=== PATIENT | male | born 1975 | race Caucasian/White ===

== ENCOUNTER 2020-02-10 12:16 | Observation (INO) | payer OTHER, SELFPAY ==
[2020-02-10] VITALS (20 sets, daily range): BP systolic 125–156; BP diastolic 60–88; PULSE 94–120; RESP 16–34; TEMP 36.8–40.1; O2SAT 94–98; BMI 36.5
--- NOTE | 2020-02-10 12:43 | ED_ITS ---
HPI - URI/Sore Throat General Chief Complaint: Upper Respiratory Symptoms Stated Complaint: flu or covid lungs hurt chills Time Seen by Provider: 02/10/20 12:43 Source: patient and family Mode of arrival: Ambulatory Limitations: no limitations History of Present Illness HPI Narrative: This is a 44-year-old male who comes to the emergency department with concern for coronavirus. Patient states symptoms started last Tuesday which was 7 days ago. Patient states that he has had fevers intermittently, chills, cough, he started developing some chest pain yesterday and continuing in today. Patient states that he does not feel short of breath. He has had myalgias. Denies any nausea, no vomiting, no other GI or urinary symptoms besides some mild diarrhea several days ago which has resolved. No rashes or skin changes. He does take nortriptyline for neuropathy and states that it is idiopathic and they do not know the cause. He denies any other major medical issues. No tobacco, occasional alcohol, occasional THC and no other illicit. Related Data Allergies Allergy/AdvReac Type Severity Reaction Status Date / Time No Known Drug Allergies Allergy Verified 02/10/20 14:12 Review of Systems Review of Systems ROS Unobtainable: All systems reviewed & are unremarkable except as noted in HPI and below Patient History Medical History (Updated 02/10/20 @ 16:10 by Bobbi Denson DO) Neuropathy alcohol intake frequency: holidays/special occasions only Substance Use Type: marijuana Exam Narrative Exam Narrative: GEN: well nourished, well appearing male, alert and oriented x 3, patient appears to be in mild distress. HEENT: Atraumatic, pupils are equal round reactive to light, extraocular movements are intact HEART: Tachycardic but Regular rate and rhythm without murmur, clicks, rubs. Pulses equal in upper and lower LUNGS:Lungs clear to auscultation, no wheezes, rales, crackles, chest moves symmetrically, no tachypnea or accessory muscle use noted ABD:bowel sounds normal, soft, non-tender, no guarding, rebound, rigidity, no masses noted, no hepatosplenomegaly MSCL: Non-tender, no muscle atrophy, full range of motion NEURO:CN 2-12 intact, sensation normal Initial Vital Signs Initial Vital Signs: Vital Signs Temperature 100.0 F H 02/10/20 12:45 Pulse Rate 111 H 02/10/20 12:45 Pulse Oximetry 96 02/10/20 12:45 Course Orders Ordered: ED Orders 02/10/20 12:59 XR chest 1V Stat 02/10/20 13:10 Blood Culture Stat C-Reactive Protein Quant Stat COVID19 Stat Complete Blood Count AUTO DIFF Stat Comprehensive Metabolic Panel Stat D Dimer Stat Ferritin Stat Influenza A & B (PCR) Stat Lactate (Lactic Acid) Stat Lactate Dehydrogenase Stat Procalcitonin Stat Respiratory Panel (Film Array) Stat Troponin & CK Cardiac Panel Stat 02/10/20 13:39 COVID19 Stat Sodium Chloride (Normal Saline 0.9%) 1,000 mls @ 125 mls/hr IV CONT AUGUSTO Last Infusion: 02/10/20 15:52 Dose: 0 mls/hr Documented by: Infusion: 02/10/20 14:12 Dose: 1,000 mls/hr Documented by: Admin: 02/10/20 13:40 Dose: 125 mls/hr Documented by: LE Sodium Chloride (Normal Saline 0.9%) 1,000 mls @ 125 mls/hr IV CONT AUGUSTO Last Admin: 02/10/20 16:12 Dose: 125 mls/hr Documented by: LE Discontinued Medications Acetaminophen (Acetaminophen 325 Mg Tablet) 975 mg PO NOW ONE Stop: 02/10/20 14:06 Last Admin: 02/10/20 14:12 Dose: 975 mg Documented by: LE Reevaluation(s) Reevaluation #1: Updated patient with lab findings, plan to observe overnight as he has multiple elevated markers an indeterminate troponin. We did discuss patient's other lab findings today. Time: 15:44 Consultations Consultation #1: Spoke with Dr. Tineo kindly accepts for observation. Patient has elevated markers, troponin in the indeterminate range with persistent tachycardia in the department. He is not hypoxic, his chest x-ray is currently negative. We did discuss if D-dimer and decision was made to defer CT imaging. Time: 15:44 Vital Signs Vital signs: Vital Signs - 8 hr 02/10/20 12:45 02/10/20 13:00 02/10/20 13:16 Temperature 100.0 F H Pulse Rate 111 H 112 H 115 H Respiratory Rate 29 H 28 H Blood Pressure 132/82 Pulse Oximetry 96 97 97 02/10/20 13:28 02/10/20 13:30 02/10/20 14:00 Temperature 100.0 F H Pulse Rate 115 H 113 H 114 H Respiratory Rate 22 23 21 Blood Pressure 132/82 127/65 129/79 Pulse Oximetry 96 97 97 02/10/20 14:12 02/10/20 14:30 02/10/20 15:00 Temperature 100.0 F H Pulse Rate 109 H 109 H Respiratory Rate 27 H 26 H Blood Pressure 141/76 H 145/78 H Pulse Oximetry 97 98 02/10/20 15:30 02/10/20 16:00 Temperature Pulse Rate 107 H 101 H Respiratory Rate 34 H 28 H Blood Pressure 149/72 H 155/88 H Pulse Oximetry 96 96 MDM - URI/Sore Throat Lab Data Attestation: I reviewed the patient's lab results. Result diagrams: 02/10/20 13:10 02/10/20 13:10 Labs: Lab Results 02/10/20 02/10/20 02/10/20 Range/Units 13:10 13:10 13:10 WBC 5.9 (4.5-11.0) X10^3/uL RBC 5.52 (4.5-5.9) X10^6/uL Hgb 17.0 (13.5-17.5) g/dL Hct 48.6 (41-53) % MCV 88.2 (80-100) fL MCH 30.9 (26-34) PG MCHC 35.1 (30-36) % RDW 13.1 (11.6-14.8) % Plt Count 131 L (150-400) X10^3/uL Neut % (Auto) 47.4 L (50-75) % Lymph % (Auto) 41.3 H (25-40) % Cascade % (Auto) 10.7 (3-14) % Eos % (Auto) 0.1 L (2-4) % Baso % (Auto) 0.5 (0-2) % Neut # (Auto) 2800 (3376-3564) /uL Lymph # (Auto) 2400 (6489-8387) /uL Cascade # (Auto) 600 (0-900) /uL Eos # (Auto) 0 (0-450) /uL Baso # (Auto) 0 (0-100) /uL D-Dimer (<230) ng/mL Sodium 134 L (137-145) mmol/L Potassium 4.2 (3.4-5.1) mmol/L Chloride 102 (98-107) mmol/L Carbon Dioxide 28 (22-32) mmol/L BUN 14 (9-20) mg/dL Creatinine 1.06 (0.66-1.25) mg/dL Estimated GFR > 60.0 (>60) mL/min BUN/Creatinine Ratio 13.2 (6-22) Glucose 109 H (70-100) mg/dL Lactate (0.7-2.1) mmol/L Calcium 8.7 (8.4-10.2) mg/dL Ferritin 1090 H (18-464) ng/mL Total Bilirubin 0.9 (0.2-1.3) mg/dL AST 61 H (17-59) IU/L ALT 96 H (<50) IU/L Alkaline Phosphatase 74 (38-126) U/L Lactate Dehydrogenase (313-618) U/L Total Creatine Kinase 81 (55-170) U/L CK-MB (CK-2) TNP CK-MB (CK-2) Rel Index TNP Troponin I 0.048 H (0.01-0.034) ng/mL C-Reactive Protein 2.2 H (<1.0) mg/dL Total Protein 8.3 H (6.3-8.2) g/dL Albumin 4.3 (3.5-5.0) g/dL Globulin 4.0 (1.7-4.1) g/dL Albumin/Globulin Ratio 1.1 (1.0-2.8) Procalcitonin (<0.5) ng/mL Chlamy pneumoniae PCR (Not Detect) Adenovirus (PCR) (Not Detect) B.parapertussis DNA PCR (Not Detect) Coronavirus OC43 (PCR) (Not Detect) Coronavirus HKU1 (PCR) (Not Detect) Coronavirus 229E (PCR) (Not Detect) COVID-19 PCR (Negative) Coronavirus NL63 (PCR) (Not Detect) Human Metapneumovir PCR (Not Detect) Influenza A (RT-PCR) Flu a negative (NEGATIVE) Influenza Type A (PCR) (Not Detect) Influenza B (RT-PCR) Flu b negative (NEGATIVE) Influenza Type B (PCR) (Not Detect) M. pneumoniae (PCR) (Not Detect) Parainfluenza 1 (PCR) (Not Detect) Parainfluenza 2 (PCR) (Not Detect) Parainfluenza 3 (PCR) (Not Detect) Parainfluenza 4 (PCR) (Not Detect) RSV (PCR) (Not Detect) Entero/Rhino (PCR) (Not Detect) 02/10/20 02/10/20 02/10/20 Range/Units 13:10 13:10 13:10 WBC (4.5-11.0) X10^3/uL RBC (4.5-5.9) X10^6/uL Hgb (13.5-17.5) g/dL Hct (41-53) % MCV (80-100) fL MCH (26-34) PG MCHC (30-36) % RDW (11.6-14.8) % Plt Count (150-400) X10^3/uL Neut % (Auto) (50-75) % Lymph % (Auto) (25-40) % Cascade % (Auto) (3-14) % Eos % (Auto) (2-4) % Baso % (Auto) (0-2) % Neut # (Auto) (2240-9976) /uL Lymph # (Auto) (0310-5109) /uL Cascade # (Auto) (0-900) /uL Eos # (Auto) (0-450) /uL Baso # (Auto) (0-100) /uL D-Dimer (<230) ng/mL Sodium (137-145) mmol/L Potassium (3.4-5.1) mmol/L Chloride (98-107) mmol/L Carbon Dioxide (22-32) mmol/L BUN (9-20) mg/dL Creatinine (0.66-1.25) mg/dL Estimated GFR (>60) mL/min BUN/Creatinine Ratio (6-22) Glucose (70-100) mg/dL Lactate 1.0 (0.7-2.1) mmol/L Calcium (8.4-10.2) mg/dL Ferritin (18-464) ng/mL Total Bilirubin (0.2-1.3) mg/dL AST (17-59) IU/L ALT (<50) IU/L Alkaline Phosphatase (38-126) U/L Lactate Dehydrogenase (313-618) U/L Total Creatine Kinase (55-170) U/L CK-MB (CK-2) CK-MB (CK-2) Rel Index Troponin I (0.01-0.034) ng/mL C-Reactive Protein (<1.0) mg/dL Total Protein (6.3-8.2) g/dL Albumin (3.5-5.0) g/dL Globulin (1.7-4.1) g/dL Albumin/Globulin Ratio (1.0-2.8) Procalcitonin 0.08 (<0.5) ng/mL Chlamy pneumoniae PCR (Not Detect) Adenovirus (PCR) (Not Detect) B.parapertussis DNA PCR (Not Detect) Coronavirus OC43 (PCR) (Not Detect) Coronavirus HKU1 (PCR) (Not Detect) Coronavirus 229E (PCR) (Not Detect) COVID-19 PCR Positive H (Negative) Coronavirus NL63 (PCR) (Not Detect) Human Metapneumovir PCR (Not Detect) Influenza A (RT-PCR) (NEGATIVE) Influenza Type A (PCR) (Not Detect) Influenza B (RT-PCR) (NEGATIVE) Influenza Type B (PCR) (Not Detect) M. pneumoniae (PCR) (Not Detect) Parainfluenza 1 (PCR) (Not Detect) Parainfluenza 2 (PCR) (Not Detect) Parainfluenza 3 (PCR) (Not Detect) Parainfluenza 4 (PCR) (Not Detect) RSV (PCR) (Not Detect) Entero/Rhino (PCR) (Not Detect) 02/10/20 02/10/20 02/10/20 Range/Units 13:10 13:10 13:10 WBC (4.5-11.0) X10^3/uL RBC (4.5-5.9) X10^6/uL Hgb (13.5-17.5) g/dL Hct (41-53) % MCV (80-100) fL MCH (26-34) PG MCHC (30-36) % RDW (11.6-14.8) % Plt Count (150-400) X10^3/uL Neut % (Auto) (50-75) % Lymph % (Auto) (25-40) % Cascade % (Auto) (3-14) % Eos % (Auto) (2-4) % Baso % (Auto) (0-2) % Neut # (Auto) (7588-9190) /uL Lymph # (Auto) (9697-4437) /uL Cascade # (Auto) (0-900) /uL Eos # (Auto) (0-450) /uL Baso # (Auto) (0-100) /uL D-Dimer 277 H (<230) ng/mL Sodium (137-145) mmol/L Potassium (3.4-5.1) mmol/L Chloride (98-107) mmol/L Carbon Dioxide (22-32) mmol/L BUN (9-20) mg/dL Creatinine (0.66-1.25) mg/dL Estimated GFR (>60) mL/min BUN/Creatinine Ratio (6-22) Glucose (70-100) mg/dL Lactate (0.7-2.1) mmol/L Calcium (8.4-10.2) mg/dL Ferritin (18-464) ng/mL Total Bilirubin (0.2-1.3) mg/dL AST (17-59) IU/L ALT (<50) IU/L Alkaline Phosphatase (38-126) U/L Lactate Dehydrogenase 869 H (313-618) U/L Total Creatine Kinase (55-170) U/L CK-MB (CK-2) CK-MB (CK-2) Rel Index Troponin I (0.01-0.034) ng/mL C-Reactive Protein (<1.0) mg/dL Total Protein (6.3-8.2) g/dL Albumin (3.5-5.0) g/dL Globulin (1.7-4.1) g/dL Albumin/Globulin Ratio (1.0-2.8) Procalcitonin (<0.5) ng/mL Chlamy pneumoniae PCR Not detected (Not Detect) Adenovirus (PCR) Not detected (Not Detect) B.parapertussis DNA PCR Not detected (Not Detect) Coronavirus OC43 (PCR) Not detected (Not Detect) Coronavirus HKU1 (PCR) Not detected (Not Detect) Coronavirus 229E (PCR) Not detected (Not Detect) COVID-19 PCR (Negative) Coronavirus NL63 (PCR) Not detected (Not Detect) Human Metapneumovir PCR Not detected (Not Detect) Influenza A (RT-PCR) (NEGATIVE) Influenza Type A (PCR) Not detected (Not Detect) Influenza B (RT-PCR) (NEGATIVE) Influenza Type B (PCR) Not detected (Not Detect) M. pneumoniae (PCR) Not detected (Not Detect) Parainfluenza 1 (PCR) Not detected (Not Detect) Parainfluenza 2 (PCR) Not detected (Not Detect) Parainfluenza 3 (PCR) Not detected (Not Detect) Parainfluenza 4 (PCR) Not detected (Not Detect) RSV (PCR) Not detected (Not Detect) Entero/Rhino (PCR) Not detected (Not Detect) 02/10/20 Range/Units 13:39 WBC (4.5-11.0) X10^3/uL RBC (4.5-5.9) X10^6/uL Hgb (13.5-17.5) g/dL Hct (41-53) % MCV (80-100) fL MCH (26-34) PG MCHC (30-36) % RDW (11.6-14.8) % Plt Count (150-400) X10^3/uL Neut % (Auto) (50-75) % Lymph % (Auto) (25-40) % Cascade % (Auto) (3-14) % Eos % (Auto) (2-4) % Baso % (Auto) (0-2) % Neut # (Auto) (6747-1017) /uL Lymph # (Auto) (5765-2068) /uL Cascade # (Auto) (0-900) /uL Eos # (Auto) (0-450) /uL Baso # (Auto) (0-100) /uL D-Dimer (<230) ng/mL Sodium (137-145) mmol/L Potassium (3.4-5.1) mmol/L Chloride (98-107) mmol/L Carbon Dioxide (22-32) mmol/L BUN (9-20) mg/dL Creatinine (0.66-1.25) mg/dL Estimated GFR (>60) mL/min BUN/Creatinine Ratio (6-22) Glucose (70-100) mg/dL Lactate (0.7-2.1) mmol/L Calcium (8.4-10.2) mg/dL Ferritin (18-464) ng/mL Total Bilirubin (0.2-1.3) mg/dL AST (17-59) IU/L ALT (<50) IU/L Alkaline Phosphatase (38-126) U/L Lactate Dehydrogenase (313-618) U/L Total Creatine Kinase (55-170) U/L CK-MB (CK-2) CK-MB (CK-2) Rel Index Troponin I (0.01-0.034) ng/mL C-Reactive Protein (<1.0) mg/dL Total Protein (6.3-8.2) g/dL Albumin (3.5-5.0) g/dL Globulin (1.7-4.1) g/dL Albumin/Globulin Ratio (1.0-2.8) Procalcitonin (<0.5) ng/mL Chlamy pneumoniae PCR (Not Detect) Adenovirus (PCR) (Not Detect) B.parapertussis DNA PCR (Not Detect) Coronavirus OC43 (PCR) (Not Detect) Coronavirus HKU1 (PCR) (Not Detect) Coronavirus 229E (PCR) (Not Detect) COVID-19 PCR Positive H (Negative) Coronavirus NL63 (PCR) (Not Detect) Human Metapneumovir PCR (Not Detect) Influenza A (RT-PCR) (NEGATIVE) Influenza Type A (PCR) (Not Detect) Influenza B (RT-PCR) (NEGATIVE) Influenza Type B (PCR) (Not Detect) M. pneumoniae (PCR) (Not Detect) Parainfluenza 1 (PCR) (Not Detect) Parainfluenza 2 (PCR) (Not Detect) Parainfluenza 3 (PCR) (Not Detect) Parainfluenza 4 (PCR) (Not Detect) RSV (PCR) (Not Detect) Entero/Rhino (PCR) (Not Detect) Imaging Data Chest x-ray: Radiologist's Impression: [address] [id number] ReportSigned Patient: Jonatan Brice#: [id number]: [id number]:[id number]/Sex: 44 / MDate of Service: 02/10/20Loc: EDAccession Number: [id number] Procedure: XR chest 1V Ordering Provider: Bobbi Denson D.O. PROCEDURE: XR CHEST 1V INDICATIONS: flu-like symptoms, suspected covid TECHNIQUE: One view of the chest was acquired. COMPARISON: [facility], CR, XR CHEST 2 VIEWS, 01/22/2020, 21:56. FINDINGS: Surgical changes and devices: None. Lungs and pleura: Lungs are clear. No pleural effusions or pneumothorax. Mediastinum: Mediastinal contours appear normal. Heart size is normal. Bones and chest wall: No suspicious bony lesions. Overlying soft tissues appear unremarkable. IMPRESSION: No definite infiltrates are seen. If there is clinical concern for a developing pulmonary process, a short-term followup chest series (with PA and lateral views, performed in deep inspiration) is suggested for further evaluation. Dictated by: Edi Pina M.D. on 02/10/2020 at 12:25 Approved by: Edi Pina M.D. on 02/10/2020 at 12:26 ECG Data Attestation: I personally reviewed and interpreted this ECG as follows: Interpretation: Sinus tachycardia with a rate of 111, P are 150, QRS 86 and QTC of 435. No ST elevation depression appreciated hyperacute T-waves V2 3 and 4, Q-wave in lead 3 but not appreciated elsewhere. MDM Narrative Medical decision making narrative: Patient comes in with persistent tachycardia, he has not been hypoxic in the department has a negative chest x-ray and is positive for coronavirus. Patient risk factors include obesity, being male and no knowns COPD but does smoke marijuana. Patient was given a 1L bolus which mildly improved his tachycardia but did not resolve. His labs do show some elevated markers a mildly elevated troponin which is in the indeterminate range, ferritin of 1090, lactate dehydrogenase of 869, C reactive protein of 2.2, LFTs are mildly elevated with a mild hyponatremia 134, normal renal function and electrolytes otherwise. CBC shows low platelets at 131 with elevated lymphocyte but normal white count and hemoglobin. During patient's stay he remained tachycardic and with his alterations in his markers particularly his troponin was discussed with the hospitalist with plans for observation. We did discuss D-dimer is elevated often in patient's with coronavirus and is it is mildly elevated will defer CT angiography is patient does not have hypoxia. Discharge Plan Departure Patient Disposition: Admitted As Inpatient Clinical Impression: COVID-19 virus infection, Tachycardia, Elevated troponin Admit Date/Time: 02/10/20 16:12 Admit Provider: Ansley Tineo
--- NOTE | 2020-02-10 12:59 | DI.RAD.S_ITS ---
PROCEDURE: XR CHEST 1V INDICATIONS: flu-like symptoms, suspected covid TECHNIQUE: One view of the chest was acquired. COMPARISON: [facility], CR, XR CHEST 2 VIEWS, 01/22/2020, 21:56. FINDINGS: Surgical changes and devices: None. Lungs and pleura: Lungs are clear. No pleural effusions or pneumothorax. Mediastinum: Mediastinal contours appear normal. Heart size is normal. Bones and chest wall: No suspicious bony lesions. Overlying soft tissues appear unremarkable. IMPRESSION: No definite infiltrates are seen. If there is clinical concern for a developing pulmonary process, a short-term followup chest series (with PA and lateral views, performed in deep inspiration) is suggested for further evaluation. Dictated by: Edi Pina M.D. on 02/10/2020 at 12:25 Approved by: Edi Pina M.D. on 02/10/2020 at 12:26
[2020-02-10] MEDS: SODIUM CHLORIDE 0.9% 1,000 ML 125 ML IV ×3 (13:40→23:46)
[2020-02-10 13:46] LABS: COVID19 -Nasal RAPID POSITIVE (Negative)
[2020-02-10 13:52] LABS: Add Manual Diff / Slide Review NO; Basophils Absolute Auto 0 /uL (0-100); Basophils Percent Auto 0.5 % (0-2); Eosinophils Absolute Auto 0 /uL (0-450); Eosinophils Percent Auto 0.1 % (2-4); Hematocrit 48.6 % (41-53); Lymphocytes Absolute Auto 2400 /uL (1100-4500); Lymphocytes Percent Auto 41.3 % (25-40); Mean Corpuscular HGB Conc 35.1 % (30-36); Mean Corpuscular Hemoglobin 30.9 PG (26-34); Mean Corpuscular Volume 88.2 fL (80-100); Monocytes Absolute Auto 600 /uL (0-900); Monocytes Percent Auto 10.7 % (3-14); Neutrophils Absolute Auto 2800 /uL (1500-7000); Neutrophils Percent Auto 47.4 % (50-75); Platelet Count 131 X10^3/uL (150-400); Red Blood Cell Count 5.52 X10^6/uL (4.5-5.9); Red Cell Distribution Width 13.1 % (11.6-14.8); White Blood Cell Count 5.9 X10^3/uL (4.5-11.0)
[2020-02-10 13:58] LABS: Influenza A - CEPHEID Flu A NEGATIVE (NEGATIVE); Influenza B - CEPHEID Flu B NEGATIVE (NEGATIVE)
[2020-02-10 14:00] LABS: Alanine Aminotransferase 96 IU/L (<50); Albumin 4.3 g/dL (3.5-5.0); Albumin Globulin Ratio 1.1 (1.0-2.8); Alkaline Phosphatase 74 U/L (38-126); Aspartate Aminotransferase 61 IU/L (17-59); BUN Creatinine Ratio 13.2 (6-22); Bilirubin Total 0.9 mg/dL (0.2-1.3); Blood Urea Nitrogen 14 mg/dL (9-20); Calcium 8.7 mg/dL (8.4-10.2); Carbon Dioxide 28 mmol/L (22-32); Chloride 102 mmol/L (98-107); Creatine Kinase 81 U/L (55-170); Estimated Glomerular Filt Rate > 60.0 mL/min (>60); Glucose 109 mg/dL (70-100); HEMOLYSIS 17 (0-50); Potassium 4.2 mmol/L (3.4-5.1); Sodium 134 mmol/L (137-145); Total Protein 8.3 g/dL (6.3-8.2)
[2020-02-10 14:12] LABS: Troponin I 0.048 ng/mL (0.01-0.034)
[2020-02-10] MEDS: ACETAMINOPHEN 325 MG TABLET 975 MG PO (14:12)
[2020-02-10 14:30] LABS: C-Reactive Protein Quant 2.2 mg/dL (<1.0)
[2020-02-10 14:50] LABS: COVID19 -Nasal RAPID POSITIVE (Negative)
[2020-02-10 15:07] LABS: Procalcitonin 0.08 ng/mL (<0.5)
[2020-02-10 15:30] LABS: Ferritin 1090 ng/mL (18-464)
[2020-02-10 16:08] LABS: Lactate Dehydrogenase 869 U/L (313-618)
[2020-02-10 16:14] LABS: D Dimer 277 ng/mL (<230)
[2020-02-10 17:23] LABS: Adenovirus Not Detected (Not Detect); Bordetella pertussis Not Detected (Not Detect); Chlamydophila pneumoniae Not Detected (Not Detect); Coronavirus 229E Not Detected (Not Detect); Coronavirus HKU1 Not Detected (Not Detect); Coronavirus NL 63 Not Detected (Not Detect); Coronavirus OC43 Not Detected (Not Detect); Human Metapneumovirus Not Detected (Not Detect); Human Rhinovirus/Enterovirus Not Detected (Not Detect); Influenza A Not Detected (Not Detect); Influenza B Not Detected (Not Detect); Mycoplasma pneumoniae Not Detected (Not Detect); Parainfluenza Virus 1 Not Detected (Not Detect); Parainfluenza Virus 2 Not Detected (Not Detect); Parainfluenza Virus 3 Not Detected (Not Detect); Parainfluenza Virus 4 Not Detected (Not Detect); Respiratory Syncytial Virus Not Detected (Not Detect)
--- NOTE | 2020-02-10 20:10 | PC.NURSE ---
Admit/Evening Shift Note- Patient arrived to room via stretcher from ER at 1720. Admit questions done, medications reviewed, physcial assessment done, and skin check completed. No complaints of pain at this time. Oriented patient to bed and bed controls, room, bathroom, lights, menu, phone, and call dewey/tv remote. patient able to walk on his own with steady gait noted. safety measures in place. Patient agrees to call for assistance as needed. Call dewey and phone within reach. will continue to monitor.
[2020-02-10 20:36] LABS: Magnesium 2.1 mg/dL (1.6-2.3)
--- NOTE | 2020-02-10 20:39 | P.HP_ITS ---
History of Present Illness History of Present Illness Date Patient Seen: 02/10/20 Time Patient Seen: 20:15 Chief complaint: flu or covid lungs hurt chills Narrative: Mr. Jonatan Brice is a 44-year-old male with a past medical history only significant for idiopathic neuropathy who has a past smoker and presents to the ER for concerns of coronavirus. Patient reports onset of symptoms 7 days ago reporting generalized malaise and developing fevers and body aches a progressing to chills with cough. Yesterday the patient developed a pleuritic chest pain he describes is midsternal that he states he has had before with pneumonia. Today the pain became worse prompting him to present to the ER for evaluation. The patient's son is also COVID positive but his symptoms have lasted for only few days and have resolved. The patient's is yet being leslie alyssa. He has had no other known COVID-19 contacts. He has had no other recent complaints illness or injuries. He denies complaints of headaches or dizziness and has no vision changes nasal congestion or sore throat. He has chest pain as above described as midsternal nonradiating pleuritic pain. He denies complaints of shortness of breath as a protracted dry nonproductive cough which comes in pa roxysms. He denies complaints of abdominal pain and has had no nausea vomiting. He had episode of diarrhea which reports has resolved having a formed stool today. He denies complaints of urinary problems and no nocturia. Patient has a history of idiopathic neuropathy affecting bilateral forefeet which patient states is not currently present. Upon arrival ER the patient's temperature 100.0?, heart rate of 111, blood pressure 132/82, respiratory rate of 29 saturating 97% on room air. Chest x-ray is obtained finding no infiltrates and no mention of lymphadenopathy with normal heart size. Twelve lead EKG is obtained which shows sinus tachycardia without ectopy, no ST or T-wave changes and no evidence of infarct, normal axis. On laboratory analysis he has white count of 5.9 with reduced neutrophils at 47.4% and elevated lymphs at 41.3%. His hemoglobin is 17.0 and hematocrit of 48.6. Platelet count is 131. He has a sodium of 134 with a potassium 4.2. His BUN is 14 and creatinine is 1.06. His nonfasting glucose is 109. On liver functions he has a total bilirubin of 0.9, AST 61, ALT of 46 and alkaline phosphatase 74. Has a total CK of 81 and elevated troponin at 0.048. He has elevated COVID markers including a D-dimer of 277, CRP of 2.2, ferritin is 1090 and LDH is 869. In the ER the patient received Tylenol 975 mg, L normal saline and normal saline at 125 cc/hour. The patient is admitted to the medicine service for COVID-19 infection with chest pain and elevated troponin. Patient History Medical History (Updated 02/10/20 @ 20:50 by CRISTIANO Ball) Neuropathy Surgical History (Updated 02/10/20 @ 20:50 by CRISTIANO Ball) No significant past surgical history Family & Social History Family History (Updated 02/10/20 @ 20:51 by CRISTIANO Ball) Father Renal disease Kidney failure Mother Heart disease [place] (myocardial infarction) Social History: household members spouse,children Prior Living Arrangements House Safety & Behavioral: Feels Safe in Current Yes Environment Been Physically Hurt or No Threatened By a Person Suicidal Ideation Description None Suicide Plan Description No Plan Tobacco & Substance use: Smoking Status Former smoker alcohol intake frequency holiday/special occasion Substance Use Type marijuana Meds Home Medications and Allergies Home Medications Medication Instructions Recorded Confirmed Type nortriptyline 25 mg PO BEDTIME 02/10/20 02/10/20 History Allergies Allergy/AdvReac Type Severity Reaction Status Date / Time No Known Drug Allergies Allergy Verified 02/10/20 14:12 Review of Systems Review of Systems ROS: Yes All systems reviewed with the patient and are negative except as otherwise documented Exam Vital Signs (past 8 hours): - 02/10/20 12:45 02/10/20 13:00 02/10/20 13:16 Temperature 100.0 F H Pulse Rate 111 H 112 H 115 H Respiratory Rate 29 H 28 H Blood Pressure 132/82 Pulse Oximetry 96 97 97 02/10/20 13:28 02/10/20 13:30 02/10/20 14:00 Temperature 100.0 F H Pulse Rate 115 H 113 H 114 H Respiratory Rate 22 23 21 Blood Pressure 132/82 127/65 129/79 Pulse Oximetry 96 97 97 02/10/20 14:12 02/10/20 14:30 02/10/20 15:00 Temperature 100.0 F H Pulse Rate 109 H 109 H Respiratory Rate 27 H 26 H Blood Pressure 141/76 H 145/78 H Pulse Oximetry 97 98 02/10/20 15:30 02/10/20 16:00 02/10/20 16:59 Temperature 99.8 F H Pulse Rate 107 H 101 H Respiratory Rate 34 H 28 H Blood Pressure 149/72 H 155/88 H Pulse Oximetry 96 96 02/10/20 17:27 Temperature 98.9 F Pulse Rate 96 H Respiratory Rate 20 Blood Pressure 138/67 Pulse Oximetry 98 Oxygen Delivery Method Room Air Oxygen Flow Rate 0 Narrative Exam Narrative: GENERAL APPEARANCE: well developed, obese male who is alert and responsive, flushed in ill-appearing HEENT: Normocephalic, PERRLA, pink conjunctiva, EOMs intact without nystagmus, no sinus tenderness to percussion, clear rhinorrhea, mucous membranes are dry and pink without lesions or exudate. NECK/THYROID: neck supple, no JVD, no carotid bruit, no thyromegaly, trachea midline. LYMPH NODES: no cervical or supraclavicular lymphadenopathy. SKIN: Flushed, hot, dry, no visible lesions or rashes. HEART: Tachycardia rate with regular rhythm, S1-S2, no murmur, no rubs or gallops, brisk capillary refill, no edema LUNGS: clear to auscultation bilaterally, no coarseness crackles or wheezing, dry nonproductive cough present CHEST: Symmetrical movement, no accessory muscle use, good tidal volume, no chest pain with AP and lateral compression. ABDOMEN: Soft, protuberant, no distention, no abdominal tenderness, no guarding or peritoneal signs, no organomegaly, no flank or suprapubic tenderness, active bowel tones. BACK: Normal curvature, nontender to palpation, no back pain with straight leg raise EXTREMITIES: moves all extremities, strength is 5/5 and symmetrical, no deformities or joint effusions. NEUROLOGIC: AAO x4, no focal neurologic deficits, cranial nerves II-XII grossly intact, sensation intact to light touch, hearing grossly normal to speech. PSYCH: Good judgment, good insight, linear thought process, cooperative, sheba ropriate with stable behavior Objective Labs Result Diagrams: 02/10/20 13:10 02/10/20 13:10 Labs: Laboratory Results - last 24 hr 02/10/20 02/10/20 02/10/20 12:59 13:10 13:10 WBC 5.9 RBC 5.52 Hgb 17.0 Hct 48.6 MCV 88.2 MCH 30.9 MCHC 35.1 RDW 13.1 Plt Count 131 L Neut % (Auto) 47.4 L Lymph % (Auto) 41.3 H [place] % (Auto) 10.7 Eos % (Auto) 0.1 L Baso % (Auto) 0.5 Neut # (Auto) 2800 Lymph # (Auto) 2400 [place] # (Auto) 600 Eos # (Auto) 0 Baso # (Auto) 0 D-Dimer Sodium Potassium Chloride Carbon Dioxide BUN Creatinine Estimated GFR BUN/Creatinine Ratio Glucose Lactate Calcium Magnesium 2.1 Ferritin Total Bilirubin AST ALT Alkaline Phosphatase Lactate Dehydrogenase Total Creatine Kinase CK-MB (CK-2) CK-MB (CK-2) Rel Index Troponin I C-Reactive Protein Total Protein Albumin Globulin Albumin/Globulin Ratio Procalcitonin Chlamy pneumoniae PCR Adenovirus (PCR) B.parapertussis DNA PCR Coronavirus OC43 (PCR) Coronavirus HKU1 (PCR) Coronavirus 229E (PCR) COVID-19 PCR Coronavirus NL63 (PCR) Human Metapneumovir PCR Influenza A (RT-PCR) Flu a negative Influenza Type A (PCR) Influenza B (RT-PCR) Flu b negative Influenza Type B (PCR) M. pneumoniae (PCR) Parainfluenza 1 (PCR) Parainfluenza 2 (PCR) Parainfluenza 3 (PCR) Parainfluenza 4 (PCR) RSV (PCR) Entero/Rhino (PCR) 02/10/20 02/10/20 02/10/20 13:10 13:10 13:10 WBC RBC Hgb Hct MCV MCH MCHC RDW Plt Count Neut % (Auto) Lymph % (Auto) [place] % (Auto) Eos % (Auto) Baso % (Auto) Neut # (Auto) Lymph # (Auto) [place] # (Auto) Eos # (Auto) Baso # (Auto) D-Dimer Sodium 134 L Potassium 4.2 Chloride 102 Carbon Dioxide 28 BUN 14 Creatinine 1.06 Estimated GFR > 60.0 BUN/Creatinine Ratio 13.2 Glucose 109 H Lactate 1.0 Calcium 8.7 Magnesium Ferritin 1090 H Total Bilirubin 0.9 AST 61 H ALT 96 H Alkaline Phosphatase 74 Lactate Dehydrogenase Total Creatine Kinase 81 CK-MB (CK-2) TNP CK-MB (CK-2) Rel Index TNP Troponin I 0.048 H C-Reactive Protein 2.2 H Total Protein 8.3 H Albumin 4.3 Globulin 4.0 Albumin/Globulin Ratio 1.1 Procalcitonin Chlamy pneumoniae PCR Adenovirus (PCR) B.parapertussis DNA PCR Coronavirus OC43 (PCR) Coronavirus HKU1 (PCR) Coronavirus 229E (PCR) COVID-19 PCR Positive H Coronavirus NL63 (PCR) Human Metapneumovir PCR Influenza A (RT-PCR) Influenza Type A (PCR) Influenza B (RT-PCR) Influenza Type B (PCR) M. pneumoniae (PCR) Parainfluenza 1 (PCR) Parainfluenza 2 (PCR) Parainfluenza 3 (PCR) Parainfluenza 4 (PCR) RSV (PCR) Entero/Rhino (PCR) 02/10/20 02/10/20 02/10/20 13:10 13:10 13:10 WBC RBC Hgb Hct MCV MCH MCHC RDW Plt Count Neut % (Auto) Lymph % (Auto) [place] % (Auto) Eos % (Auto) Baso % (Auto) Neut # (Auto) Lymph # (Auto) [place] # (Auto) Eos # (Auto) Baso # (Auto) D-Dimer 277 H Sodium Potassium Chloride Carbon Dioxide BUN Creatinine Estimated GFR BUN/Creatinine Ratio Glucose Lactate Calcium Magnesium Ferritin Total Bilirubin AST ALT Alkaline Phosphatase Lactate Dehydrogenase 869 H Total Creatine Kinase CK-MB (CK-2) CK-MB (CK-2) Rel Index Troponin I C-Reactive Protein Total Protein Albumin Globulin Albumin/Globulin Ratio Procalcitonin 0.08 Chlamy pneumoniae PCR Adenovirus (PCR) B.parapertussis DNA PCR Coronavirus OC43 (PCR) Coronavirus HKU1 (PCR) Coronavirus 229E (PCR) COVID-19 PCR Coronavirus NL63 (PCR) Human Metapneumovir PCR Influenza A (RT-PCR) Influenza Type A (PCR) Influenza B (RT-PCR) Influenza Type B (PCR) M. pneumoniae (PCR) Parainfluenza 1 (PCR) Parainfluenza 2 (PCR) Parainfluenza 3 (PCR) Parainfluenza 4 (PCR) RSV (PCR) Entero/Rhino (PCR) 02/10/20 02/10/20 13:10 13:39 WBC RBC Hgb Hct MCV MCH MCHC RDW Plt Count Neut % (Auto) Lymph % (Auto) [place] % (Auto) Eos % (Auto) Baso % (Auto) Neut # (Auto) Lymph # (Auto) [place] # (Auto) Eos # (Auto) Baso # (Auto) D-Dimer Sodium Potassium Chloride Carbon Dioxide BUN Creatinine Estimated GFR BUN/Creatinine Ratio Glucose Lactate Calcium Magnesium Ferritin Total Bilirubin AST ALT Alkaline Phosphatase Lactate Dehydrogenase Total Creatine Kinase CK-MB (CK-2) CK-MB (CK-2) Rel Index Troponin I C-Reactive Protein Total Protein Albumin Globulin Albumin/Globulin Ratio Procalcitonin Chlamy pneumoniae PCR Not detected Adenovirus (PCR) Not detected B.parapertussis DNA PCR Not detected Coronavirus OC43 (PCR) Not detected Coronavirus HKU1 (PCR) Not detected Coronavirus 229E (PCR) Not detected COVID-19 PCR Positive H Coronavirus NL63 (PCR) Not detected Human Metapneumovir PCR Not detected Influenza A (RT-PCR) Influenza Type A (PCR) Not detected Influenza B (RT-PCR) Influenza Type B (PCR) Not detected M. pneumoniae (PCR) Not detected Parainfluenza 1 (PCR) Not detected Parainfluenza 2 (PCR) Not detected Parainfluenza 3 (PCR) Not detected Parainfluenza 4 (PCR) Not detected RSV (PCR) Not detected Entero/Rhino (PCR) Not detected Assessment & Plan Assessment & Plan narrative: This is a 44-year-old male with a past medical history only 4 idiopathic neuropathy who presents to the ER with 1 week of fevers chills cough myalgias and developing chest pain yesterday who was found to be COVID positive. 1. COVID infection without evidence of pneumonia, acute, present on admission, active -patient with positive COVID-19, in isolation. Additional markers include low platelets of 131, D-dimer elevated at 277, ferritin 1090, CRP of 2.2 and LDH of 869. -chest x-ray shows no infiltrates. Current PF ratio is 409 with patient saturating 96% on room air. -patient with marked fever up to 104, he had received Tylenol in the ER for fev er, ordered Tylenol 650 every 4 hours as needed and ibuprofen 600 mg every 6 hours as needed. -The patient has not yet reached threshold for dexamethasone or remdesivir treatment. -requested respiratory therapy to consult, evaluate and treat. -ordered albuterol MDI 2 puffs every 4 hours as needed. -ordered guaifenesin 600 mg twice daily. -the patient appears clinically dry, ordered normal saline 100 cc/hour. 2. Chest pain with elevated troponin, acute, present on admission, active -patient describes chest pain as midsternal, pleuritic and nonradiating worsening some with cough. No chest wall pain on AP or lateral compression. Patient's risk factors of obesity, prediabetes and family history. -patient has a total CK of 81 and elevated troponin at 0.048. Twelve lead EKG reveals a sinus tachycardia at a rate of 110 without ectopy, no ST or T-wave changes no evidence infarct with a normal axis. HEART score is 3. -sinus tachycardia believed related to elevated temperature. -will obtain serial troponins to rule out cardiac injury associated with COVID- 19 infection, coags, lipid panel and TSH. -ordered aspirin 81 mg daily. -ordered nitroglycerin 0.4 mg sublingual every 5 minutes x3 as needed for chest pain. -ordered morphine 2 mg IV as needed for chest pain. 3. Pre diabetes, new diagnosis, stable -patient is obese with a BMI of 36.5 and has a mildly elevated glucose on admission at 109. -ordered hemoglobin A1c which is found to be 6.1 consistent with prediabetes. -ordered heart healthy consistent carbohydrate diet. -diabetic teaching provided. 4. Peripheral neuropathy, chronic, stable -patient with history of peripheral neuropathy of the forefoot not in evidence on exam today. -neuropathy likely a result of diabetes with the patient with a hemoglobin A1c is 6.1. -continue home regimen of nortriptyline 25 mg at bedtime. 5. Obesity with a BMI of 36.5, chronic, stable. -obesity increases the risk for diabetes and the patient is found to have an elevated hemoglobin A1c at 6 1. -the patient is also place of further risk for cardiovascular disease with his mother having cardiac disease and myocardial infarction. -requested dietitian consult. VTE prophylaxis: Heparin IV fluid: Normal saline 100 cc/hour Diet: Consistent carbohydrate, heart healthy Code status: Full code, patient designates his to be his surrogate decision maker. The patient is admitted to the hospital with COVID-19 infection with concern for complication with positive troponin requiring further monitoring and evaluation. The patient is admitted as observation with expected length of stay to be less than 2 midnights. COVID-19 COVID-19 status: Positive Result date/Date tested (Pos, Neg/Pending): 02/10/20 Scores GCS Max coma scale eye opening: Spontaneous Ernie coma scale verbal response: Orientated Max coma scale motor response: Obey commands Max coma scale total score: 15 SOFA PaO2/FIO2: >=400 mmHg Platelets: < 150 Bilirubin: < 1.2 mg/dL Hypotension: MAP >= 70 mmHg Ernie Coma Scale: 15 Renal: < 1.2 mg/dL SOFA Score: 1 Quality VTE Deep Vein Thrombosis/Pulmonary Embolism Present on Admission: No
[2020-02-10 20:48] LABS: Hemoglobin A1C% w Est Avg Glu 6.1 % (4.0-6.0)
[2020-02-10 21:07] LABS: TSH w/ Reflex to FT4 2.84 uIU/mL (0.47-4.68)
[2020-02-10 21:09] LABS: INR 1.1 (0.9-1.3)
[2020-02-10 21:11] LABS: PTT Partial Thromboplastin Tim 31 SECONDS (26.4-36.2)
[2020-02-10 21:12] LABS: Creatine Kinase 84 U/L (55-170)
[2020-02-10] MEDS: guaiFENesin ER 600 MG TAB PO (21:15)
[2020-02-10] MEDS: IBUPROFEN 600 MG TABLET PO (21:15)
[2020-02-10] MEDS: MELATONIN 3 MG TABLET 9 MG PO (21:15)
[2020-02-10] MEDS: HEPARIN 5,000 UNIT/ML VIAL 5000 UNIT SUBCUT (21:16)
[2020-02-10] MEDS: ASPIRIN EC 81 MG TABLET PO (21:22)
[2020-02-10] MEDS: NORTRIPTYLINE 10 MG CAPSULE 20 MG PO (21:23)
[2020-02-10 21:25] LABS: Troponin I 0.043 ng/mL (0.01-0.034)
--- NOTE | 2020-02-10 21:51 | PC.NURSE ---
CRISTIANO Concepcion aware of pt's temp 104. Cooling measures applied with ice packs, blankets removed and ibuprofen administered.
--- NOTE | 2020-02-10 23:06 | PC.NURSE ---
Midshift report. Pt febrile at start of shift, reduced w/ medications (tylenol/ibuprofen) as well as ice packs in groin, axilla, and neck. elevated troponin. Pain controlled with PO medications. Lungs clear to auscultation, min to no cough.
[2020-02-10] MEDS: ACETAMINOPHEN 325 MG TABLET 650 MG PO (23:45)
[2020-02-11] VITALS (11 sets, daily range): BP systolic 115–142; BP diastolic 62–85; PULSE 86–134; RESP 16–20; TEMP 36.6–37.8; O2SAT 94–98
--- NOTE | 2020-02-11 06:12 | PC.NURSE ---
Pt alert and oriented x4. Ind in room, using urinal at bedside. PT denies any pain. Fever at start of shift off 100f, resolved with giving tylenol. Pt denies complaints.
[2020-02-11 06:26] LABS: Add Manual Diff / Slide Review NO; Basophils Absolute Auto 0 /uL (0-100); Basophils Percent Auto 0.7 % (0-2); Eosinophils Absolute Auto 0 /uL (0-450); Eosinophils Percent Auto 0.4 % (2-4); Hemoglobin 15.1 g/dL (13.5-17.5); Lymphocytes Absolute Auto 2200 /uL (1100-4500); Lymphocytes Percent Auto 41.9 % (25-40); Mean Corpuscular HGB Conc 34.2 % (30-36); Mean Corpuscular Hemoglobin 30.3 PG (26-34); Mean Corpuscular Volume 88.5 fL (80-100); Monocytes Absolute Auto 500 /uL (0-900); Monocytes Percent Auto 9.9 % (3-14); Neutrophils Absolute Auto 2400 /uL (1500-7000); Neutrophils Percent Auto 47.1 % (50-75); Platelet Count 104 X10^3/uL (150-400); Red Blood Cell Count 4.97 X10^6/uL (4.5-5.9); Red Cell Distribution Width 13.2 % (11.6-14.8); White Blood Cell Count 5.2 X10^3/uL (4.5-11.0)
[2020-02-11 06:38] LABS: BUN Creatinine Ratio 15.6 (6-22); Blood Urea Nitrogen 15 mg/dL (9-20); Carbon Dioxide 28 mmol/L (22-32); Chloride 105 mmol/L (98-107); Cholesterol 96 mg/dL (140-199); Creatine Kinase 102 U/L (55-170); Estimated Glomerular Filt Rate > 60.0 mL/min (>60); Glucose 108 mg/dL (70-100); HDL Cholesterol 21 mg/dL (40-60); HEMOLYSIS 18 (0-50); LDL Cholesterol Calculated 34 mg/dL (<100); Sodium 136 mmol/L (137-145); Triglycerides 204 mg/dL (35-150)
[2020-02-11 06:49] LABS: Troponin I 0.038 ng/mL (0.01-0.034)
[2020-02-11 06:53] LABS: CKMB % Relative Index 0.9 % (1.5-5.0); Creatine Kinase MB 0.96 ng/mL (<2.37)
[2020-02-11 07:15] LABS: Lactate Dehydrogenase 580 U/L (313-618)
[2020-02-11] MEDS: ASPIRIN EC 81 MG TABLET PO (09:31)
[2020-02-11] MEDS: guaiFENesin ER 600 MG TAB PO (09:31)
[2020-02-11] MEDS: HEPARIN 5,000 UNIT/ML VIAL 5000 UNIT SUBCUT (09:31)
[2020-02-11] MEDS: ACETAMINOPHEN 325 MG TABLET 650 MG PO ×2 (09:32→18:54)
--- NOTE | 2020-02-11 14:13 | CM.DANOTE ---
Patient is a 44 year old male who was admitted on 02/10/20 for COVID symptoms/chills/lung pain. Pt has Private Pay for insurance and no PCP. EMR was reviewed. Per MD, pt tested positive for COVID 19 and admitted for OBS for positive trops. Per RT, pt doing quite well and not requiring supplemental oxygen and RT remains involved. Per RN, pt quite independent in room and no concerns at this time. SW did not completed bedside assessment due to COVID (+) precautions and no current identified discharge planning needs. Per Admissions Counselor, pt currently does not qualify for [facility] but could apply 03/21/20 although Ad Counselors recommend further follow up with pt and spouse as they have 6 children blended and if proof that they have kids on their taxes then they may qualify for [facility]. Plan: SW to follow for possible d/c home for quarantine either later today or tomorrow if pt remains stable. SW to follow for any further identified needs. KIMMY Amador Discharge Planning/Care Management CM Discharge Assessment Start: 02/11/20 14:10 Freq: Status: Active Protocol: Document 02/11/20 14:10 BF (Rec: 02/11/20 14:11 BF [id number]) Discharge Planning Assessment Assigned Occupational Rehabilitation Aide KIMMY Gonzalez DPOA/Assigned Designee Name none Advance Directives? No Advance Directives on File No History Provided By Patient,Family Member,Medical Record Has Patient been admitted in last 30 No days? Prior Living Arrangements House Household Members spouse,children Type of transporation used prior to Drives own vehicle admit Independent with ADL's Yes Is patient alert and oriented? Yes Caregiver for Another Yes: has child at home Discharge Plan Home Transportation Arrangement Family can likely provide transport at d/c Referrals Initiated None needed Review Status In Process Please Provide Date Initial DC 02/11/20 Assessment Was Performed Next Review Type Continued Stay Review
--- NOTE | 2020-02-11 16:34 | PM.PN.1 ---
Subjective Subjective Date Patient Seen: 02/11/20 Interval history: Patient continues to have significant coughing. He denies any shortness of breath. The patient is not hypoxic. His major issue is pain with coughing. He has low-grade fevers. Overall he seems to be improved Exam Vital Signs (past 8 hours): - 02/11/20 12:15 02/11/20 13:21 02/11/20 15:25 Temperature 98.5 F 99.9 F H Pulse Rate 100 H 105 H 97 H Respiratory Rate 20 18 18 Blood Pressure 142/78 H 123/62 Pulse Oximetry 97 98 98 Oxygen Delivery Method Room Air Oxygen Flow Rate 0 Narrative Exam Narrative: Pleasant male in no acute distress Lungs: Decreased breath sounds but clear to auscultation Cardiac exam: Tachycardic regular rate and rhythm normal S1-S2 Abdomen: Soft and nontender Extremities: No edema Objective Labs Result Diagrams: 02/11/20 06:10 02/11/20 06:10 Labs: Laboratory Results - last 24 hr 02/10/20 02/10/20 02/10/20 12:59 12:59 12:59 WBC RBC Hgb Hct MCV MCH MCHC RDW Plt Count Neut % (Auto) Lymph % (Auto) Sherman % (Auto) Eos % (Auto) Baso % (Auto) Neut # (Auto) Lymph # (Auto) Sherman # (Auto) Eos # (Auto) Baso # (Auto) PT INR APTT Sodium Potassium Chloride Carbon Dioxide BUN Creatinine Estimated GFR BUN/Creatinine Ratio Glucose Hemoglobin A1c 6.1 H Calcium Magnesium 2.1 Lactate Dehydrogenase Total Creatine Kinase CK-MB (CK-2) CK-MB (CK-2) Rel Index Troponin I Triglycerides Cholesterol LDL Cholesterol, Calc HDL Cholesterol TSH 2.84 Chlamy pneumoniae PCR Adenovirus (PCR) B.parapertussis DNA PCR Coronavirus OC43 (PCR) Coronavirus HKU1 (PCR) Coronavirus 229E (PCR) Coronavirus NL63 (PCR) Human Metapneumovir PCR Influenza Type A (PCR) Influenza Type B (PCR) M. pneumoniae (PCR) Parainfluenza 1 (PCR) Parainfluenza 2 (PCR) Parainfluenza 3 (PCR) Parainfluenza 4 (PCR) RSV (PCR) Entero/Rhino (PCR) 02/10/20 02/10/20 02/10/20 13:10 20:50 20:50 WBC RBC Hgb Hct MCV MCH MCHC RDW Plt Count Neut % (Auto) Lymph % (Auto) Sherman % (Auto) Eos % (Auto) Baso % (Auto) Neut # (Auto) Lymph # (Auto) Sherman # (Auto) Eos # (Auto) Baso # (Auto) PT 13.0 H INR 1.1 APTT 31 Sodium Potassium Chloride Carbon Dioxide BUN Creatinine Estimated GFR BUN/Creatinine Ratio Glucose Hemoglobin A1c Calcium Magnesium Lactate Dehydrogenase Total Creatine Kinase 84 CK-MB (CK-2) TNP CK-MB (CK-2) Rel Index TNP Troponin I 0.043 H Triglycerides Cholesterol LDL Cholesterol, Calc HDL Cholesterol TSH Chlamy pneumoniae PCR Not detected Adenovirus (PCR) Not detected B.parapertussis DNA PCR Not detected Coronavirus OC43 (PCR) Not detected Coronavirus HKU1 (PCR) Not detected Coronavirus 229E (PCR) Not detected Coronavirus NL63 (PCR) Not detected Human Metapneumovir PCR Not detected Influenza Type A (PCR) Not detected Influenza Type B (PCR) Not detected M. pneumoniae (PCR) Not detected Parainfluenza 1 (PCR) Not detected Parainfluenza 2 (PCR) Not detected Parainfluenza 3 (PCR) Not detected Parainfluenza 4 (PCR) Not detected RSV (PCR) Not detected Entero/Rhino (PCR) Not detected 02/11/20 02/11/20 02/11/20 06:10 06:10 06:10 WBC 5.2 RBC 4.97 Hgb 15.1 Hct 44.0 MCV 88.5 MCH 30.3 MCHC 34.2 RDW 13.2 Plt Count 104 L Neut % (Auto) 47.1 L Lymph % (Auto) 41.9 H Sherman % (Auto) 9.9 Eos % (Auto) 0.4 L Baso % (Auto) 0.7 Neut # (Auto) 2400 Lymph # (Auto) 2200 Sherman # (Auto) 500 Eos # (Auto) 0 Baso # (Auto) 0 PT INR APTT Sodium 136 L Potassium 4.0 Chloride 105 Carbon Dioxide 28 BUN 15 Creatinine 0.96 Estimated GFR > 60.0 BUN/Creatinine Ratio 15.6 Glucose 108 H Hemoglobin A1c Calcium 8.0 L Magnesium Lactate Dehydrogenase Total Creatine Kinase 102 CK-MB (CK-2) 0.96 CK-MB (CK-2) Rel Index 0.9 L Troponin I 0.038 H Triglycerides 204 H Cholesterol 96 L LDL Cholesterol, Calc 34 HDL Cholesterol 21 L TSH Chlamy pneumoniae PCR Adenovirus (PCR) B.parapertussis DNA PCR Coronavirus OC43 (PCR) Coronavirus HKU1 (PCR) Coronavirus 229E (PCR) Coronavirus NL63 (PCR) Human Metapneumovir PCR Influenza Type A (PCR) Influenza Type B (PCR) M. pneumoniae (PCR) Parainfluenza 1 (PCR) Parainfluenza 2 (PCR) Parainfluenza 3 (PCR) Parainfluenza 4 (PCR) RSV (PCR) Entero/Rhino (PCR) 02/11/20 06:10 WBC RBC Hgb Hct MCV MCH MCHC RDW Plt Count Neut % (Auto) Lymph % (Auto) Sherman % (Auto) Eos % (Auto) Baso % (Auto) Neut # (Auto) Lymph # (Auto) Sherman # (Auto) Eos # (Auto) Baso # (Auto) PT INR APTT Sodium Potassium Chloride Carbon Dioxide BUN Creatinine Estimated GFR BUN/Creatinine Ratio Glucose Hemoglobin A1c Calcium Magnesium Lactate Dehydrogenase 580 D Total Creatine Kinase CK-MB (CK-2) CK-MB (CK-2) Rel Index Troponin I Triglycerides Cholesterol LDL Cholesterol, Calc HDL Cholesterol TSH Chlamy pneumoniae PCR Adenovirus (PCR) B.parapertussis DNA PCR Coronavirus OC43 (PCR) Coronavirus HKU1 (PCR) Coronavirus 229E (PCR) Coronavirus NL63 (PCR) Human Metapneumovir PCR Influenza Type A (PCR) Influenza Type B (PCR) M. pneumoniae (PCR) Parainfluenza 1 (PCR) Parainfluenza 2 (PCR) Parainfluenza 3 (PCR) Parainfluenza 4 (PCR) RSV (PCR) Entero/Rhino (PCR) PFSH Medical History (Updated 02/10/20 @ 20:50 by CRISTIANO Ball) Neuropathy Surgical History (Updated 02/10/20 @ 20:50 by CRISTIANO Ball) No significant past surgical history Family History (Updated 02/10/20 @ 20:51 by CRISTIANO Ball) Father Renal disease Kidney failure Mother Heart disease ID (myocardial infarction) Social History household members: spouse and children Smoking Status: Former smoker Assessment & Plan Assessment & Plan narrative: COVID infection without evidence of pneumonia, acute, present on admission, active -patient with positive COVID-19, in isolation. Additional markers include low platelets of 131, D-dimer elevated at 277, ferritin 1090, CRP of 2.2 and LDH of 869. -chest x-ray shows no infiltrates. Current PF ratio is 409 with patient saturating 96% on room air. -patient with marked fever up to 104, he had received Tylenol in the ER for fever, ordered Tylenol 650 every 4 hours as needed and ibuprofen 600 mg every 6 hours as needed. -The patient has not yet reached threshold for dexamethasone or remdesivir treatment. -requested respiratory therapy to consult, evaluate and treat. -ordered albuterol MDI 2 puffs every 4 hours as needed. -ordered guaifenesin 600 mg twice daily. -the patient appears clinically dry, ordered normal saline 100 cc/hour. -patient eating and drinking now, will Hep-Lock IV, he is not hypoxic therefore will defer Decadron or remdesivir at this time -if the patient remains tachycardic consider chest CT to rule out PE 2. Chest pain with elevated troponin, acute, present on admission, active -patient describes chest pain as midsternal, pleuritic and nonradiating worsening some with cough. No chest wall pain on AP or lateral compression. Patient's risk factors of obesity, prediabetes and family history. -patient has a total CK of 81 and elevated troponin at 0.048. Twelve lead EKG reveals a sinus tachycardia at a rate of 110 without ectopy, no ST or T-wave changes no evidence infarct with a normal axis. HEART score is 3. -sinus tachycardia believed related to elevated temperature. -will obtain serial troponins to rule out cardiac injury associated with COVID-19 infection, coags, lipid panel and TSH. -ordered aspirin 81 mg daily. -ordered nitroglycerin 0.4 mg sublingual every 5 minutes x3 as needed for chest pain. -ordered morphine 2 mg IV as needed for chest pain. 3. Pre diabetes, new diagnosis, stable -patient is obese with a BMI of 36.5 and has a mildly elevated glucose on admission at 109. -ordered hemoglobin A1c which is found to be 6.1 consistent with prediabetes. -ordered heart healthy consistent carbohydrate diet. -diabetic teaching provided. 4. Peripheral neuropathy, chronic, stable -patient with history of peripheral neuropathy of the forefoot not in evidence on exam today. -neuropathy likely a result of diabetes with the patient with a hemoglobin A1c is 6.1. -continue home regimen of nortriptyline 25 mg at bedtime. 5. Obesity with a BMI of 36.5, chronic, stable. -obesity increases the risk for diabetes and the patient is found to have an elevated hemoglobin A1c at 6 1. -the patient is also place of further risk for cardiovascular disease with his mother having cardiac disease and myocardial infarction. -requested dietitian consult. VTE prophylaxis: Heparin IV fluid: Normal saline 100 cc/hour Diet: Consistent carbohydrate, heart healthy Code status: Full code, patient designates his to be his surrogate decision maker. The patient is admitted to the hospital with COVID-19 infection with concern for complication with positive troponin requiring further monitoring and evaluation. The patient is admitted as observation with expected length of stay to be less than 2 midnights. Quality VTE Deep Vein Thrombosis/Pulmonary Embolism Present on Admission: No
--- NOTE | 2020-02-11 16:38 | DI.CT.S_ITS ---
PROCEDURE: CT ANGIO CHEST PE PROTOCOL INDICATIONS: tachycardia/shortness of breath TECHNIQUE: After the administration of intravenous contrast, 2 mm thick sections acquired from the pulmonary apices to the posterior costophrenic angles. 3-dimensional maximum intensity projection (MIP) coronal and sagittal reformats were then acquired through the thorax. For radiation dose reduction, the following was used: automated exposure control, adjustment of mA and/or kV according to patient size. COMPARISON: [facility], CT, CT ABDOMEN PELVIS WITH CONTRAST, 01/23/2020, 1:55. [facility], CR, XR CHEST 1V, 02/10/2020, 13:09. FINDINGS: Image quality: Excellent. Pulmonary arteries: Pulmonary arteries are normal in size, and demonstrate no intraluminal filling defects to suggest central pulmonary embolism. Lungs and pleura: Lungs are abnormal with a patchy alveolar infiltration pattern within the lower, mid and to a lesser degree the upper lungs. The pattern is highly suspicious for representing atypical/viral pneumonia. No pleural effusions or pneumothorax. Central and peripheral airways are patent. Mediastinum: Heart size is normal, without pericardial effusion. No mediastinal or hilar adenopathy. Thoracic aorta is normal in caliber and enhancement. Esophagus is normal in caliber, without hiatal hernia. Bones and chest wall: No suspicious bony lesions. Ribs and thoracic spine appear intact throughout. Thyroid gland appears normal where well seen . No axillary or supraclavicular adenopathy. Abdomen: Visualized upper abdominal solid organs appear normal in the early arterial phase of enhancement. IMPRESSION: No pulmonary embolus found. Bilateral patchy airspace disease pattern suspicious for representing early manifestation of atypical/viral pneumonia at this time. This disease process was not visible on chest plain film 1 day ago. Relatively prominent hepatic steatosis, previously documented by CT scanning 01/23/20. Dictated by: Jamey Alvarez M.D. on 02/11/2020 at 17:13 Approved by: Jamey Alvarez M.D. on 02/11/2020 at 17:17
[2020-02-11] MEDS: ALBUTEROL HFA 200 PUFF/18 GM INH (COVID POS/VENT PTS) INH (16:53)
--- NOTE | 2020-02-11 20:22 | PC.NURSE ---
Patient discharged home via private car. IV and tele removed. Patient is very eager to leave and says he feels like he's in [facility] and that it's making his HR and BP elevated. States he 'just wants to go home to monitor myself, I can always come back if I think I'm getting worse. Patient received discharge instructions, two prescriptions from Dr. Denny, and was told to seek medical attention if he starts to feel short of breath, chest pain, signs of stroke, or symptomatic from elevated HR. Patient had no questions or concerns about discharge.
--- NOTE | 2020-02-13 18:52 | PC.NURSE ---
Late Entry; NS infusion initiated 02/09 at 16:12, stopped per d/c order at 21:02.
== END 2020-02-11 19:25 | disposition home or self-care (01) ==
LOC: ED 16:10 → AC 16:12
PROVIDERS: Nurse Practitioner Adult Health; Admitting Provider Internal Medicine; Emergency Provider Emergency Medicine; Referring Provider Emergency Medicine; Visit Provider Internal Medicine
DX: U07.1 COVID-19 (principal); R50.9 Fever, unspecified; R00.0 Tachycardia, unspecified; R77.8 Other specified abnormalities of plasma proteins; R73.03 Prediabetes; G62.9 Polyneuropathy, unspecified; E66.9 Obesity, unspecified; Z68.36 Body mass index [BMI] 36.0-36.9, adult
CPT/HCPCS: 36415; 71045; 71275; 80048; 80053; 80061; 82550; 82553; 82728; 83036; 83605; 83615; 83735; 84145; 84443; 84484; 85025; 85379; 85610; 85730; 86140; 87040; 87502; 87633; 87635; 93005; 93010; 94640; 94762; 96360; 96361; 96372; 99283; 99284; G0378; A9270; J1644; Q9967

== ENCOUNTER 2020-05-15 13:48 | Emergency (ER) | payer OTHER, MEDICAID, SELFPAY ==
[2020-02-10 17:25] VITALS: BMI 36.5
[2020-05-15 13:50] VITALS: BP 128/93; PULSE 107; RESP 14; TEMP 36.8; O2SAT 97; BMI 35.7
--- NOTE | 2020-05-15 14:07 | PC.NURSE ---
Pt has swelling to his R cheek. Pt believes that he bit the inside of his cheek causing the pain and swelling. Pt is concerned that after he ate lunch today that the swelling had become larger
--- NOTE | 2020-05-15 14:30 | ED_ITS ---
HPI - Dental/Oral <CRISTIANO Calixto - Last Filed: 05/15/20 15:48> General Chief complaint: Dental/Oral Stated complaint: Allergic reaction on cheek area Time Seen by Provider: 05/15/20 13:53 Source: patient Mode of arrival: Ambulatory Limitations: no limitations History of Present Illness HPI Narrative: 45yo male presents to the emergency department for right-sided facial swelling. He states today he was eating a burrito, he felt a sharp stabbing pain on the top of his to use that radiated up into his right cheek. Afterwards he noticed some swelling to the right side of his face. He was concerned about an allergic reaction. He denies any known allergies to foods, states the swelling has resolved over the past few hours. He states the swelling is unilateral, denies any throat swelling, lip swelling, shortness of breath, cough, dizziness, difficulty swallowing, nausea, vomiting, diarrhea, or any other concerns. He has not taken any medications prior to arrival. Related Data Home Medications Medication Instructions Recorded Confirmed nortriptyline 25 mg PO BEDTIME 02/10/20 02/10/20 Previous Rx's Medication Instructions Recorded penicillin V potassium 500 mg PO QID 7 Days #28 tab 05/15/20 Allergies Allergy/AdvReac Type Severity Reaction Status Date / Time No Known Drug Allergies Allergy Verified 05/15/20 13:56 Review of Systems <CRISTIANO Calixto - Last Filed: 05/15/20 15:48> Review of Systems Narrative: REVIEW OF SYSTEMS: GENERAL: Denies fever or chills. HENT: No head trauma. Right-sided mild facial swelling, see HPI. CARDIOVASCULAR: No chest pain. RESPIRATORY: No shortness of breath or cough. GASTROINTESTINAL: No nausea or vomiting. MUSCULOSKELETAL: No injury. INTEGUMENTARY: No rash, lesions, or pruritus. NEURO: No numbness or tingling. Patient History <CRISTIANO Calixto - Last Filed: 05/15/20 15:48> Medical History Neuropathy Surgical History No significant past surgical history Family History Father Renal disease Kidney failure Mother Heart disease OR (myocardial infarction) Social History household members: spouse and children Smoking Status: Former smoker Smoking Status: Former smoker alcohol intake frequency: holidays/special occasions only Substance Use Type: marijuana Exam <CRISTIANO Calixto - Last Filed: 05/15/20 15:48> Initial Vital Signs Initial Vital Signs: Vital Signs Temperature 98.2 F 05/15/20 13:50 Pulse Rate 107 H 05/15/20 13:50 Respiratory Rate 14 05/15/20 13:50 Blood Pressure 128/93 H 05/15/20 13:50 Pulse Oximetry 97 05/15/20 13:50 PHYSICAL EXAMINATION: GENERAL: Awake and alert. HENT: Normocephalic, atraumatic. Some gingivitis noted to right upper tooth approximately #2-3, a less than 1 cm sore noted to right cheek, this appears to be your patient bit his cheek. Minor swelling noted to right upper cheek, very slight to pale shave erythema noted to right to left. EYES: Conjunctiva pink, sclera white, no periorbital swelling. CARDIOVASCULAR: S1 and S2 sounds normal. Regular rate and rhythm, no murmurs, clicks, or bruits. No pedal edema. RESPIRATORY: Normal respiratory rate, trachea midline, airway patent. No stridor, nasal flaring or accessory muscle use. Lungs are clear in all [place] without wheeze, rhonchi, or crackles. No cough observed. MUSCULOSKELETAL: Normal gait and coordination. Equal tone and mass bilaterally. EXTREMITIES: CMS intact. Moves all extremities. SKIN: Warm, dry, soft, appropriate color for ethnicity. No lesions, rashes, or wounds. NEURO: Alert and Oriented X 3. <Jimmy Gentile DO - Last Filed: 05/15/20 16:05> Initial Vital Signs Initial Vital Signs: Vital Signs Temperature 98.2 F 05/15/20 13:50 Pulse Rate 107 H 05/15/20 13:50 Respiratory Rate 14 05/15/20 13:50 Blood Pressure 128/93 H 05/15/20 13:50 Pulse Oximetry 97 05/15/20 13:50 Course <CRISTIANO Calixto - Last Filed: 05/15/20 15:48> Vital Signs Vital signs: Vital Signs - 8 hr 05/15/20 13:50 Temperature 98.2 F Pulse Rate 107 H Respiratory Rate 14 Blood Pressure 128/93 H Pulse Oximetry 97 <Jimmy GentileDO - Last Filed: 05/15/20 16:05> Vital Signs Vital signs: Vital Signs - 8 hr 05/15/20 13:50 Temperature 98.2 F Pulse Rate 107 H Respiratory Rate 14 Blood Pressure 128/93 H Pulse Oximetry 97 MDM - Dental/Oral <Phylicia QuintanillaCRISTIANO - Last Filed: 05/15/20 15:48> Medical Records Attestation: I reviewed the patient's medical records. Lab Data Attestation: I reviewed the patient's lab results. [facility] Narrative Medical decision making narrative: History and examination was consistent with dental infection versus salivary gland obstruction. Given gingivitis seen on examination, patient was started on penicillin. However, he was encouraged to chew gum on the left side and 2nd hard candies to see if this has helped as it may be salivary gland issues given the sudden onset. However, sudden onset can be common with dental infections as well. Less likely allergic reaction given unilateral appearance and lack of other symptoms such as throat swelling, hives, shortness of breath. Additionally, no history of food allergies. Patient is hemodynamically stable, no concerns for respiratory compromise. No hypoxia. No wheezing. No drooling. Return precautions given for new or worsening symptoms. He was encouraged to follow up with his dentist. Patient agreed to plan of care verbalized understanding. Discharge Plan Departure Patient Disposition: Home Clinical Impression: Dental infection Instructions: DI for Dental Pain Activity Restrictions/Additional Instructions: Thank you for entrusting me with your care today. As discussed, I suspect your symptoms are most likely caused by dental infection. I prescribed you antibiotics. They were sent to [facility] in [place]. Please follow-up with your dentist in the next week for further evaluation. It is also possible that the pain the felt and the swelling could be from a salivary gland blockage. These are relieved by sucking on sour candy or chewing gum. If this causes you lot of pain then discontinue it as you may still have a tooth infection. Return emergency department for any new or worsening symptoms such as shortness of breath, chest pain, wheezing, or any other concerns. Prescriptions: New penicillin V potassium 500 mg tablet 500 mg PO QID 7 Days Qty: 28 RF: 0 No Action nortriptyline 25 mg Capsule 25 mg PO BEDTIME RF: 0 <Jimmy Gentile, DO - Last Filed: 05/15/20 16:05> Cosign ED Attending Cosignature Attestation: Dr Gentile Co-Sign Statement: I was available for consultation during this patient's emergency department visit. This chart is signed by myself for administrative purposes only. I did not have direct contact with this patient during this visit. They were seen independently by the APC.
== END 2020-05-15 14:09 | disposition home or self-care (01) ==
PROVIDERS: Emergency Provider Nurse Practitioner
DX: K04.7 Periapical abscess without sinus (principal)
CPT/HCPCS: 99281

== ENCOUNTER 2020-06-24 21:18 | Emergency (ER) | payer OTHER, MEDICAID, SELFPAY ==
[2020-02-10 17:25] VITALS: BMI 36.5
[2020-06-24 21:22] VITALS: BP 157/93; PULSE 91; RESP 17; TEMP 36.3; O2SAT 96; BMI 35.9
--- NOTE | 2020-06-24 21:26 | DI.RAD.S_ITS ---
PROCEDURE: XR CHEST 1V INDICATIONS: chest pain TECHNIQUE: One view of the chest was acquired. COMPARISON: [facility], CR, XR CHEST 1V, 02/10/2020, 13:09. FINDINGS: Surgical changes and devices: None. Lungs and pleura: Lungs are clear. No pleural effusions or pneumothorax. Mediastinum: Mediastinal contours appear normal. Heart size is normal. Bones and chest wall: No suspicious bony lesions. Overlying soft tissues appear unremarkable. IMPRESSION: No acute cardiopulmonary abnormality Dictated by: Dony Seals M.D. on 06/24/2020 at 22:06 Approved by: Dony Seals M.D. on 06/24/2020 at 22:06
[2020-06-24 22:04] LABS: Prothrombin Time 11.6 SECONDS (10.1-12.7)
[2020-06-24 22:06] LABS: Alanine Aminotransferase 56 IU/L (<50); Albumin 4.3 g/dL (3.5-5.0); Albumin Globulin Ratio 1.3 (1.0-2.8); Alkaline Phosphatase 78 U/L (38-126); Aspartate Aminotransferase 41 IU/L (17-59); BUN Creatinine Ratio 16.7 (6-22); Bilirubin Total 0.7 mg/dL (0.2-1.3); Blood Urea Nitrogen 17 mg/dL (9-20); Carbon Dioxide 29 mmol/L (22-32); Chloride 102 mmol/L (98-107); Creatine Kinase 151 U/L (55-170); Estimated Glomerular Filt Rate > 60.0 mL/min (>60); Globulin 3.3 g/dL (1.7-4.1); Glucose 161 mg/dL (70-100); HEMOLYSIS 33 (0-50); Lipase 88 U/L (23-300); Potassium 3.9 mmol/L (3.4-5.1); Sodium 138 mmol/L (137-145); Total Protein 7.6 g/dL (6.3-8.2)
[2020-06-24 22:07] LABS: PTT Partial Thromboplastin Tim 29 SECONDS (26.4-36.2)
[2020-06-24 22:15] LABS: Add Manual Diff / Slide Review NO; Basophils Absolute Auto 100 /uL (0-100); Basophils Percent Auto 0.6 % (0-2); Eosinophils Absolute Auto 200 /uL (0-450); Eosinophils Percent Auto 2.5 % (2-4); Hematocrit 46.6 % (41-53); Hemoglobin 16.5 g/dL (13.5-17.5); Lymphocytes Absolute Auto 3600 /uL (1100-4500); Lymphocytes Percent Auto 39.7 % (25-40); Mean Corpuscular HGB Conc 35.4 % (30-36); Mean Corpuscular Volume 87.6 fL (80-100); Monocytes Absolute Auto 700 /uL (0-900); Monocytes Percent Auto 8.2 % (3-14); Neutrophils Absolute Auto 4400 /uL (1500-7000); Platelet Count 219 X10^3/uL (150-400); Red Blood Cell Count 5.32 X10^6/uL (4.5-5.9); Red Cell Distribution Width 13.3 % (11.6-14.8)
[2020-06-24 22:18] LABS: Troponin I 0.035 ng/mL (0.01-0.034)
[2020-06-24 22:21] LABS: CKMB % Relative Index 0.6 % (1.5-5.0); Creatine Kinase MB 0.87 ng/mL (<2.37)
== END 2020-06-24 23:17 | disposition left against medical advice (07) ==
PROVIDERS: Emergency Provider Emergency Medicine
DX: R07.89 Other chest pain (principal)
CPT/HCPCS: 36415; 71045; 80053; 82550; 82553; 83690; 84484; 85025; 85610; 85730; 93005; 99281

== ENCOUNTER 2020-08-24 17:36 | Emergency (ER) | payer OTHER, MEDICAID, SELFPAY ==
[2020-02-10 17:25] VITALS: BMI 36.5
[2020-08-24] VITALS (11 sets, daily range): BP systolic 136–153; BP diastolic 80–102; PULSE 67–80; RESP 19–29; TEMP 36.3; O2SAT 97–99; BMI 35.4
--- NOTE | 2020-08-24 17:55 | ED.GENADULT ---
HPI - General Adult General Chief complaint: Dizziness Stated complaint: Blurred vision feeling faint x2 weeks Time Seen by Provider: 08/24/20 17:55 History of Present Illness HPI narrative: Otherwise healthy 45-year-old gentleman who presents with 2 weeks of generalized weakness, a sense that he is not able to see well as with his right eye. He notes that he had COVID in January and was hospitalized for 2 days with nasal cannula oxygen and had tachycardia for a number of months after resolution of other symptoms. He has had continued both upper and lower GI complaints and is scheduled for upper and lower endoscopy in 3 days. Two days ago noted that he had a spontaneous nose bleed while simply standing the sink. It did resolve with pressure. He describes cognitive ?fuzziness?. He has not had fevers he has had mild intermittent headaches. Related Data Home Medications Medication Instructions Recorded Confirmed nortriptyline 25 mg PO BEDTIME 02/10/20 02/10/20 Allergies Allergy/AdvReac Type Severity Reaction Status Date / Time No Known Drug Allergies Allergy Verified 05/15/20 13:56 Review of Systems Review of Systems Narrative: Remainder of complete review of systems is otherwise unremarkable except for that included in the HPI. Patient History Medical History COVID-19 virus infection Neuropathy Surgical History No significant past surgical history Family History Father Renal disease Kidney failure Mother Heart disease ND (myocardial infarction) Social History household members: spouse and children Smoking Status: Former smoker Smoking Status: Former smoker alcohol intake frequency: 0-2 drinks per day Substance Use Type: marijuana Exam Narrative Exam Narrative: General: Healthy appearing, in no acute distress. Able to give a complete and coherent history. Well-nourished well-developed HEENT: Moist mucous membranes, normal sclera with reactive pupils, bilateral funduscopic exam is unremarkable. Visual acuity is 20/40 on the right eye 20/50 in the left eye Neck: No JVD, supple Respiratory: Lungs are clear to auscultation, no wheezing no rales no rhonchi. Full and symmetrical air movement Cardiac: Regular rate and rhythm no murmurs no bruits Abdomen: Soft, obese, nontender, good bowel tones, no flank pain Skin: Warm and dry, no rashes Neurologic: Grossly neurologically intact with no obvious asymmetries or abnormalities. No clear visual field deficits on specific testing Extremities: No trauma, well perfused Psych: Cooperative, appropriate insight and affect Initial Vital Signs Initial Vital Signs: Vital Signs Pulse Rate 69 08/24/20 17:55 Pulse Oximetry 99 08/24/20 17:55 Course Orders Ordered: ED Orders 08/24/20 18:04 EKG-12 Lead Stat 08/24/20 18:10 Complete Blood Count AUTO DIFF Stat Comprehensive Metabolic Panel Stat Magnesium Stat Troponin I Stat 08/24/20 18:16 CT head/brain wo con Stat XR chest 1V Stat 08/24/20 20:13 Troponin I Stat 08/24/20 22:51 EKG-12 Lead Stat Sodium Chloride (Normal Saline 0.9%) 1,000 mls @ 150 mls/hr IV CONT AUGUSTO Last Infusion: 08/24/20 21:20 Dose: 0 mls/hr Documented by: [email or web address] Admin: 08/24/20 18:31 Dose: 150 mls/hr Documented by: [email or web address] Vital Signs Vital signs: Vital Signs - 8 hr 08/24/20 17:55 08/24/20 17:59 08/24/20 18:00 Temperature 97.4 F L Pulse Rate 69 67 71 Respiratory Rate 22 25 H Blood Pressure 143/91 H Pulse Oximetry 99 98 99 08/24/20 18:01 08/24/20 18:30 08/24/20 20:10 Temperature Pulse Rate 69 77 80 Respiratory Rate 20 22 Blood Pressure 136/96 H 141/86 H Pulse Oximetry 99 99 97 08/24/20 20:12 08/24/20 20:30 08/24/20 21:00 Temperature Pulse Rate 79 72 71 Respiratory Rate 24 19 24 Blood Pressure 145/89 H 138/102 H 147/80 H Pulse Oximetry 99 99 98 Medical Decision Making Medical Records Medical records reviewed: Yes I reviewed the patient's medical records. Lab Data Lab results reviewed: Yes I reviewed the patient's lab results. Result diagrams: 08/24/20 18:10 08/24/20 18:10 Labs: Lab Results 08/24/20 08/24/20 08/24/20 Range/Units 18:10 18:10 20:13 WBC 7.8 (4.5-11.0) X10^3/uL RBC 5.53 (4.5-5.9) X10^6/uL Hgb 17.0 (13.5-17.5) g/dL Hct 48.8 (41-53) % MCV 88.3 (80-100) fL MCH 30.8 (26-34) PG MCHC 34.8 (30-36) % RDW 13.6 (11.6-14.8) % Plt Count 194 (150-400) X10^3/uL Neut % (Auto) 47.1 L (50-75) % Lymph % (Auto) 37.7 (25-40) % Morton % (Auto) 11.7 (3-14) % Eos % (Auto) 2.8 (2-4) % Baso % (Auto) 0.7 (0-2) % Neut # (Auto) 3700 (2457-0928) /uL Lymph # (Auto) 2900 (9620-0207) /uL Morton # (Auto) 900 (0-900) /uL Eos # (Auto) 200 (0-450) /uL Baso # (Auto) 100 (0-100) /uL Sodium 140 (137-145) mmol/L Potassium 4.0 (3.4-5.1) mmol/L Chloride 104 (98-107) mmol/L Carbon Dioxide 28 (22-32) mmol/L BUN 18 (9-20) mg/dL Creatinine 1.04 (0.66-1.25) mg/dL Estimated GFR > 60.0 (>60) mL/min BUN/Creatinine Ratio 17.3 (6-22) Glucose 113 H (70-100) mg/dL Calcium 9.4 (8.4-10.2) mg/dL Magnesium 2.1 (1.6-2.3) mg/dL Total Bilirubin 1.1 (0.2-1.3) mg/dL AST 41 (17-59) IU/L ALT 70 H (<50) IU/L Alkaline Phosphatase 74 (38-126) U/L Troponin I 0.091 H 0.089 H (0.01-0.034) ng/mL Total Protein 8.3 H (6.3-8.2) g/dL Albumin 4.6 (3.5-5.0) g/dL Globulin 3.7 (1.7-4.1) g/dL Albumin/Globulin Ratio 1.2 (1.0-2.8) Imaging Data Chest x-ray: Radiologist's Impression: FINDINGS: Surgical changes and devices: None. Lungs and pleura: Lungs are clear. No pleural effusions or pneumothorax. Mediastinum: Mediastinal contours appear normal. Heart size is normal. Bones and chest wall: No suspicious bony lesions. Overlying soft tissues appear unremarkable. IMPRESSION: No acute cardiopulmonary abnormality. Dictated by: Dony Seals M.D. on 08/24/2020 at 19:28 CT scan - head: Radiologist's Impression: FINDINGS: Image quality: Excellent. CSF spaces: Basal cisterns are patent. No extra-axial fluid collections. Ventricles are normal in size and shape. Brain: No midline shift. No intracranial masses or hemorrhage. Johns-white matter interface is normal. Skull and face: Calvarium and visualized facial bones are intact, without suspicious lesions. Sinuses: Visualized sinuses and mastoids are clear. IMPRESSION: No acute intracranial abnormality. Dictated by: Dony Seals M.D. on 08/24/2020 at 19:18 ECG Data Attestation: I personally reviewed and interpreted this ECG as follows: Interpretation: Sinus rhythm at a rate of 74 Normal intervals, normal axis No acute ischemic changes Similar to prior EKGs MDM Narrative Medical decision making narrative: 45-year-old gentleman presents with 2 weeks of fatigue and vision changes. CT scan of the brain is unremarkable. Labs are reassuring with the exception of troponin which is slightly elevated but not increasing. EKGs are unremarkable in do not suggest acute coronary syndrome. Given his recent COVID episode and elevated troponin with that and extended period of tachycardia I am wondering if the troponins are continuing to be related to prior COVID episodes and if perhaps he is developing a postviral cardiomyopathy. Chest x-ray at this point is unremarkable does not show significant cardiac dilation and no evidence of congestive heart failure. I believe the next step in the workup would be an outpatient echocardiogram regarding this. With the vision change, again there were no abnormalities on the CT scan. I believe follow-up with ophthalmology would be the next step and see if they recommend MRI for further diagnostic purposes. Findings are all reviewed with patient and his . Questions are answered. He is safe for home discharge He will be following up with a new primary care physician that the [facility]. He will be given a copy of this ER no with all of the lab work done today as well as actual copies of his EKGs obtained today. He is safe for home discharge Discharge Plan Departure Patient Disposition: Home Clinical Impression: Elevated troponin, Alteration in vision Instructions: DI for Cardiomyopathy Activity Restrictions/Additional Instructions: Thank you for coming in today Your workup was actually fairly reassuring. I did not find any evidence of stroke, masses or tumors in your brain. With the vision changes that your having I would recommend follow-up with an claims associate and see if they recommend any further imaging such as MRIs. Regarding the overall weakness I am somewhat concerned about your heart. There have been scattered reports about post COVID cardiomyopathy issues. Your heart enzymes are slightly elevated (but not increasing the way that we would see if you are having a heart attack). The heart shape and size looks normal on your chest x-ray in the remainder of your chest x-ray also is reassuring we normal. The EKGs do not show any evidence of heart attack. I believe the next step in your workup regarding this is an outpatient echocardiogram. You will need to discuss this with your new primary care physician. I will give you a copy of the ER note from shayy which includes all of the lab work done, the imaging studies and copies of the actual EKGs. Please give this to your primary care physician with your 1st appointment. The of worsening symptoms or new findings that are concerning, please return to the ER and I am happy to re-evaluate Prescriptions: No Action nortriptyline 25 mg Capsule 25 mg PO BEDTIME RF: 0
--- NOTE | 2020-08-24 18:16 | DI.CT.S_ITS ---
PROCEDURE: CT HEAD/BRAIN WO CON INDICATIONS: weakness X 2weeks, visual deficit R side TECHNIQUE: Noncontrast 4.5 mm thick angled axial sections acquired from the foramen magnum to the vertex, with coronal and sagittal reformats. For radiation dose reduction, the following was used: automated exposure control, adjustment of mA and/or kV according to patient size. COMPARISON: None. FINDINGS: Image quality: Excellent. CSF spaces: Basal cisterns are patent. No extra-axial fluid collections. Ventricles are normal in size and shape. Brain: No midline shift. No intracranial masses or hemorrhage. Johns-white matter interface is normal. Skull and face: Calvarium and visualized facial bones are intact, without suspicious lesions. Sinuses: Visualized sinuses and mastoids are clear. IMPRESSION: No acute intracranial abnormality. Dictated by: Dony Seals M.D. on 08/24/2020 at 19:18 Approved by: Dony Seals M.D. on 08/24/2020 at 19:20
--- NOTE | 2020-08-24 18:16 | DI.RAD.S_ITS ---
PROCEDURE: XR CHEST 1V INDICATIONS: palpitations TECHNIQUE: One view of the chest was acquired. COMPARISON: [facility], CR, XR CHEST 1V, 06/24/2020, 21:40. FINDINGS: Surgical changes and devices: None. Lungs and pleura: Lungs are clear. No pleural effusions or pneumothorax. Mediastinum: Mediastinal contours appear normal. Heart size is normal. Bones and chest wall: No suspicious bony lesions. Overlying soft tissues appear unremarkable. IMPRESSION: No acute cardiopulmonary abnormality. Dictated by: Dony Seals M.D. on 08/24/2020 at 19:28 Approved by: Dony Seals M.D. on 08/24/2020 at 19:29
[2020-08-24 18:24] LABS: Add Manual Diff / Slide Review NO; Basophils Absolute Auto 100 /uL (0-100); Basophils Percent Auto 0.7 % (0-2); Eosinophils Absolute Auto 200 /uL (0-450); Eosinophils Percent Auto 2.8 % (2-4); Hematocrit 48.8 % (41-53); Lymphocytes Absolute Auto 2900 /uL (1100-4500); Lymphocytes Percent Auto 37.7 % (25-40); Mean Corpuscular HGB Conc 34.8 % (30-36); Mean Corpuscular Hemoglobin 30.8 PG (26-34); Mean Corpuscular Volume 88.3 fL (80-100); Monocytes Absolute Auto 900 /uL (0-900); Monocytes Percent Auto 11.7 % (3-14); Neutrophils Absolute Auto 3700 /uL (1500-7000); Neutrophils Percent Auto 47.1 % (50-75); Platelet Count 194 X10^3/uL (150-400); Red Blood Cell Count 5.53 X10^6/uL (4.5-5.9); Red Cell Distribution Width 13.6 % (11.6-14.8); White Blood Cell Count 7.8 X10^3/uL (4.5-11.0)
[2020-08-24] MEDS: SODIUM CHLORIDE 0.9% 1,000 ML 150 ML IV (18:31)
[2020-08-24 18:37] LABS: Alanine Aminotransferase 70 IU/L (<50); Albumin 4.6 g/dL (3.5-5.0); Albumin Globulin Ratio 1.2 (1.0-2.8); Alkaline Phosphatase 74 U/L (38-126); Aspartate Aminotransferase 41 IU/L (17-59); BUN Creatinine Ratio 17.3 (6-22); Bilirubin Total 1.1 mg/dL (0.2-1.3); Blood Urea Nitrogen 18 mg/dL (9-20); Calcium 9.4 mg/dL (8.4-10.2); Carbon Dioxide 28 mmol/L (22-32); Chloride 104 mmol/L (98-107); Estimated Glomerular Filt Rate > 60.0 mL/min (>60); Globulin 3.7 g/dL (1.7-4.1); Glucose 113 mg/dL (70-100); HEMOLYSIS 30 (0-50); Magnesium 2.1 mg/dL (1.6-2.3); Sodium 140 mmol/L (137-145); Total Protein 8.3 g/dL (6.3-8.2)
[2020-08-24 18:48] LABS: Troponin I 0.091 ng/mL (0.01-0.034)
[2020-08-24 20:45] LABS: Troponin I 0.089 ng/mL (0.01-0.034)
== END 2020-08-24 23:36 | disposition home or self-care (01) ==
PROVIDERS: Emergency Provider Emergency Medicine
DX: H54.7 Unspecified visual loss (principal); R77.8 Other specified abnormalities of plasma proteins; R00.2 Palpitations; Z86.16 Personal history of COVID-19
CPT/HCPCS: 36415; 70450; 71045; 80053; 83735; 84484; 85025; 93005; 96360; 96361; 99284

== ENCOUNTER 2020-09-05 20:11 | Observation (INO) | payer OTHER, MEDICAID, SELFPAY ==
[2020-02-10 17:25] VITALS: BMI 36.5
[2020-09-05] VITALS (10 sets, daily range): BP systolic 99–150; BP diastolic 56–95; PULSE 64–104; RESP 16–36; TEMP 36.6; O2SAT 94–99; BMI 35.4
--- NOTE | 2020-09-05 20:12 | DI.CT.S_ITS ---
PROCEDURE: CT ABDOMEN PELVIS W CON INDICATIONS: GI bleed, recent colon biopsy TECHNIQUE: After the administration of intravenous contrast, axial sections acquired from the lung bases to the pubic symphysis. Coronal and sagittal reformats were performed. For radiation dose reduction, the following was used: automated exposure control, adjustment of mA and/or kV according to patient size. COMPARISON: [facility], CT, CT ABDOMEN PELVIS WITH CONTRAST, 01/23/2020, 1:55. FINDINGS: Image quality: Excellent. Lung bases: Lung bases are clear. Heart: No significant findings. ABDOMEN: Liver: Diffuse hepatic steatosis.. Gallbladder: Unremarkable. Biliary ducts: Nondilated. Pancreas: No peripancreatic inflammation. No peripancreatic fluid collections. Homogeneous enhancement. Spleen: Unremarkable. Adrenal Glands: No adrenal nodules or adrenal hyperplasia. Kidneys and Ureters: Stable right upper pole renal cyst. No hydronephrosis. Bilateral ureters are normal in course and caliber. Stomach and Bowel: Stomach, small bowel loops, and colon are unremarkable. Scattered colonic diverticula without acute inflammation. Status post appendectomy. Peritoneum: No abnormal intraperitoneal fluid. No free air. Ventral Wall: No hernia. Abdominal Nodes: No retroperitoneal or mesenteric adenopathy by size criteria. Vessels: Aorta and inferior vena cava are normal in size. PELVIS: Pelvic Organs: Unremarkable. Bladder: Unremarkable. Pelvic Nodes: No enlarged lymph nodes. Miscellaneous: Small fat containing inguinal hernias. Bones: Acute compression fractures. No suspicious osseous lesions. IMPRESSION: 1. CT abdomen and pelvis without acute abnormalities. 2. Diffuse hepatic steatosis. 3. Mild scattered colonic diverticulosis without acute inflammatory changes. Dictated by: Gregorio Ibarra M.D. on 09/05/2020 at 22:13 Approved by: Gregorio Ibarra M.D. on 09/05/2020 at 22:19
--- NOTE | 2020-09-05 20:15 | ED.GIBLEED ---
HPI - GI Bleed General Chief complaint: GI Bleed Stated complaint: 2 hrs BR BPR Time Seen by Provider: 09/05/20 20:11 Source: patient and EMS Mode of arrival: EMS Limitations: no limitations History of Present Illness HPI Narrative: 45-year-old male presents by EMS for evaluation of abdominal pain and a large amount of bright red bleeding per rectum for the past 2-1/2 hours. He had been in his normal state of health when the symptoms started at which point he called EMS. He has had no fever or chills. He denies any dizziness, weakness or lightheadedness. He does not take any blood thinners. On August 27 he had polyps removed at [facility]. He is otherwise well and free of complaint MD complaint: gross hematochezia Onset (ago): hour(s) Pain Consistency: constant Severity: moderate Relieving factors: none Exacerbating factors: none Associated symptoms: abdominal pain Treatments Prior to Arrival: none Related Data Home Medications Medication Instructions Recorded Confirmed nortriptyline 50 mg PO BEDTIME 09/06/20 09/06/20 omeprazole 20 mg PO DAILY 09/06/20 09/06/20 Allergies Allergy/AdvReac Type Severity Reaction Status Date / Time No Known Drug Allergies Allergy Verified 05/15/20 13:56 Review of Systems Constitutional Constitutional: Denies chills, Denies fatigue, Denies fever(s), Denies frequent falls, Denies lethargy and Denies weakness Eyes Eyes: Denies change in vision, Denies eye discharge, Denies irritation and Denies loss of vision ENT Ears, Nose, Mouth, and Throat: Denies change in voice, Denies dizziness, Denies neck pain, Denies sore throat and Denies throat swelling Cardiovascular Cardiovascular: Denies chest pain, Denies irregular heart rhythm, Denies lightheadedness, Denies palpitations, Denies dyspnea, Denies dyspnea on exertion and Denies orthopnea Respiratory Respiratory: Denies cough, Denies dyspnea, Denies dyspnea on exertion and Denies wheezing Gastrointestinal Gastrointestinal: Reports abdominal pain, Reports hematochezia, Denies change in bowel habits, Denies diarrhea, Denies nausea and Denies vomiting Musculoskeletal Musculoskeletal: Denies neck pain and Denies numbness Integumentary/Breasts Skin/Breast: Denies pruritus, Denies erythema, Denies rash and Denies wounds Neurologic Neurologic: Denies behavioral changes, Denies confusion, Denies dizziness, Denies frequent falls, Denies loss of vision, Denies numbness and Denies weakness Psychiatric Psychiatric: Denies anxiety, Denies behavioral changes, Denies confusion, Denies depression, Denies homicidal ideation and Denies suicidal ideation Endocrine Endocrine: Denies fatigue, Denies flushing and Denies palpitations Hematologic/Lymphatic Hematologic/Lymphatic: Denies easy bruising Allergic/Immunologic Allergic/Immunologic: Denies urticaria, Denies throat swelling and Denies wheezing Patient History Medical History COVID-19 virus infection Neuropathy Surgical History No significant past surgical history Family History Father Renal disease Kidney failure Mother Heart disease [place] (myocardial infarction) Social History household members: spouse and children Smoking Status: Former smoker Smoking Status: Former smoker alcohol intake frequency: 0-2 drinks per day Substance Use Type: marijuana Exam Narrative Exam Narrative: GENERAL: [45] year old patient appears stated age. Well-developed patient, in mild distress. HEAD: Atraumatic. Normocephalic. EYES: Pupils equal round and reactive. Extraocular motions intact. No scleral icterus. No injection or drainage. ENT: Nose without bleeding, purulent drainage. Throat without erythema, tonsillar hypertrophy or exudate. Airway patent. NECK: Trachea midline. Non tender CARDIOVASCULAR: Regular rate and rhythm without murmurs, gallops, or rubs. RESPIRATORY: Clear to auscultation. Breath sounds equal bilaterally. No wheezes, rales, or rhonchi. GASTROINTESTINAL: Abdomen soft, generalized tenderness, nondistended. Bowel sounds present in all 4 quadrants RECTAL: minimal external blood. Digital rectal exam notes fresh bright red blood, no clots, EXTREMITIES: No edema or joint tenderness. BACK: Nontender without deformity or crepitance. No flank tenderness. NEURO: AOx3. SKIN: No rash or erythema of visible areas Initial Vital Signs Initial Vital Signs: Vital Signs Temperature 97.8 F 09/05/20 20:20 Pulse Rate 82 09/05/20 20:20 Respiratory Rate 16 09/05/20 20:20 Blood Pressure 150/95 H 09/05/20 20:20 Pulse Oximetry 99 09/05/20 20:20 Course Orders Ordered: ED Orders 09/05/20 20:12 CT abdomen pelvis w con Stat 09/05/20 20:26 Complete Blood Count AUTO DIFF Stat Comprehensive Metabolic Panel Stat Type and Screen Stat 09/05/20 20:35 COVID19 - ADMIT (HIDES AND SKINS COLORER swab/PCR) Stat 09/05/20 22:20 Hemoglobin and Hematocrit Stat 09/06/20 05:00 Hematocrit Stat Hemoglobin Stat Sodium Chloride (Normal Saline 0.9%) 1,000 mls @ 125 mls/hr IV CONT AUGUSTO Last Infusion: 09/06/20 01:30 Dose: 0 mls/hr Documented by: Admin: 09/06/20 01:05 Dose: 125 mls/hr Documented by: GREG Sodium Chloride (Normal Saline 0.9%) 1,000 mls @ 1,000 mls/hr IV BOLUS PRN PRN Reason: Fluid replacement Last Infusion: 09/06/20 02:30 Dose: 0 mls/hr Documented by: Admin: 09/06/20 01:30 Dose: 1,000 mls/hr Documented by: GREG Discontinued Medications Sodium Chloride (Normal Saline 0.9%) 1,000 mls @ 1,000 mls/hr IV BOLUS ONE Stop: 09/06/20 00:20 Last Infusion: 09/06/20 00:14 Dose: 0 mls/hr Documented by: Admin: 09/05/20 23:27 Dose: 1,000 mls/hr Documented by: CRUZITO Tranexamic Acid 1,000 mg/ (Sodium Chloride) 100 mls @ 200 mls/hr IV INTRA-OP ONE Stop: 09/06/20 02:17 Reevaluation(s) Reevaluation #1: patient able to ambulate to and from the bathroom without difficulty. Consultations Consultation #1: call to Dr. Granger (GI at [facility]) to discuss. Requests transfer for admission, trend H/H, and likely re-scope [facility] has no beds. Consultation #2: Dr. Gaona happy to accept Vital Signs Vital signs: Vital Signs - 8 hr 09/05/20 20:20 09/05/20 21:11 09/05/20 21:48 Temperature 97.8 F Pulse Rate 82 64 102 H Respiratory Rate 16 18 Blood Pressure 150/95 H 121/64 Pulse Oximetry 99 97 98 09/05/20 22:00 09/05/20 22:01 09/05/20 22:30 Temperature Pulse Rate 102 H 102 H 104 H Respiratory Rate 26 H 26 H 20 Blood Pressure 143/93 H Pulse Oximetry 95 96 98 09/05/20 22:31 09/05/20 23:00 09/05/20 23:28 Temperature Pulse Rate 104 H 103 H 104 H Respiratory Rate 20 36 H 23 Blood Pressure 110/73 104/62 105/63 Pulse Oximetry 97 96 97 09/05/20 23:30 09/06/20 00:00 Temperature Pulse Rate 102 H 100 H Respiratory Rate 18 17 Blood Pressure 99/56 L 91/56 L Pulse Oximetry 94 96 MDM - GI Bleed Lab Data Result diagrams: 09/06/20 01:40 09/05/20 20:26 Labs: Lab Results 09/05/20 09/05/20 09/05/20 Range/Units 20:26 20:26 20:26 WBC 9.1 (4.5-11.0) X10^3/uL RBC 4.58 (4.5-5.9) X10^6/uL Hgb 13.8 (13.5-17.5) g/dL Hct 40.9 L (41-53) % MCV 89.3 (80-100) fL MCH 30.3 (26-34) PG MCHC 33.9 (30-36) % RDW 13.4 (11.6-14.8) % Plt Count 212 (150-400) X10^3/uL Neut % (Auto) 60.4 (50-75) % Lymph % (Auto) 28.7 (25-40) % [place] % (Auto) 8.8 (3-14) % Eos % (Auto) 1.7 L (2-4) % Baso % (Auto) 0.4 (0-2) % Neut # (Auto) 5500 (3550-1821) /uL Lymph # (Auto) 2600 (2443-1474) /uL [place] # (Auto) 800 (0-900) /uL Eos # (Auto) 200 (0-450) /uL Baso # (Auto) 0 (0-100) /uL Sodium 137 (137-145) mmol/L Potassium 3.8 (3.4-5.1) mmol/L Chloride 106 (98-107) mmol/L Carbon Dioxide 26 (22-32) mmol/L BUN 17 (9-20) mg/dL Creatinine 1.06 (0.66-1.25) mg/dL Estimated GFR > 60.0 (>60) mL/min BUN/Creatinine Ratio 16.0 (6-22) Glucose 186 H (70-100) mg/dL Calcium 8.6 (8.4-10.2) mg/dL Total Bilirubin 0.8 (0.2-1.3) mg/dL AST 38 (17-59) IU/L ALT 58 H (<50) IU/L Alkaline Phosphatase 62 (38-126) U/L Total Protein 6.6 (6.3-8.2) g/dL Albumin 3.7 (3.5-5.0) g/dL Globulin 2.9 (1.7-4.1) g/dL Albumin/Globulin Ratio 1.3 (1.0-2.8) SARS-CoV-2 (PCR) (Negative) Blood Type A Negative Antibody Screen Negative Crossmatch See Detail 09/05/20 09/05/20 Range/Units 20:35 22:20 WBC (4.5-11.0) X10^3/uL RBC (4.5-5.9) X10^6/uL Hgb 13.7 (13.5-17.5) g/dL Hct 39.4 L (41-53) % MCV (80-100) fL MCH (26-34) PG MCHC (30-36) % RDW (11.6-14.8) % Plt Count (150-400) X10^3/uL Neut % (Auto) (50-75) % Lymph % (Auto) (25-40) % [place] % (Auto) (3-14) % Eos % (Auto) (2-4) % Baso % (Auto) (0-2) % Neut # (Auto) (3061-0993) /uL Lymph # (Auto) (7987-6843) /uL [place] # (Auto) (0-900) /uL Eos # (Auto) (0-450) /uL Baso # (Auto) (0-100) /uL Sodium (137-145) mmol/L Potassium (3.4-5.1) mmol/L Chloride (98-107) mmol/L Carbon Dioxide (22-32) mmol/L BUN (9-20) mg/dL Creatinine (0.66-1.25) mg/dL Estimated GFR (>60) mL/min BUN/Creatinine Ratio (6-22) Glucose (70-100) mg/dL Calcium (8.4-10.2) mg/dL Total Bilirubin (0.2-1.3) mg/dL AST (17-59) IU/L ALT (<50) IU/L Alkaline Phosphatase (38-126) U/L Total Protein (6.3-8.2) g/dL Albumin (3.5-5.0) g/dL Globulin (1.7-4.1) g/dL Albumin/Globulin Ratio (1.0-2.8) SARS-CoV-2 (PCR) Negative (Negative) Blood Type Antibody Screen Crossmatch Imaging Data CT scan - abdomen/pelvis: Radiologist's Impression: [address] [id number] Scan ReportSigned Patient: Jonatan Brice R#: [id number]: 1975Acct:[id number]/Sex: 45 / MDate of Service: 09/05/20Loc: EDAccession Number: [id number] Procedure: CT abdomen pelvis w con Ordering Provider: Richmond Villalobos D.O. PROCEDURE: CT ABDOMEN PELVIS W CON INDICATIONS: GI bleed, recent colon biopsy TECHNIQUE: After the administration of intravenous contrast, axial sections acquired from the lung bases to the pubic symphysis. Coronal and sagittal reformats were performed. For radiation dose reduction, the following was used: automated exposure control, adjustment of mA and/or kV according to patient size. COMPARISON: [facility], CT, CT ABDOMEN PELVIS WITH CONTRAST, 01/23/2020, 1:55. FINDINGS: Image quality: Excellent. Lung bases: Lung bases are clear. Heart: No significant findings. ABDOMEN: Liver: Diffuse hepatic steatosis.. Gallbladder: Unremarkable. Biliary ducts: Nondilated. Pancreas: No peripancreatic inflammation. No peripancreatic fluid collections. Homogeneous enhancement. Spleen: Unremarkable. Adrenal Glands: No adrenal nodules or adrenal hyperplasia. Kidneys and Ureters: Stable right upper pole renal cyst. No hydronephrosis. Bilateral ureters are normal in course and caliber. Stomach and Bowel: Stomach, small bowel loops, and colon are unremarkable. Scattered colonic diverticula without acute inflammation. Status post appendectomy. Peritoneum: No abnormal intraperitoneal fluid. No free air. Ventral Wall: No hernia. Abdominal Nodes: No retroperitoneal or mesenteric adenopathy by size criteria. Vessels: Aorta and inferior vena cava are normal in size. PELVIS: Pelvic Organs: Unremarkable. Bladder: Unremarkable. Pelvic Nodes: No enlarged lymph nodes. Miscellaneous: Small fat containing inguinal hernias. Bones: Acute compression fractures. No suspicious osseous lesions. IMPRESSION: 1. CT abdomen and pelvis without acute abnormalities. 2. Diffuse hepatic steatosis. 3. Mild scattered colonic diverticulosis without acute inflammatory changes. Dictated by: Gregorio Ibarra M.D. on 09/05/2020 at 22:13 Approved by: Gregorio Ibarra M.D. on 09/05/2020 at 22:19 Discharge Plan Departure Patient Disposition: Admitted as Observation Clinical Impression: Acute GI bleeding, GI bleed Admit Date/Time: 09/06/20 00:09 Admit Provider: Mari Gaona
[2020-09-05 20:42] LABS: Add Manual Diff / Slide Review NO; Basophils Absolute Auto 0 /uL (0-100); Basophils Percent Auto 0.4 % (0-2); Eosinophils Absolute Auto 200 /uL (0-450); Eosinophils Percent Auto 1.7 % (2-4); Hematocrit 40.9 % (41-53); Hemoglobin 13.8 g/dL (13.5-17.5); Lymphocytes Absolute Auto 2600 /uL (1100-4500); Lymphocytes Percent Auto 28.7 % (25-40); Mean Corpuscular HGB Conc 33.9 % (30-36); Mean Corpuscular Hemoglobin 30.3 PG (26-34); Mean Corpuscular Volume 89.3 fL (80-100); Monocytes Absolute Auto 800 /uL (0-900); Monocytes Percent Auto 8.8 % (3-14); Neutrophils Absolute Auto 5500 /uL (1500-7000); Neutrophils Percent Auto 60.4 % (50-75); Platelet Count 212 X10^3/uL (150-400); Red Blood Cell Count 4.58 X10^6/uL (4.5-5.9); Red Cell Distribution Width 13.4 % (11.6-14.8); White Blood Cell Count 9.1 X10^3/uL (4.5-11.0)
[2020-09-05 20:57] LABS: Alanine Aminotransferase 58 IU/L (<50); Albumin 3.7 g/dL (3.5-5.0); Albumin Globulin Ratio 1.3 (1.0-2.8); Alkaline Phosphatase 62 U/L (38-126); Aspartate Aminotransferase 38 IU/L (17-59); Bilirubin Total 0.8 mg/dL (0.2-1.3); Blood Urea Nitrogen 17 mg/dL (9-20); Calcium 8.6 mg/dL (8.4-10.2); Carbon Dioxide 26 mmol/L (22-32); Chloride 106 mmol/L (98-107); Estimated Glomerular Filt Rate > 60.0 mL/min (>60); Globulin 2.9 g/dL (1.7-4.1); Glucose 186 mg/dL (70-100); HEMOLYSIS < 15 (0-50); Potassium 3.8 mmol/L (3.4-5.1); Sodium 137 mmol/L (137-145); Total Protein 6.6 g/dL (6.3-8.2)
[2020-09-05 21:41] LABS: COVID19 - ADMIT (NP swab/PCR) Negative (Negative)
[2020-09-05 22:30] LABS: Hematocrit 39.4 % (41-53); Hemoglobin 13.7 g/dL (13.5-17.5)
[2020-09-05] MEDS: SODIUM CHLORIDE 0.9% 1,000 ML 1000 ML IV (23:27)
[2020-09-06] VITALS (11 sets, daily range): BP systolic 91–127; BP diastolic 56–85; PULSE 86–117; RESP 12–24; TEMP 36.3–36.8; O2SAT 95–97; BMI 34.9
[2020-09-06] MEDS: SODIUM CHLORIDE 0.9% 1,000 ML 125 ML IV (01:05)
[2020-09-06] MEDS: SODIUM CHLORIDE 0.9% 1,000 ML 1000 ML IV (01:30)
[2020-09-06 01:49] LABS: Hematocrit 33.4 % (41-53); Hemoglobin 11.6 g/dL (13.5-17.5)
--- NOTE | 2020-09-06 01:52 | PC.NURSE ---
Pt. admitted to room 212, diagnosed with GI bleed. Was up to the BR. while in the BR he C/O dizziness, pale & clammy. Had a bloody stool large amount. Then got up to BSC this time he had 200 cc of bloody stool C/O dizziness again , B/P dropped to 99/67 HR up to 114. Dr. Gaona notified see orders. Will monitor.
--- NOTE | 2020-09-06 02:59 | PC.NURSE ---
Ist unit of PRBC transfusing. NO sign & symptoms of any transfusion reactions. Pt. will be transfer to room 222, will report to Bonnie PABON.
--- NOTE | 2020-09-06 03:18 | P.CONS_ITS ---
History of Present Illness Consult details Chief complaint: 2 hrs BR BPR Reason for consult: Acute Lower GI Bleed - acute blood loss/transfusion and facilitate transfer Requesting provider: Mari Gaona Narrative: Patient is a 45-year-old male who presented to the ED by EMS for evaluation of abdominal pain and a large amount of bright red bleeding per rectum for the past 2-1/2 hours. The patient's reports that he had a total of 8 bloody bowel movements prior to the ED. He had been in his normal state of health when the symptoms started at approximately 4:00 p.m. at which point he called EMS. On August 27 he had polyps removed at [facility]. Patient had a bright red bloody bowel movement in the ED at which point he was admitted by Dr. Gaona for acute lower GI bleed. Once the patient came to the floor he got up to use the restroom and had approximately over 500 cc of bright red bloody stool. At which point the patient became diaphoretic, lightheaded, and dizzy, slightly tachycardic, tachypneic and hypotensive. Dr. Gaona was notified at which point she was advised that we only had 4 units of blood available for the patient in house and the patient would be requiring transfer to another facility. Dr. Gaona graciously requested that we consult regarding his acute GI Bleeding/transfusion needs and help facilitate transfer to another facility. Patient is currently resting in bed, his dizziness, lightheadedness, weakness, and cold sweats have resolved. Patient's vital signs have improved temp 98.1?, BP 113/68, pulse 97, RR 20, with an O2 saturation of 95% on room air. Patient denies any cardiac, pulmonary, hematologic history. Patient has a history only of neuropathy of which he takes nortriptyline. He denies fever, chills, chest pain, shortness of breath, or changes in vision. He does not take any blood thinners. He is otherwise well and free of complaint. Patient's labs drawn after the 500 cc blood loss or predominantly unremarkable, hemoglobin 11.6 hematocrit 33.4 likely falsely elevated due to fluid bolus. Glucose was 186 without the diagnosis of diabetes. Abdominal CT showed diffuse hepatic steatosis, with mild scattered colonic diverticulosis without acute inflammation changes. Meds Home Medications and Allergies Home Medications Medication Instructions Recorded Confirmed Type nortriptyline 50 mg PO BEDTIME 09/06/20 09/06/20 History omeprazole 20 mg PO DAILY 09/06/20 09/06/20 History Allergies Allergy/AdvReac Type Severity Reaction Status Date / Time No Known Drug Allergies Allergy Verified 05/15/20 13:56 Review of Systems Review of Systems ROS: Yes All systems reviewed with the patient and are negative except as otherwise documented Constitutional Constitutional: Reports fatigue and Reports weakness Gastrointestinal Gastrointestinal: Reports hematochezia, Reports change in stool character and Reports loose stools Neurologic Neurologic: Reports weakness Endocrine Endocrine: Reports fatigue Exam Vital Signs (past 8 hours): - 09/05/20 20:20 09/05/20 21:11 09/05/20 21:48 Temperature 97.8 F Pulse Rate 82 64 102 H Respiratory Rate 16 18 Blood Pressure 150/95 H 121/64 Pulse Oximetry 99 97 98 09/05/20 22:00 09/05/20 22:01 09/05/20 22:30 Temperature Pulse Rate 102 H 102 H 104 H Respiratory Rate 26 H 26 H 20 Blood Pressure 143/93 H Pulse Oximetry 95 96 98 09/05/20 22:31 09/05/20 23:00 09/05/20 23:28 Temperature Pulse Rate 104 H 103 H 104 H Respiratory Rate 20 36 H 23 Blood Pressure 110/73 104/62 105/63 Pulse Oximetry 97 96 97 09/05/20 23:30 09/06/20 00:00 09/06/20 00:13 Temperature 98.3 F Pulse Rate 102 H 100 H 117 H Respiratory Rate 18 17 16 Blood Pressure 99/56 L 91/56 L 94/69 Pulse Oximetry 94 96 95 09/06/20 00:27 09/06/20 01:04 09/06/20 01:24 Temperature 97.4 F L Pulse Rate 109 H 102 H 102 H Respiratory Rate 16 12 16 Blood Pressure 126/82 118/75 99/67 Pulse Oximetry 97 96 95 09/06/20 02:20 09/06/20 02:39 Temperature 97.6 F 98.1 F Pulse Rate 92 H 97 H Respiratory Rate 15 20 Blood Pressure 126/65 113/68 Pulse Oximetry Oxygen Delivery Method Room Air Oxygen Flow Rate 0 Narrative Exam Narrative: General: Patient is a well-developed, well-nourished male in no acute distress at this time. HEENT: Normocephalic, atraumatic, extraocular muscles intact, oral pharynx is clear and mucous membranes are dry. Neck is supple and symmetric, trachea is midline, no adenopathy, no thyroid enlargement, nontender, no masses palpated. Negative for JVD Chest: Normal AP diameter and contour without kyphoscoliosis, no nasal flaring, retractions, or tachypneic labored Lungs: Auscultation of all lung [place] are clear without adventitious sounds, wheezes, rhonchi, or rales. Cardio: S1 & S2 with regular rate and rhythm without murmur, rubs, or gallops, no carotid bruit, no cardiac pulsations present. Abdomen: Soft mildly tender, negative for organomegaly, or masses. Bowel sounds are hyperactive present in all 4 quadrants, no CVA tenderness. Musculoskeletal: Muscle strength and tone are equal within normal limits, no deformity, crepitus, effusions, cyanosis, clubbing or edema present. Full range of motion intact radial and pedal pulses are normal. Skin: cool to touch, pale, dry and intact without rashes, ulcerations or petechiae. Neuro: Alert and orientated x3, strength is +5/5 in all extremities, sensation to touch intact, no gross deficits noted of cranial nerves. Psych: Patient has a well-kept appearance, appropriate affect, mental status attitude thought context and judgment are appropriate for age. Objective Labs Result Diagrams: 09/06/20 01:40 09/05/20 20:26 Labs: Laboratory Results - last 24 hr 09/05/20 09/05/20 09/05/20 20:26 20:26 20:26 WBC 9.1 RBC 4.58 Hgb 13.8 Hct 40.9 L MCV 89.3 MCH 30.3 MCHC 33.9 RDW 13.4 Plt Count 212 Neut % (Auto) 60.4 Lymph % (Auto) 28.7 [place] % (Auto) 8.8 Eos % (Auto) 1.7 L Baso % (Auto) 0.4 Neut # (Auto) 5500 Lymph # (Auto) 2600 [place] # (Auto) 800 Eos # (Auto) 200 Baso # (Auto) 0 Sodium 137 Potassium 3.8 Chloride 106 Carbon Dioxide 26 BUN 17 Creatinine 1.06 Estimated GFR > 60.0 BUN/Creatinine Ratio 16.0 Glucose 186 H Calcium 8.6 Total Bilirubin 0.8 AST 38 ALT 58 H Alkaline Phosphatase 62 Total Protein 6.6 Albumin 3.7 Globulin 2.9 Albumin/Globulin Ratio 1.3 SARS-CoV-2 (PCR) Blood Type A Negative Antibody Screen Negative Crossmatch See Detail 09/05/20 09/05/20 09/06/20 20:35 22:20 01:40 WBC RBC Hgb 13.7 11.6 L Hct 39.4 L 33.4 L MCV MCH MCHC RDW Plt Count Neut % (Auto) Lymph % (Auto) [place] % (Auto) Eos % (Auto) Baso % (Auto) Neut # (Auto) Lymph # (Auto) [place] # (Auto) Eos # (Auto) Baso # (Auto) Sodium Potassium Chloride Carbon Dioxide BUN Creatinine Estimated GFR BUN/Creatinine Ratio Glucose Calcium Total Bilirubin AST ALT Alkaline Phosphatase Total Protein Albumin Globulin Albumin/Globulin Ratio SARS-CoV-2 (PCR) Negative Blood Type Antibody Screen Crossmatch Assessment & Plan Assessment & Plan narrative: 1. Acute lower GI bleed, acute, present on admi ssion -as evidence by observed bright red rectal blood loss >500cc upon admit to the floor, with diaphoresis, weakness, dizziness resulting in hypotension 91/56, mild tachycardia HR 117, RR 16. -fluid bolus, secondary IV started -type and cross and repeat H&H hemoglobin 11.6, hematocrit 33.4, MCV, RDW, platelet count was all within normal limits. H&H likely falsely elevated due to fluid bolus. Patient's chemistries were unremarkable, COVID PCR negative, blood type A negative. -abdominal/Pelvis CT with contrast demonstrated diffuse hepatic steatosis and mild scattered colonic diverticulosis without acute inflammation all changes. -NPO -patient on telemetry, vital signs Q 10 minutes during TXA & blood infusion- until transfer Patient was quickly stabilized with fluid bolus and transfusion of 1st unit of blood and infusion bolus of tranexamic acid 1 g over 30 minutes, followed by 1 g over 8 hour infusion. Patient continues to be afebrile, BP is improved 127/74, pulse 93, RR 22, O2 saturation 95% on room air. Patient is no longer diaphoretic or symptomatic, and is resting comfortably in bed without complaint at this time. -consult with a Dr. Gaona approximately 1:30 a.m. requesting consult for acute GI bleed and blood transfusion and also to assist in facilitate transfer to secondary hospital due to lack of blood products apply. -[address] Kim hospitalist at [facility] discussed the case with Dr. Kim he agreed to accept patient and requested that patient be transported by ground as long as he remains stable and to transport him with all available blood products that had not been infused. -patient to be transferred to [facility] at approximately 5:45 a.m. via ground transport ALS 2. Peripheral neuropathy, chronic, stable -patient with history of peripheral neuropathy of the forefoot not in evidence on exam today. -neuropathy likely a result of diabetes with the patient with last hemoglobin A1c is 6.1. (01/2020) -Holding home regimen of nortriptyline 25 mg at bedtime. 5. Obesity with a BMI of 36.5, chronic, stable. -obesity increases the risk for diabetes and the patient is found to have an elevated hemoglobin A1c at 6 1.(01/2020) -the patient is also place of further risk for cardiovascular disease with his mother having cardiac disease and myocardial infarction. -recommend dietitian consult. VTE/DVT prophylaxis: Contraindicated IV fluid: Normal saline Code status: Full code, Surrogate decision maker: Patient's . COVID PCR: Negative
[2020-09-06] MEDS: TRANEXAMIC ACID 1,000 MG in SODIUM CHLORIDE 0.9% 100 ML 200 ML IV (03:59)
--- NOTE | 2020-09-06 05:05 | PM.DS.1 ---
History of Present Illness History of Present Illness Date Patient Seen: 09/06/20 Time Patient Seen: 05:05 Chief complaint: 2 hrs BR BPR Narrative: Patient is a 45-year-old male who presented to the ED by EMS for evaluation of abdominal pain and a large amount of bright red bleeding per rectum for the past 2-1/2 hours. The patient's reports that he had a total of 8 bloody bowel movements prior to the ED. He had been in his normal state of health when the symptoms started at approximately 4:00 p.m. at which point he called EMS. On August 27 he had polyps removed at [facility]. Patient had a bright red bloody bowel movement in the ED at which point he was admitted by Dr. Gaona for acute lower GI bleed. Once the patient came to the floor he got up to use the restroom and had approximately over 500 cc of bright red bloody stool. At which point the patient became diaphoretic, lightheaded, and dizzy, slightly tachycardic, tachypneic and hypotensive. Dr. Gaona was notified at which point she was advised that we only had 4 units of blood available for the patient in house and the patient would be requiring transfer to another facility. Dr. Gaona graciously requested that we consult regarding his acute GI Bleeding/transfusion needs and help facilitate transfer to another facility. Patient is currently resting in bed, his dizziness, lightheadedness, weakness, and cold sweats have resolved. Patient's vital signs have improved temp 98.1?, BP 113/68, pulse 97, RR 20, with an O2 saturation of 95% on room air. Patient denies any cardiac, pulmonary, hematologic history. Patient has a history only of neuropathy of which he takes nortriptyline. He denies fever, chills, chest pain, shortness of breath, or changes in vision. He does not take any blood thinners. He is otherwise well and free of complaint. Patient's labs drawn after the 500 cc blood loss or predominantly unremarkable, hemoglobin 11.6 hematocrit 33.4 likely falsely elevated due to fluid bolus. Glucose was 186 without the diagnosis of diabetes. Abdominal CT showed diffuse hepatic steatosis, with mild scattered colonic diverticulosis without acute inflammation changes. -Mr. Brice was admitted by Dr. Gaona, the hospitalist service provided consulting. Patient to be transferred by ground to [facility] except by Dr. Kim hospitalist, excepted at 4:20 a.m. this morning. Discharge Providers Provider Date of admission: 09/06/20 00:09 Discharge Date: 09/06/20 Discharge provider: JORDON Silvestre Summary Hospital Course Discharge Diagnosis: 1.Acute lower GI bleed-transfer due to lack of blood products supply. 2. Chronic peripheral neuropathy 3. Obesity Hospital Course: The patient had a colonoscopy with a cecal polyp removal as [facility] on August 27 which was uneventful. At approximately 4:00 p.m. on September 05 the patient began to have bloody diarrhea for a total of 8 bloody bright red stool movements leading to lightheadedness fatigue and dizziness. The patient's then contacted EMS and he was transported to the ED. The patient had an additional bloody bowel movement in the ED but remained stable. He was then admitted to Dr. Gaona general surgeon. When the patient reached the floor he demonstrated bright red rectal blood loss >500cc upon admit to the floor, with diaphoresis, weakness, dizziness resulting in hypotension 91/56, mild tachycardia HR 117, RR 16. He was given a 2nd fluid bolus, secondary IV started, type and cross and repeat H&H hemoglobin 11.6, hematocrit 33.4, MCV, RDW, platelet count was all within normal limits. H&H likely falsely elevated due to fluid bolus. Patient's chemistries were unremarkable, COVID PCR negative, blood type A negative. Patients abdominal/Pelvis CT with contrast demonstrated diffuse hepatic steatosis and mild scattered colonic diverticulosis without acute inflammation all changes. Dr. Gaona contacted the hospitalist service at approximately 1:30 a.m. requesting consult for acute GI bleed/ blood transfusion and also to assist in facilitation of transfer to secondary hospital due to lack of blood products supply. Patient was placed on telemetry, vital signs Q 10 minutes during TXA & blood infusion initiation. Patient was quickly stabilized with fluid bolus and transfusion of 1st unit of blood and infusion bolus of tranexamic acid 1 g over 30 minutes, followed by 1 g over 8 hour infusion. Patient continues to be afebrile, BP is improved 127/74, pulse 93, RR 22, O2 saturation 95% on room air. Patient is no longer diaphoretic or symptomatic, and is resting comfortably in bed without complaint at this time. -[address] Kim hospitalist at [facility] discussed the case with Dr. Kim he agreed to accept patient and requested that patient be transported by ground as long as he remains stable and to transport him with all available blood products that had not been transfuse. -patient scheduled to be transferred to [facility] at approximately 5:45 a.m. via ground transport ALS Status at Discharge Cognitive/behavioral status at discharge: oriented Functional status at discharge: bed bound (Due to bleeding risk, hypotension, hypovolemia, fall. ) Overall status at discharge: other (Patient is being transferred to [facility] due to [facility] is a lack of blood products supply. ) Time Spent with Patient Time spent: Greater than 30 minutes Exam Vital Signs (past 8 hours): - 09/05/20 21:11 09/05/20 21:48 09/05/20 22:00 Temperature Pulse Rate 64 102 H 102 H Respiratory Rate 18 26 H Blood Pressure 121/64 Pulse Oximetry 97 98 95 09/05/20 22:01 09/05/20 22:30 09/05/20 22:31 Temperature Pulse Rate 102 H 104 H 104 H Respiratory Rate 26 H 20 20 Blood Pressure 143/93 H 110/73 Pulse Oximetry 96 98 97 09/05/20 23:00 09/05/20 23:28 09/05/20 23:30 Temperature Pulse Rate 103 H 104 H 102 H Respiratory Rate 36 H 23 18 Blood Pressure 104/62 105/63 99/56 L Pulse Oximetry 96 97 94 09/06/20 00:00 09/06/20 00:13 09/06/20 00:27 Temperature 98.3 F 97.4 F L Pulse Rate 100 H 117 H 109 H Respiratory Rate 17 16 16 Blood Pressure 91/56 L 94/69 126/82 Pulse Oximetry 96 95 97 09/06/20 01:04 09/06/20 01:24 09/06/20 02:20 Temperature 97.6 F Pulse Rate 102 H 102 H 92 H Respiratory Rate 12 16 15 Blood Pressure 118/75 99/67 126/65 Pulse Oximetry 96 95 09/06/20 02:39 09/06/20 04:09 09/06/20 05:00 Temperature 98.1 F 97.7 F 97.7 F Pulse Rate 97 H 93 H 94 H Respiratory Rate 20 22 20 Blood Pressure 113/68 127/74 120/85 Pulse Oximetry Oxygen Delivery Method Room Air Oxygen Flow Rate 0 Narrative Exam Narrative: General: Patient is a well-developed, well-nourished male in no acute distress at this time. HEENT: Normocephalic, atraumatic, extraocular muscles intact, oral pharynx is clear and mucous membranes are dry. Neck is supple and symmetric, trachea is midline, no adenopathy, no thyroid enlargement, nontender, no masses palpated. Negative for JVD Chest: Normal AP diameter and contour without kyphoscoliosis, no nasal flaring, retractions, or tachypneic labored Lungs: Auscultation of all lung [place] are clear without adventitious sounds, wheezes, rhonchi, or rales. Cardio: S1 & S2 with regular rate and rhythm without murmur, rubs, or gallops, no carotid bruit, no cardiac pulsations present. Abdomen: Soft mildly tender, negative for organomegaly, or masses. Bowel sounds are hyperactive present in all 4 quadrants, no CVA tenderness. Musculoskeletal: Muscle strength and tone are equal within normal limits, no deformity, crepitus, effusions, cyanosis, clubbing or edema present. Full range of motion intact radial and pedal pulses are normal. Skin: cool to touch, pale, dry and intact without rashes, ulcerations or petechiae. Neuro: Alert and orientated x3, strength is +5/5 in all extremities, sensation to touch intact, no gross deficits noted of cranial nerves. Psych: Patient has a well-kept appearance, appropriate affect, mental status attitude thought context and judgment are appropriate for age. Objective Labs Result Diagrams: 09/06/20 01:40 09/05/20 20:26 Labs: Laboratory Results - last 24 hr 09/05/20 09/05/20 09/05/20 20:26 20:26 20:26 WBC 9.1 RBC 4.58 Hgb 13.8 Hct 40.9 L MCV 89.3 MCH 30.3 MCHC 33.9 RDW 13.4 Plt Count 212 Neut % (Auto) 60.4 Lymph % (Auto) 28.7 [place] % (Auto) 8.8 Eos % (Auto) 1.7 L Baso % (Auto) 0.4 Neut # (Auto) 5500 Lymph # (Auto) 2600 [place] # (Auto) 800 Eos # (Auto) 200 Baso # (Auto) 0 Sodium 137 Potassium 3.8 Chloride 106 Carbon Dioxide 26 BUN 17 Creatinine 1.06 Estimated GFR > 60.0 BUN/Creatinine Ratio 16.0 Glucose 186 H Calcium 8.6 Total Bilirubin 0.8 AST 38 ALT 58 H Alkaline Phosphatase 62 Total Protein 6.6 Albumin 3.7 Globulin 2.9 Albumin/Globulin Ratio 1.3 SARS-CoV-2 (PCR) Blood Type A Negative Antibody Screen Negative Crossmatch See Detail 09/05/20 09/05/20 09/06/20 20:35 22:20 01:40 WBC RBC Hgb 13.7 11.6 L Hct 39.4 L 33.4 L MCV MCH MCHC RDW Plt Count Neut % (Auto) Lymph % (Auto) [place] % (Auto) Eos % (Auto) Baso % (Auto) Neut # (Auto) Lymph # (Auto) [place] # (Auto) Eos # (Auto) Baso # (Auto) Sodium Potassium Chloride Carbon Dioxide BUN Creatinine Estimated GFR BUN/Creatinine Ratio Glucose Calcium Total Bilirubin AST ALT Alkaline Phosphatase Total Protein Albumin Globulin Albumin/Globulin Ratio SARS-CoV-2 (PCR) Negative Blood Type Antibody Screen Crossmatch [facility] Medical History COVID-19 virus infection Neuropathy Surgical History No significant past surgical history Family History Father Renal disease Kidney failure Mother Heart disease [place] (myocardial infarction) Social History household members: spouse and children Smoking Status: Former smoker Discharge Assessment & Plan Assessment and Plan Assessment: 1. Acute lower GI bleed, acute, present on admission -as evidence by observed bright red rectal blood loss >500cc upon admit to the floor, with diaphoresis, weakness, dizziness resulting in hypotension 91/56, mild tachycardia HR 117, RR 16. -fluid bolus, secondary IV started -type and cross and repeat H&H hemoglobin 11.6, hematocrit 33.4, MCV, RDW, platelet count was all within normal limits. H&H likely falsely elevated due to fluid bolus. Patient's chemistries were unremarkable, COVID PCR negative, blood type A negative. -abdominal/Pelvis CT with contrast demonstrated diffuse hepatic steatosis and mild scattered colonic diverticulosis without acute inflammation all changes. -consult with a Dr. Gaona approximately 1:30 a.m. requesting consult for acute GI bleed and blood transfusion and also to assist in facilitate transfer to secondary hospital due to lack of blood products apply. -NPO -patient on telemetry, vital signs Q 10 minutes during TXA & blood infusion-until transfer Patient was quickly stabilized with fluid bolus and transfusion of 1st unit of blood and infusion bolus of tranexamic acid 1 g over 30 minutes, followed by 1 g over 8 hour infusion. Patient continues to be afebrile, BP is improved 127/74, pulse 93, RR 22, O2 saturation 95% on room air. Patient is no longer diaphoretic or symptomatic, and is resting comfortably in bed without complaint at this time. -[address] Kim hospitalist at [facility] discussed the case with Dr. Kim he agreed to accept patient and requested that patient be transported by ground as long as he remains stable and to transport him with all available blood products that had not been infused. -patient to be transferred to [facility] at approximately 5:45 a.m. via ground transport ALS. Patient required acute hospital transfer due to acute lower GI bleed with lack of [facility] blood product supply (4units only). 2. Peripheral neuropathy, chronic, stable -patient with history of peripheral neuropathy of the forefoot not in evidence on exam today. -neuropathy likely a result of diabetes with the patient with last hemoglobin A1c is 6.1. (01/2020) -Holding home regimen of nortriptyline 25 mg at bedtime. 5. Obesity with a BMI of 36.5, chronic, stable. -obesity increases the risk for diabetes and the patient is found to have an elevated hemoglobin A1c at 6 1.(01/2020) -the patient is also place of further risk for cardiovascular disease with his mother having cardiac disease and myocardial infarction. -recommend dietitian consult. VTE/DVT prophylaxis: Contraindicated IV fluid: Normal saline Code status: Full code, Surrogate decision maker: Patient's . COVID PCR: Negative Discharge Plan Discharge Plan Patient Disposition: [facility] Other facility: [facility] Under care of provider: Dr. Kim hospitalist Provider Discharge Comment: Patient is currently hemodynamically stable, asymptomatic, receiving blood product and TXA infusion. No active blood loss is observed at this time. Discharge orders & Medications Medication counseling provided by Pharmacist: No Discharge Health Status Multidrug resistant organism: No MDRO Diet/Activity/Treatments Diet: Nothing by Mouth Discharge Data Attending Provider: Mari Gaona VTE Deep Vein Thrombosis/Pulmonary Embolism Present on Admission: No
[2020-09-06 05:17] LABS: Hematocrit 35.9 % (41-53); Hemoglobin 12.3 g/dL (13.5-17.5)
[2020-09-06] MEDS: TRANEXAMIC ACID 1,000 MG in SODIUM CHLORIDE 0.9% 100 ML 12.5 ML IV (05:35)
--- NOTE | 2020-09-06 06:33 | PC.NURSE ---
Note-Patient transferred to room 222 after admit to room 212, drowsy but oriented x4. Then orders received that patient would be transferred to [facility]. He received 2 units PRBCs, tolerated well, Tranexamic bolus given, followed by infusion rate of 12.5ml/hr over 8hrs as ordered. No bloody stools, VSS. Report called to Krys at [facility], patient left building at 0625 with EMT, took all belongings with her.
--- NOTE | 2020-09-18 11:50 | PC.NURSE ---
Late Entry; Tranexamic infusion initiated at 0535, was infusing at time of transport, discharged to [facility] [place] 0633.
== END 2020-09-06 06:25 | disposition short-term general hospital (02) ==
LOC: ED 21:57 → AC 09-06 00:10
PROVIDERS: Admitting Provider Surgery; Emergency Provider Emergency Medicine; Referring Provider Emergency Medicine; Visit Provider Surgery
DX: K62.5 Hemorrhage of anus and rectum (principal); R10.9 Unspecified abdominal pain; G62.9 Polyneuropathy, unspecified; E66.9 Obesity, unspecified; Z20.822 Contact with and (suspected) exposure to COVID-19; Z68.36 Body mass index [BMI] 36.0-36.9, adult
CPT/HCPCS: 36415; 36430; 74177; 80053; 85014; 85018; 85025; 86850; 86900; 86901; 87635; 96361; 96365; 96366; 99284; C9803; G0378; P9016; Q9967

== ENCOUNTER 2022-03-04 09:51 | Emergency (ER) | payer OTHER, MEDICAID, SELFPAY ==
[2020-09-06 00:20] VITALS: BMI 34.9
[2022-03-04 10:01] VITALS: BP 139/86; PULSE 106; RESP 15; TEMP 36.4; O2SAT 97; BMI 35.4
[2022-03-04 10:28] LABS: Add Manual Diff / Slide Review NO; Basophils Absolute Auto 0 /uL (0-100); Basophils Percent Auto 0.5 % (0-2); Eosinophils Absolute Auto 200 /uL (0-450); Eosinophils Percent Auto 2.2 % (2-4); Hematocrit 47.5 % (41-53); Hemoglobin 16.8 g/dL (13.5-17.5); Lymphocytes Absolute Auto 3100 /uL (1100-4500); Lymphocytes Percent Auto 39.6 % (25-40); Mean Corpuscular HGB Conc 35.3 % (30-36); Mean Corpuscular Hemoglobin 31.1 PG (26-34); Monocytes Absolute Auto 500 /uL (0-900); Neutrophils Absolute Auto 3900 /uL (1500-7000); Neutrophils Percent Auto 50.7 % (50-75); Platelet Count 217 X10^3/uL (150-400); Red Cell Distribution Width 13.9 % (11.6-14.8); White Blood Cell Count 7.8 X10^3/uL (4.5-11.0)
[2022-03-04 11:04] LABS: Alanine Aminotransferase 39 IU/L (<50); Albumin 4.2 g/dL (3.5-5.0); Albumin Globulin Ratio 1.2 (1.0-2.8); Alkaline Phosphatase 73 U/L (38-126); Aspartate Aminotransferase 33 IU/L (17-59); BUN Creatinine Ratio 17.4 (6-22); Bilirubin Total 1.1 mg/dL (0.2-1.3); Blood Urea Nitrogen 15 mg/dL (9-20); Calcium 8.9 mg/dL (8.4-10.2); Carbon Dioxide 25 mmol/L (22-32); Chloride 105 mmol/L (98-107); Estimated Glomerular Filt Rate > 60 mL/min (>60); Globulin 3.6 g/dL (1.7-4.1); Glucose 156 mg/dL (70-100); HEMOLYSIS 21 (0-50); Lipase 158 U/L (23-300); Sodium 139 mmol/L (137-145); Total Protein 7.8 g/dL (6.3-8.2)
--- NOTE | 2022-03-04 11:55 | DI.US.S_ITS ---
PROCEDURE: US ABDOMEN LIMITED INDICATIONS: abdominal pain TECHNIQUE: Real-time scanning was performed of the abdominal and retroperitoneal organs, with image documentation. COMPARISON: None. FINDINGS: This is a markedly limited study due to patient body habitus. Liver: The liver measures 16.6 cm in length and demonstrates increased echogenicity throughout. Gallbladder: The gallbladder wall measures 1.5 mm in diameter where visualized. No stones, sludge, pericholecystic fluid, or sonographic Roe sign. Biliary ducts: Intrahepatic bile ducts are non-dilated. Extrahepatic bile duct caliber measures 5 mm. Normal is 6-7 mm or less in diameter, or 10 mm or less post-cholecystectomy. Pancreas: The pancreas is not visualized. IMPRESSION: 1. Markedly limited study given patient body habitus. 2. Increased hepatic echogenicity noted likely related to fatty infiltration of the liver but other sources of hepatocellular disease cannot be excluded. 3. No cholelithiasis or findings to suggest choledocholithiasis or acute cholecystitis. Dictated by: Mari Bishop M.D. on 03/04/2022 at 12:58 Approved by: Mari Bishop M.D. on 03/04/2022 at 12:59
[2022-03-04 12:23] VITALS: BP 134/86; PULSE 97; TEMP 36.6; O2SAT 98
--- NOTE | 2022-03-04 13:02 | ED.ABDPAIN ---
HPI - Abdominal Pain General Chief Complaint: Abdominal Pain Stated Complaint: abd pain right side x7 days Time Seen by Provider: 03/04/22 10:08 Source: patient Mode of arrival: Ambulatory History of Present Illness HPI narrative: 46-year-old male former smoker with history of reflux presents with a chief complaint of about 1 week of right-sided flank pain. He states it comes and goes usually without any obvious provocation or palliation. He states it radiates around his flanks somewhat. He denies any trauma or injury and has no abnormal rash. He is had no fever or chills and denies any change in medications or diet. He is not dizzy nor weak or lightheaded. Denies runny nose, sore throat or cough. He is had chest pain or shortness of breath. He denies diarrhea or constipation. He denies dysuria, frequency or urgency Related Data Home Medications Medication Instructions Recorded Confirmed nortriptyline 50 mg capsule 50 mg PO BEDTIME 09/06/20 09/06/20 omeprazole 20 mg PO DAILY 09/06/20 09/06/20 Allergies Allergy/AdvReac Type Severity Reaction Status Date / Time No Known Drug Allergies Allergy Verified 03/04/22 10:01 Review of Systems Review of Systems Narrative: GENERAL: Denies chills, fatigue, malaise, fever, sweats. HEENT: Denies sinus pain, ear pain, sore throat, difficulty swallowing, dizziness. RESPIRATORY: Denies dyspnea, cough, wheezing, hemoptysis, sputum. CARDIOVASCULAR: Denies chest pain, palpitations, orthopnea, edema, GASTROINTESTINAL: See HPI : Denies dysuria, frequency, incontinence, hematuria, urinary retention. MUSCULOSKELETAL: denies weakness, joint pain, or bony pain SKIN: Denies rash, skin lesions, or other NEUROLOGIC: Denies weakness, headache, numbness, change in speech, confusion, seizures, incoordination. PSYCHIATRIC: No concerning psychosocial issues. 12 point review of systems is negative except for those stated above Patient History Medical History COVID-19 virus infection Neuropathy Surgical History No significant past surgical history Family History Father Renal disease Kidney failure Mother Heart disease [place] (myocardial infarction) Social History household members: spouse and children Smoking Status: Former smoker Smoking Status: Former smoker alcohol intake frequency: 3 or more drinks per day Substance Use Type: marijuana Exam Narrative Exam Narrative: GENERAL: [46] year old patient appears stated age. Well-developed patient, in mild distress. HEAD: Atraumatic. Normocephalic. EYES: Pupils equal round and reactive. Extraocular motions intact. No scleral icterus. No injection or drainage. ENT: Nose without bleeding, purulent drainage. Throat without erythema, tonsillar hypertrophy or exudate. Airway patent. NECK: Trachea midline. Non tender CARDIOVASCULAR: Regular rate and rhythm without murmurs, gallops, or rubs. RESPIRATORY: Clear to auscultation. Breath sounds equal bilaterally. No wheezes, rales, or rhonchi. GASTROINTESTINAL: Abdomen soft, non-tender, nondistended. EXTREMITIES: No edema or joint tenderness. BACK: Nontender without deformity or crepitance. No flank tenderness. NEURO: AOx3. SKIN: No rash or erythema of visible areas Initial Vital Signs Initial Vital Signs: Vital Signs Temperature 97.5 F L 03/04/22 10:01 Pulse Rate 106 H 03/04/22 10:01 Respiratory Rate 15 03/04/22 10:01 Blood Pressure 139/86 03/04/22 10:01 Pulse Oximetry 97 03/04/22 10:01 Oxygen Delivery Method 03/04/22 10:01 Course Orders Ordered: ED Orders 03/04/22 10:04 Complete Blood Count AUTO DIFF Stat Comprehensive Metabolic Panel Stat Lipase Stat EKG-12 Lead Stat 03/04/22 11:55 US abdomen limited Stat 03/04/22 14:44 CT abdomen pelvis w con Stat Vital Signs Vital signs: Vital Signs - 8 hr 03/04/22 10:01 03/04/22 12:23 Temperature 97.5 F L 97.8 F Pulse Rate 106 H 97 H Respiratory Rate 15 Blood Pressure 139/86 134/86 Pulse Oximetry 97 98 Oxygen Delivery Method Room Air Room Air MDM - Abdominal Pain Lab Data Result diagrams: 03/04/22 10:04 03/04/22 10:04 Labs: Lab Results 03/04/22 03/04/22 Range/Units 10:04 10:04 WBC 7.8 (4.5-11.0) X10^3/uL RBC 5.40 (4.5-5.9) X10^6/uL Hgb 16.8 (13.5-17.5) g/dL Hct 47.5 (41-53) % MCV 88.0 (80-100) fL MCH 31.1 (26-34) PG MCHC 35.3 (30-36) % RDW 13.9 (11.6-14.8) % Plt Count 217 (150-400) X10^3/uL Neut % (Auto) 50.7 (50-75) % Lymph % (Auto) 39.6 (25-40) % Pepin % (Auto) 7.0 (3-14) % Eos % (Auto) 2.2 (2-4) % Baso % (Auto) 0.5 (0-2) % Neut # (Auto) 3900 (4407-2016) /uL Lymph # (Auto) 3100 (3187-1753) /uL Pepin # (Auto) 500 (0-900) /uL Eos # (Auto) 200 (0-450) /uL Baso # (Auto) 0 (0-100) /uL Sodium 139 (137-145) mmol/L Potassium 4.0 (3.4-5.1) mmol/L Chloride 105 (98-107) mmol/L Carbon Dioxide 25 (22-32) mmol/L BUN 15 (9-20) mg/dL Creatinine 0.86 (0.66-1.25) mg/dL Estimated GFR > 60 (>60) mL/min BUN/Creatinine Ratio 17.4 (6-22) Glucose 156 H (70-100) mg/dL Calcium 8.9 (8.4-10.2) mg/dL Total Bilirubin 1.1 (0.2-1.3) mg/dL AST 33 (17-59) IU/L ALT 39 (<50) IU/L Alkaline Phosphatase 73 (38-126) U/L Total Protein 7.8 (6.3-8.2) g/dL Albumin 4.2 (3.5-5.0) g/dL Globulin 3.6 (1.7-4.1) g/dL Albumin/Globulin Ratio 1.2 (1.0-2.8) Lipase 158 (23-300) U/L Point of care testing: Urine Dip Bedside Urine Glucose Negative Bedside Urine Bilirubin - Negative Bedside Urine Ketone - Negative Urine Specific [place] 1.030 Bedside Urine Occult Blood - Negative Bedside Urine pH 6.0 Bedside Urine Protein - Negative Bedside Urine Urobilinogen - Negative Bedside Urine Nitrite - Negative Bedside Urine Leukocytes - Negative Esterase Imaging Data US - abdomen: Radiologist's Impression: [address] [address] Ultrasound Report Signed Patient: Jonatan Brice MR#: [id number] : 1975 Acct:[id number] Age/Sex: 46 / M Date of Service: 03/04/22 Loc: ED Accession Number: [id number] ?? Procedure: US abdomen limited Ordering Provider: Richmond Villalobos D.O. PROCEDURE:? US ABDOMEN LIMITED ? INDICATIONS:? abdominal pain ? TECHNIQUE:? Real-time scanning was performed of the abdominal and retroperitoneal organs, with image documentation.? ? COMPARISON:? None. ? FINDINGS:? This is a markedly limited study due to patient body habitus. ? Liver:? The liver measures 16.6 cm in length and demonstrates increased echogenicity throughout. ? Gallbladder:? The gallbladder wall measures 1.5 mm in diameter where visualized. No stones, sludge, pericholecystic fluid, or sonographic Roe sign. ? ? Biliary ducts:? Intrahepatic bile ducts are non-dilated.? Extrahepatic bile duct caliber measures 5 mm.? Normal is 6-7 mm or less in diameter, or 10 mm or less post-cholecystectomy.? ? Pancreas:? The pancreas is not visualized. ? ? ? IMPRESSION:? ? 1. Markedly limited study given patient body habitus. ? 2. Increased hepatic echogenicity noted likely related to fatty infiltration of the liver but other sources of hepatocellular disease cannot be excluded.? ? 3. No cholelithiasis or findings to suggest choledocholithiasis or acute cholecystitis. ? ? ? Dictated by: Mari Bishop M.D. on 03/04/2022 at 12:58 ? ? Approved by: Mari Bishop M.D. on 03/04/2022 at 12:59 ? CT scan - abdomen/pelvis: Radiologist's Impression: [address] [address] [address] Scan Report Signed Patient: Jonatan Brice MR#: [id number] : 1975 Acct:[id number] Age/Sex: 46 / M Date of Service: 03/04/22 Loc: ED Accession Number: [id number] ?? Procedure: CT abdomen pelvis w con Ordering Provider: Richmond Villalobos D.O. PROCEDURE:? CT ABDOMEN PELVIS W CON ? INDICATIONS:? severe R flank pain ? TECHNIQUE:? After the administration of intravenous contrast, axial sections acquired from the lung bases to the pubic symphysis.? Coronal and sagittal reformats were performed.? For radiation dose reduction, the following was used:? automated exposure control, adjustment of mA and/or kV according to patient size.? ? COMPARISON:? [facility], CT, CT ABDOMEN PELVIS W CON, 09/05/2020, 21:10. ? FINDINGS:? Image quality:? Excellent.? ? Lung bases:? Unremarkable. Heart:? No significant findings. ? ABDOMEN: Liver:? Diffusely hypodense suggesting fatty infiltration. Gallbladder:? Unremarkable.? ? Biliary ducts:? Unremarkable.? ? Pancreas:? Unremarkable.? ? Spleen:? Unremarkable.? ? Adrenal Glands:? Unremarkable.? ? Kidneys and Ureters:? Unremarkable. ? Low-density cyst is present within the upper pole of the right kidney.? ? Stomach and Bowel:? Stomach, small bowel loops, and colon are unremarkable.? The appendix is not visualized; however surgical clips are present in the region of the cecum in the lower quadrant suggesting prior appendectomy. There are scattered sigmoid diverticula. No evidence for diverticulitis. ? Peritoneum:? No abnormal intraperitoneal fluid.? No free air.? ? Ventral Wall: ? No hernias.? Abdominal Nodes:? No retroperitoneal or mesenteric adenopathy by size criteria.? Vessels:? Aorta and inferior vena cava are normal in size.? ? PELVIS: Pelvic Organs:? Unremarkable.? ? Bladder:? Unremarkable.? ? Pelvic Nodes: No enlarged lymph nodes.? Miscellaneous:? There are small bilateral fat containing inguinal hernias. ? Bones:? Unremarkable.? IMPRESSION:? ? 1. No acute intra-abdominal findings.? Specifically, no hydronephrosis, nephrolithiasis, hydroureter, or ureterolithiasis in the setting of flank pain. ? 2. Status post appendectomy. ? 3. Diverticulosis.? No acute diverticulitis. ? 4. Hepatic steatosis.? ? ? Dictated by: Mari Bishop M.D. on 03/04/2022 at 15:55 ? ? Approved by: Mari Bishop M.D. on 03/04/2022 at 15:58 ? MDM Narrative Medical decision making narrative: Multiple etiologies for patient's symptoms considered include, but not limited to: [Bowel obstruction versus kidney stone versus diverticulitis versus other Patient's symptoms improved over duration of stay with above-stated therapies. History, physical exam, labs, imaging, and response to therapies have been reassuring. Findings and discharge diagnosis discussed with patient/family followed by verbalization of understanding Return precautions discussed with patient/family whom verbalize understanding. Pain has been well controlled and patient is tolerating oral hydration. Discharge Plan Departure Patient Disposition: Home Clinical Impression: Abdominal pain Instructions: DI for Abdominal Pain-Adult Activity Restrictions/Additional Instructions: *You have been diagnosed with [abdominal pain] * As we discussed your history and physical exam as well as labs and imaging are very reassuring. There is no evidence of any severe diagnoses that would require a specific or immediate intervention. *What to do: *Please continue to take your regular medications as directed. *Please follow up with your primary care provider in 2-3 days, call for an appointment. Let them know you were seen in the Emergency Department and that we ask that you be seen in follow up. We will electronically transmit a record of today's note if your PCP is in our system *Please consider a clear liquid diet for the next 24-48 hours and then slowly advance to regular as tolerated. Also, try to avoid alcohol, nicotine, caffeine, spicy, acidic or fatty foods as this may worsen your symptoms *If you do not have a primary care provider please contact the [facility] Resource line at [phone]. They will ask some questions about your medical history and help get you set up with a doctor in the community. *Return to Emergency Department if you should have any new, worsening or concerning symptoms, such as [fever greater than 101 F, shaking chills, worsening pain, persistent vomiting or other bothersome symptoms] Prescriptions: No Action nortriptyline 50 mg capsule 50 mg PO BEDTIME omeprazole capsule 20 mg PO DAILY Visit Report Forms: Patient Portal/API
--- NOTE | 2022-03-04 14:44 | DI.CT.S_ITS ---
PROCEDURE: CT ABDOMEN PELVIS W CON INDICATIONS: severe R flank pain TECHNIQUE: After the administration of intravenous contrast, axial sections acquired from the lung bases to the pubic symphysis. Coronal and sagittal reformats were performed. For radiation dose reduction, the following was used: automated exposure control, adjustment of mA and/or kV according to patient size. COMPARISON: [facility], CT, CT ABDOMEN PELVIS W CON, 09/05/2020, 21:10. FINDINGS: Image quality: Excellent. Lung bases: Unremarkable. Heart: No significant findings. ABDOMEN: Liver: Diffusely hypodense suggesting fatty infiltration. Gallbladder: Unremarkable. Biliary ducts: Unremarkable. Pancreas: Unremarkable. Spleen: Unremarkable. Adrenal Glands: Unremarkable. Kidneys and Ureters: Unremarkable. Low-density cyst is present within the upper pole of the right kidney. Stomach and Bowel: Stomach, small bowel loops, and colon are unremarkable. The appendix is not visualized; however surgical clips are present in the region of the cecum in the lower quadrant suggesting prior appendectomy. There are scattered sigmoid diverticula. No evidence for diverticulitis. Peritoneum: No abnormal intraperitoneal fluid. No free air. Ventral Wall: No hernias. Abdominal Nodes: No retroperitoneal or mesenteric adenopathy by size criteria. Vessels: Aorta and inferior vena cava are normal in size. PELVIS: Pelvic Organs: Unremarkable. Bladder: Unremarkable. Pelvic Nodes: No enlarged lymph nodes. Miscellaneous: There are small bilateral fat containing inguinal hernias. Bones: Unremarkable. IMPRESSION: 1. No acute intra-abdominal findings. Specifically, no hydronephrosis, nephrolithiasis, hydroureter, or ureterolithiasis in the setting of flank pain. 2. Status post appendectomy. 3. Diverticulosis. No acute diverticulitis. 4. Hepatic steatosis. Dictated by: Mari Bishop M.D. on 03/04/2022 at 15:55 Approved by: Mari Bishop M.D. on 03/04/2022 at 15:58
[2022-03-04 16:12] VITALS: BP 132/87; PULSE 96; RESP 18; O2SAT 96
== END 2022-03-04 16:18 | disposition home or self-care (01) ==
PROVIDERS: Emergency Provider Emergency Medicine
DX: R10.9 Unspecified abdominal pain (principal)
CPT/HCPCS: 36415; 74177; 76705; 80053; 81003; 83690; 85025; 93005; 93010; 99283; 99284; Q9967

== ENCOUNTER 2022-06-08 20:55 | Observation (INO) | payer OTHER, MEDICAID, SELFPAY ==
[2020-09-06 00:20] VITALS: BMI 34.9
[2022-06-08] VITALS (9 sets, daily range): BP systolic 142–160; BP diastolic 94–103; PULSE 95–101; RESP 18–36; TEMP 36.6; O2SAT 94–98; BMI 34.0
--- NOTE | 2022-06-08 21:11 | DI.RAD.S_ITS ---
PROCEDURE: XR CHEST 1V INDICATIONS: chest pain TECHNIQUE: One view of the chest was acquired. COMPARISON: [facility], CR, XR CHEST 1V, 08/24/2020, 18:56. FINDINGS: Surgical changes and devices: None. Lungs and pleura: Lungs are clear. No pleural effusions or pneumothorax. Mediastinum: Mediastinal contours appear normal. Heart size is normal. Bones and chest wall: No suspicious bony lesions. Overlying soft tissues appear unremarkable. IMPRESSION: 1. No acute cardiopulmonary disease. Dictated by: Gareth Medellin M.D. on 06/08/2022 at 21:56 Approved by: Gareth Medellin M.D. on 06/08/2022 at 21:57
--- NOTE | 2022-06-08 21:16 | ED.CHESTPAIN ---
HPI - Chest Pain General Chief Complaint: Chest Pain Stated Complaint: chest pain Time Seen by Provider: 06/08/22 21:06 Source: patient Mode of arrival: Ambulatory Limitations: no limitations History of Present Illness HPI narrative: 47-year-old male former smoker with history of GERD presents with his in the chief complaint of chest pain and pressure that has been happening off and on without obvious provocation, palliation or radiation for many months. He states tonight it happened when he was laying down and felt like a burning squeezing sensation on the left side of his chest. It had resolved before he got here. He denies any obvious exertional symptoms or exercise fatigue but admits he has not been doing a whole lot for many months because he has been concerned about his episodes of chest pain. He denies associated symptoms and cardiac equivalent such as dizziness, weakness or lightheadedness. He denies any shortness of breath, nausea, vomiting or unexplained diaphoresis. He denies recent travel or injury. He has no history of cancer or blood clot and denies any lower extremity pain or swelling Related Data Home Medications Medication Instructions Recorded Confirmed nortriptyline 50 mg capsule 50 mg PO BEDTIME 09/06/20 09/06/20 omeprazole 20 mg PO DAILY 09/06/20 09/06/20 Allergies Allergy/AdvReac Type Severity Reaction Status Date / Time No Known Drug Allergies Allergy Verified 03/04/22 10:01 Review of Systems Review of Systems Narrative: GENERAL: Denies chills, fatigue, malaise, fever, sweats. HEENT: Denies sinus pain, ear pain, sore throat, difficulty swallowing, dizziness. RESPIRATORY: Denies dyspnea, cough, wheezing, hemoptysis, sputum. CARDIOVASCULAR: See HPI GASTROINTESTINAL: Denies nausea, vomiting, abdominal pain, diarrhea, constipation, melena. : Denies dysuria, frequency, incontinence, hematuria, urinary retention. MUSCULOSKELETAL: denies weakness, joint pain, or bony pain SKIN: Denies rash, skin lesions, or other NEUROLOGIC: Denies weakness, headache, numbness, change in speech, confusion, seizures, incoordination. PSYCHIATRIC: No concerning psychosocial issues. 12 point review of systems is negative except for those stated above Patient History Medical History COVID-19 virus infection Neuropathy Surgical History No significant past surgical history Family History Father Renal disease Kidney failure Mother Heart disease [place] (myocardial infarction) Social History household members: spouse and children Smoking Status: Former smoker Smoking Status: Former smoker alcohol intake frequency: 3 or more drinks per day Substance Use Type: marijuana Exam Narrative Exam Narrative: GENERAL: [47] year old patient appears stated age. Well-developed patient, in mild distress. HEAD: Atraumatic. Normocephalic. EYES: Pupils equal round and reactive. Extraocular motions intact. No scleral icterus. No injection or drainage. ENT: Nose without bleeding, purulent drainage. Throat without erythema, tonsillar hypertrophy or exudate. Airway patent. NECK: Trachea midline. Non tender CARDIOVASCULAR: Regular rate and rhythm without murmurs, gallops, or rubs. RESPIRATORY: Clear to auscultation. Breath sounds equal bilaterally. No wheezes, rales, or rhonchi. GASTROINTESTINAL: Abdomen soft, non-tender, nondistended. EXTREMITIES: No edema or joint tenderness. BACK: Nontender without deformity or crepitance. No flank tenderness. NEURO: AOx3. SKIN: No rash or erythema of visible areas Initial Vital Signs Initial Vital Signs: Vital Signs Temperature 98 F 06/08/22 21:03 Pulse Rate 95 H 06/08/22 21:03 Respiratory Rate 18 06/08/22 21:03 Blood Pressure 160/103 H 06/08/22 21:03 Pulse Oximetry 98 06/08/22 21:03 Oxygen Delivery Method Room Air 06/08/22 21:03 Scores HEART Score Heart Score history: Moderately Suspicious Heart Score EKG: Non-Specific repolarization disturbance Heart Score Age: 45-64 years old Heart Score risk factors: > 3 risk factors or hx of atherosclerotic disease Heart Score troponin: 1-3 times normal limit Heart Score Total: 6 Course Orders Ordered: ED Orders 06/08/22 21:10 CRP [C-Reactive Protein Quant] Stat Complete Blood Count AUTO DIFF Stat Comprehensive Metabolic Panel Stat D Dimer Stat ESR [Erythrocyte Sedimentation Rate] Stat Magnesium Stat PTT Partial Thromboplastin [place] Stat Prothrombin Time INR Stat Troponin & CK Cardiac Panel Stat 06/08/22 21:11 XR chest 1V Stat 06/08/22 21:55 CT angio chest abdomen pelvis Stat 06/08/22 23:59 Troponin & CK Cardiac Panel Stat 06/09/22 00:06 COVID19 -Nasal RAPID Stat Acetaminophen (Acetaminophen 325 Mg Tablet) 650 mg PO Q6H PRN PRN Reason: Fever/Mild Pain (1-3) Aspirin (Aspirin Ec 81 Mg Tablet) 81 mg PO DAILY [place] Atorvastatin Calcium (Atorvastatin 20 Mg Tablet) 80 mg PO BEDTIME [facility] Enoxaparin Sodium (Enoxaparin 40 Mg/0.4 Ml Syringe) 40 mg SUBCUT DAILY [facility] Naloxone HCl (Naloxone 0.4 Mg/Ml Vial) 0.2 mg IV Q2MIN PRN PRN Reason: Opiate Reversal Ondansetron HCl (Ondansetron 4 Mg/2 Ml Inj) 4 mg IV Q8HR PRN PRN Reason: Nausea And Vomiting Discontinued Medications Aspirin (Aspirin 81 Mg Chew Tab) 324 mg PO NOW ONE Stop: 06/08/22 21:12 Last Admin: 06/08/22 21:28 Dose: 324 mg Documented By: AP Vital Signs Vital signs: Vital Signs - 8 hr 06/08/22 21:03 06/08/22 21:17 06/08/22 21:18 Temperature 98 F Pulse Rate 95 H 100 H Respiratory Rate 18 Blood Pressure 160/103 H 154/98 H Pulse Oximetry 98 Oxygen Delivery Method Room Air 06/08/22 21:30 06/08/22 21:30 06/08/22 22:00 Temperature Pulse Rate 100 H Respiratory Rate 22 Blood Pressure 142/94 H 155/102 H Pulse Oximetry 95 Oxygen Delivery Method 06/08/22 22:00 06/08/22 22:30 06/08/22 23:00 Temperature Pulse Rate 99 H 99 H 101 H Respiratory Rate 26 H 26 H 36 H Blood Pressure Pulse Oximetry 95 95 95 Oxygen Delivery Method Room Air 06/08/22 23:30 06/08/22 23:34 06/08/22 23:34 Temperature Pulse Rate 100 H 99 H Respiratory Rate 23 26 H Blood Pressure 145/102 H Pulse Oximetry 94 95 Oxygen Delivery Method Room Air Room Air 06/09/22 00:00 06/09/22 00:00 06/09/22 00:30 Temperature Pulse Rate 94 H Respiratory Rate 24 Blood Pressure 152/95 H 157/96 H Pulse Oximetry Oxygen Delivery Method 06/09/22 00:30 Temperature Pulse Rate 99 H Respiratory Rate 20 Blood Pressure Pulse Oximetry 93 Oxygen Delivery Method Room Air MDM - Chest Pain Lab Data 06/08/22 21:10 06/08/22 21:10 Labs: Lab Results 06/08/22 06/08/22 06/08/22 Range/Units 21:10 21:10 21:10 WBC 9.1 (4.5-11.0) X10^3/uL RBC 5.42 (4.5-5.9) X10^6/uL Hgb 16.8 (13.5-17.5) g/dL Hct 48.0 (41-53) % MCV 88.6 (80-100) fL MCH 31.1 (26-34) PG MCHC 35.1 (30-36) % RDW 13.5 (11.6-14.8) % Plt Count 232 (150-400) X10^3/uL Neut % (Auto) 47.6 L (50-75) % Lymph % (Auto) 41.4 H (25-40) % [place] % (Auto) 7.8 (3-14) % Eos % (Auto) 2.4 (2-4) % Baso % (Auto) 0.8 (0-2) % Neut # (Auto) 4300 (6014-8365) /uL Lymph # (Auto) 3800 (0758-1236) /uL [place] # (Auto) 700 (0-900) /uL Eos # (Auto) 200 (0-450) /uL Baso # (Auto) 100 (0-100) /uL ESR (0-15) MM/HR PT 11.2 (10.1-12.7) SECONDS INR 1.0 (0.9-1.3) APTT 27 (26-36) SECONDS D-Dimer (<500) ng/ml Sodium 137 (137-145) mmol/L Potassium 4.0 (3.4-5.1) mmol/L Chloride 101 (98-107) mmol/L Carbon Dioxide 26 (22-32) mmol/L BUN 15 (9-20) mg/dL Creatinine 1.00 (0.66-1.25) mg/dL Estimated GFR > 60 (>60) mL/min BUN/Creatinine Ratio 15.0 (6-22) Glucose 113 H (70-100) mg/dL Calcium 9.1 (8.4-10.2) mg/dL Magnesium 1.8 (1.6-2.3) mg/dL Total Bilirubin 1.3 (0.2-1.3) mg/dL AST 32 (17-59) IU/L ALT 38 (<50) IU/L Alkaline Phosphatase 96 (38-126) U/L Total Creatine Kinase 121 (55-170) U/L CK-MB (CK-2) 0.55 (<2.37) ng/mL CK-MB (CK-2) Rel Index 0.5 L (1.5-5.0) % Troponin I 0.065 H (0.01-0.034) ng/mL C-Reactive Protein (<1.0) mg/dL Total Protein 8.2 (6.3-8.2) g/dL Albumin 4.4 (3.5-5.0) g/dL Globulin 3.8 (1.7-4.1) g/dL Albumin/Globulin Ratio 1.2 (1.0-2.8) SARS-CoV-2 (PCR) (Negative) 06/08/22 06/08/22 06/08/22 Range/Units 21:10 21:10 21:10 WBC (4.5-11.0) X10^3/uL RBC (4.5-5.9) X10^6/uL Hgb (13.5-17.5) g/dL Hct (41-53) % MCV (80-100) fL MCH (26-34) PG MCHC (30-36) % RDW (11.6-14.8) % Plt Count (150-400) X10^3/uL Neut % (Auto) (50-75) % Lymph % (Auto) (25-40) % [place] % (Auto) (3-14) % Eos % (Auto) (2-4) % Baso % (Auto) (0-2) % Neut # (Auto) (9262-5929) /uL Lymph # (Auto) (3379-9757) /uL [place] # (Auto) (0-900) /uL Eos # (Auto) (0-450) /uL Baso # (Auto) (0-100) /uL ESR 1 (0-15) MM/HR PT (10.1-12.7) SECONDS INR (0.9-1.3) APTT (26-36) SECONDS D-Dimer 389 (<500) ng/ml Sodium (137-145) mmol/L Potassium (3.4-5.1) mmol/L Chloride (98-107) mmol/L Carbon Dioxide (22-32) mmol/L BUN (9-20) mg/dL Creatinine (0.66-1.25) mg/dL Estimated GFR (>60) mL/min BUN/Creatinine Ratio (6-22) Glucose (70-100) mg/dL Calcium (8.4-10.2) mg/dL Magnesium (1.6-2.3) mg/dL Total Bilirubin (0.2-1.3) mg/dL AST (17-59) IU/L ALT (<50) IU/L Alkaline Phosphatase (38-126) U/L Total Creatine Kinase (55-170) U/L CK-MB (CK-2) (<2.37) ng/mL CK-MB (CK-2) Rel Index (1.5-5.0) % Troponin I (0.01-0.034) ng/mL C-Reactive Protein 0.7 (<1.0) mg/dL Total Protein (6.3-8.2) g/dL Albumin (3.5-5.0) g/dL Globulin (1.7-4.1) g/dL Albumin/Globulin Ratio (1.0-2.8) SARS-CoV-2 (PCR) (Negative) 06/08/22 06/08/22 Range/Units 23:30 23:59 WBC (4.5-11.0) X10^3/uL RBC (4.5-5.9) X10^6/uL Hgb (13.5-17.5) g/dL Hct (41-53) % MCV (80-100) fL MCH (26-34) PG MCHC (30-36) % RDW (11.6-14.8) % Plt Count (150-400) X10^3/uL Neut % (Auto) (50-75) % Lymph % (Auto) (25-40) % [place] % (Auto) (3-14) % Eos % (Auto) (2-4) % Baso % (Auto) (0-2) % Neut # (Auto) (2025-5392) /uL Lymph # (Auto) (0824-9018) /uL [place] # (Auto) (0-900) /uL Eos # (Auto) (0-450) /uL Baso # (Auto) (0-100) /uL ESR (0-15) MM/HR PT (10.1-12.7) SECONDS INR (0.9-1.3) APTT (26-36) SECONDS D-Dimer (<500) ng/ml Sodium (137-145) mmol/L Potassium (3.4-5.1) mmol/L Chloride (98-107) mmol/L Carbon Dioxide (22-32) mmol/L BUN (9-20) mg/dL Creatinine (0.66-1.25) mg/dL Estimated GFR (>60) mL/min BUN/Creatinine Ratio (6-22) Glucose (70-100) mg/dL Calcium (8.4-10.2) mg/dL Magnesium (1.6-2.3) mg/dL Total Bilirubin (0.2-1.3) mg/dL AST (17-59) IU/L ALT (<50) IU/L Alkaline Phosphatase (38-126) U/L Total Creatine Kinase 101 (55-170) U/L CK-MB (CK-2) 0.40 (<2.37) ng/mL CK-MB (CK-2) Rel Index 0.4 L (1.5-5.0) % Troponin I 0.062 H (0.01-0.034) ng/mL C-Reactive Protein (<1.0) mg/dL Total Protein (6.3-8.2) g/dL Albumin (3.5-5.0) g/dL Globulin (1.7-4.1) g/dL Albumin/Globulin Ratio (1.0-2.8) SARS-CoV-2 (PCR) Negative (Negative) Imaging Data CT scan - chest: Radiologist's Impression: No AAA or dissection. No airspace consolidation. No PE. MDM Narrative Medical decision making narrative: [47] year old patient presents with chest pain Multiple etiologies for patient's symptoms considered including, but not limited to: [Cardiac ischemia, dissection, pulmonary embolism versus other] Prior Charts reviewed in our EMR Primary Historian: patient Labs reviewed and interpreted by myself: Labs are thankfully by and large reassuring, troponin x2 in the indeterminate range, not largely departed from his baseline. Imaging reviewed: CTA of chest abdomen and pelvis without evidence of dissection, infiltrate, aneurysm or PE Consultations: Discussed with hospitalist Patient with high-risk features and heart score of 6 presents with chest pain and will require hospitalization for further workup including echo and likely stress test Discharge Plan Departure Patient Disposition: Admitted as Observation Clinical Impression: Chest pain Admit Date/Time: 06/09/22 00:36 Admit Provider: Palmer Cheatham
[2022-06-08 21:24] LABS: Add Manual Diff / Slide Review NO; Basophils Absolute Auto 100 /uL (0-100); Basophils Percent Auto 0.8 % (0-2); Eosinophils Absolute Auto 200 /uL (0-450); Eosinophils Percent Auto 2.4 % (2-4); Hemoglobin 16.8 g/dL (13.5-17.5); Lymphocytes Absolute Auto 3800 /uL (1100-4500); Lymphocytes Percent Auto 41.4 % (25-40); Mean Corpuscular HGB Conc 35.1 % (30-36); Mean Corpuscular Hemoglobin 31.1 PG (26-34); Mean Corpuscular Volume 88.6 fL (80-100); Monocytes Absolute Auto 700 /uL (0-900); Monocytes Percent Auto 7.8 % (3-14); Neutrophils Absolute Auto 4300 /uL (1500-7000); Neutrophils Percent Auto 47.6 % (50-75); Platelet Count 232 X10^3/uL (150-400); Red Blood Cell Count 5.42 X10^6/uL (4.5-5.9); Red Cell Distribution Width 13.5 % (11.6-14.8); White Blood Cell Count 9.1 X10^3/uL (4.5-11.0)
[2022-06-08] MEDS: ASPIRIN 81 MG CHEW TAB 324 MG PO (21:28)
[2022-06-08 21:33] LABS: D Dimer 389 ng/ml (<500)
[2022-06-08 21:34] LABS: Alanine Aminotransferase 38 IU/L (<50); Albumin 4.4 g/dL (3.5-5.0); Albumin Globulin Ratio 1.2 (1.0-2.8); Alkaline Phosphatase 96 U/L (38-126); Aspartate Aminotransferase 32 IU/L (17-59); Bilirubin Total 1.3 mg/dL (0.2-1.3); Blood Urea Nitrogen 15 mg/dL (9-20); Calcium 9.1 mg/dL (8.4-10.2); Carbon Dioxide 26 mmol/L (22-32); Chloride 101 mmol/L (98-107); Creatine Kinase 121 U/L (55-170); Estimated Glomerular Filt Rate > 60 mL/min (>60); Globulin 3.8 g/dL (1.7-4.1); Glucose 113 mg/dL (70-100); Magnesium 1.8 mg/dL (1.6-2.3); Sodium 137 mmol/L (137-145); Total Protein 8.2 g/dL (6.3-8.2)
[2022-06-08 21:35] LABS: C-Reactive Protein Quant 0.7 mg/dL (<1.0)
[2022-06-08 21:37] LABS: Prothrombin Time 11.2 SECONDS (10.1-12.7)
[2022-06-08 21:40] LABS: PTT Partial Thromboplastin Tim 27 SECONDS (26-36)
[2022-06-08 21:45] LABS: Troponin I 0.065 ng/mL (0.01-0.034)
--- NOTE | 2022-06-08 21:46 | PC.NURSE ---
Pt with intermittent chest pain for past couple of months. states was told had abnormal ekg yesterday at appt. states tonight pain started in left chest, now resolved. worse with laying on left side.
[2022-06-08 21:49] LABS: CKMB % Relative Index 0.5 % (1.5-5.0); Creatine Kinase MB 0.55 ng/mL (<2.37); HEMOLYSIS 77 (0-50)
[2022-06-08 21:50] LABS: Erythrocyte Sedimentation Rate 1 MM/HR (0-15)
--- NOTE | 2022-06-08 21:55 | DI.CT.S_ITS ---
PROCEDURE: CT ANGIO CHEST ABDOMEN PELVIS INDICATIONS: chest pain, SOB, dissection protocol TECHNIQUE: Precontrast 5 mm thick sections acquired from the lung apices to the iliac crests. After the administration of intravenous contrast, 2.5 mm thick sections again acquired from the lung apices to the iliac crests. Maximum intensity projection (MIP) oblique sagittal and coronal reformats were then acquired. For radiation dose reduction, the following was used: automated exposure control. COMPARISON: [facility], CT, CT ANGIO CHEST PE PROTOCOL, 02/11/2020, 16:47. [facility], CT, CT ABDOMEN PELVIS W CON, 03/04/2022, 15:33. FINDINGS: Image quality: Excellent. AORTA: Noncontrast images demonstrate no evidence of intramural hematoma. The aorta is normal in caliber and contour without intimal flaps to suggest dissection. There is conventional branching of the aortic arch. The visualized great vessels are normal in caliber and appear patent. The celiac, superior mesenteric, and inferior mesenteric arteries are patent. There are single renal arteries bilaterally which also appear patent. The common, external, and internal iliac arteries appear patent. The common femoral and visualized proximal superficial femoral arteries appear patent. CHEST: Lower Neck: No lymphadenopathy by size criteria. Thyroid: Visualized thyroid demonstrates no discrete nodules. Axillae: No lymphadenopathy by size criteria. Chest Wall: Unremarkable. Lungs and Airways: No acute consolidation. There is a small right lower lobe 0.3 cm pulmonary nodule on series 7, image 162 which appears unchanged. The trachea and central airways are patent. Pleura: No pneumothorax or pleural effusions. Heart: Heart size is normal. No pericardial effusion. Thoracic Vessels: The pulmonary arteries are normal in size without filling defects to suggest central pulmonary embolism. Mediastinum and Daysi: No lymphadenopathy by size criteria. Esophagus: No wall thickening. No hiatal hernia. ABDOMEN: Liver: There is diffuse hypoattenuation of the liver consistent with fatty infiltration with relative sparing along the gallbladder fossa. Gallbladder: Within normal limits without calcified gallstones. Biliary ducts: No biliary ductal dilatation. Pancreas: Unremarkable. Spleen: Normal in size. Adrenal Glands: No adrenal nodules. Kidneys and Ureters: No hydronephrosis. Stomach and Bowel: Stomach, small bowel loops, and colon are normal in caliber and wall thickness. The appendix appears surgically absent. There is colonic diverticulosis without acute diverticulitis. Peritoneum: No abnormal intraperitoneal fluid. No free air. Ventral Wall: No hernia. Abdominal Nodes: No retroperitoneal or mesenteric adenopathy by size criteria. Vessels: Aorta and inferior vena cava are normal in size. PELVIS: Pelvic Organs: Unremarkable. Bladder: Unremarkable. Pelvic Nodes: No enlarged lymph nodes. Miscellaneous: No inguinal hernias are seen. Bones: Visualized osseous structures demonstrate no suspicious focal lesions. IMPRESSION: 1. No evidence of aortic aneurysm or dissection. 2. No acute airspace consolidation. 3. No evidence of central pulmonary embolism. 4. Hepatic steatosis. Dictated by: Gareth Medellin M.D. on 06/08/2022 at 22:57 Approved by: Gareth Medellin M.D. on 06/08/2022 at 23:01
--- NOTE | 2022-06-08 23:44 | PM.HP.1 ---
History of Present Illness History of Present Illness Date Patient Seen: 06/09/22 Time Patient Seen: 00:30 Chief complaint: chest pain Narrative: Mr. Brice is a 47M with H obesity, former smoker who presents to the hospital with chest pain. He has been having intermittent chest discomfort for the last few months. He felt squeezing chest pressure at rest that occurred on the left side of his chest. He denies any shortness of breath. He has no radiation of the pain. His pain resolved in route. He felt the pain today was worse that prior which is why he came in. His mother has a history o PR. He has had a stress test many years ago. In the ED workup was done, vitals notable for temp 98, heart rate in the 90s, blood pressure 160s/100s. sats 98% on room air. Labs notable for WBC 9.1, hgb 16.8, plts 232. Creatinine 1.00. Trop 0.065. EKG showed sinus rhythm, qwave in lead 3, and delayed r wave progression. Chest xray showed no acute process. CT chest showed no acute process. He was given aspirin and admitted for further treatment. Patient History Medical History COVID-19 virus infection Neuropathy Surgical History No significant past surgical history Family & Social History Family History Father Renal disease Kidney failure Mother Heart disease [place] (myocardial infarction) Social History: household members spouse,children Safety & Behavioral: Feels Safe in Current Yes Environment Tobacco & Substance use: Smoking Status Former smoker alcohol intake frequency 3 or more drinks per day Substance Use Type marijuana Meds Home Medications and Allergies Home Medications Medication Instructions Recorded Confirmed Type nortriptyline 50 mg capsule 50 mg PO BEDTIME 09/06/20 09/06/20 History omeprazole 20 mg PO DAILY 09/06/20 09/06/20 History Allergies Allergy/AdvReac Type Severity Reaction Status Date / Time No Known Drug Allergies Allergy Verified 03/04/22 10:01 Review of Systems Review of Systems Narrative: 14 systems reviewed and negative aside from what is noted in HPI Exam Vital Signs (past 8 hours): - 06/08/22 21:03 06/08/22 21:17 06/08/22 21:18 Temperature 98 F Pulse Rate 95 H 100 H Respiratory Rate 18 Blood Pressure 160/103 H 154/98 H Pulse Oximetry 98 Oxygen Delivery Method Room Air 06/08/22 21:30 06/08/22 21:30 06/08/22 22:00 Temperature Pulse Rate 100 H Respiratory Rate 22 Blood Pressure 142/94 H 155/102 H Pulse Oximetry 95 Oxygen Delivery Method 06/08/22 22:00 Temperature Pulse Rate 99 H Respiratory Rate 26 H Blood Pressure Pulse Oximetry 95 Oxygen Delivery Method Room Air Oxygen Delivery Method Room Air Narrative Exam Narrative: GEN: no acute distress HEENT: moist mucous membranes, PERRL NECK: trachea midline, no JVD PULM: clear bilaterally, no wheezes, rhonchi, rales CV: regular rate and rhythm, no murmurs ABD: soft, nontender, nondistended, no organomegaly EXT: warm and well perfused, with no edema NEURO: awake, alert, oriented, with no focal deficits Objective Labs 06/08/22 21:10 06/08/22 21:10 Labs: Laboratory Results - last 24 hr 06/08/22 06/08/22 06/08/22 21:10 21:10 21:10 WBC 9.1 RBC 5.42 Hgb 16.8 Hct 48.0 MCV 88.6 MCH 31.1 MCHC 35.1 RDW 13.5 Plt Count 232 Neut % (Auto) 47.6 L Lymph % (Auto) 41.4 H [place] % (Auto) 7.8 Eos % (Auto) 2.4 Baso % (Auto) 0.8 Neut # (Auto) 4300 Lymph # (Auto) 3800 [place] # (Auto) 700 Eos # (Auto) 200 Baso # (Auto) 100 ESR PT 11.2 INR 1.0 APTT 27 D-Dimer Sodium 137 Potassium 4.0 Chloride 101 Carbon Dioxide 26 BUN 15 Creatinine 1.00 Estimated GFR > 60 BUN/Creatinine Ratio 15.0 Glucose 113 H Calcium 9.1 Magnesium 1.8 Total Bilirubin 1.3 AST 32 ALT 38 Alkaline Phosphatase 96 Total Creatine Kinase 121 CK-MB (CK-2) 0.55 CK-MB (CK-2) Rel Index 0.5 L Troponin I 0.065 H C-Reactive Protein Total Protein 8.2 Albumin 4.4 Globulin 3.8 Albumin/Globulin Ratio 1.2 06/08/22 06/08/22 06/08/22 21:10 21:10 21:10 WBC RBC Hgb Hct MCV MCH MCHC RDW Plt Count Neut % (Auto) Lymph % (Auto) [place] % (Auto) Eos % (Auto) Baso % (Auto) Neut # (Auto) Lymph # (Auto) [place] # (Auto) Eos # (Auto) Baso # (Auto) ESR 1 PT INR APTT D-Dimer 389 Sodium Potassium Chloride Carbon Dioxide BUN Creatinine Estimated GFR BUN/Creatinine Ratio Glucose Calcium Magnesium Total Bilirubin AST ALT Alkaline Phosphatase Total Creatine Kinase CK-MB (CK-2) CK-MB (CK-2) Rel Index Troponin I C-Reactive Protein 0.7 Total Protein Albumin Globulin Albumin/Globulin Ratio Assessment & Plan Assessment & Plan narrative: 1. Chest pain, acute -HEART score of 5 -troponin x2 showed intermediate trop 0.066->0.062 -check troponin in AM -received aspirin in ED, continue aspirin -start statin -ordered tele -plan for exercise stress test 2. Hyperlipidemia -start statin, follow up with PCP on discharge 3. Elevated blood pressure -close follow up with PCP to determine if indicated to start anti-hypertensives I have discussed the plan and obtained history from the patient. I have discussed plan of care with ED physician and bedside nurse. I have reviewed labs, EKG, chest xray and previous medical records CODE: Full Proxy: Saida Brice, spouse Time Spent With Patient Critical Care time: I spent a total of [] minutes of critical care time on this patient's care today; this time is exclusive of procedural time. [facility] - Meds 'Current medications' to include all prescriptions, [id number] products, herbals, cannabis/cannabidiol products, and vitamin/mineral/dietary (nutritional) supplements. I have utilized all available resources to obtain, update, or review the patient?s current medications. [If Yes, STOP here]: Yes
[2022-06-08 23:53] LABS: COVID19 -Nasal RAPID Negative (Negative)
[2022-06-09] VITALS: BP 152/95; PULSE 94; RESP 24
[2022-06-09 00:17] LABS: Creatine Kinase 101 U/L (55-170)
[2022-06-09 00:30] VITALS: BP 157/96; PULSE 99; RESP 20; O2SAT 93
[2022-06-09 00:30] LABS: Troponin I 0.062 ng/mL (0.01-0.034)
[2022-06-09 00:33] LABS: CKMB % Relative Index 0.4 % (1.5-5.0)
[2022-06-09 00:58] VITALS: BMI 34.0
[2022-06-09 01:02] VITALS: BP 147/96; PULSE 93; RESP 14; TEMP 36.2; O2SAT 98
[2022-06-09 05:00] VITALS: BP 140/98; PULSE 95; RESP 19; TEMP 35.6; O2SAT 95
[2022-06-09 06:04] LABS: BUN Creatinine Ratio 18.9 (6-22); Blood Urea Nitrogen 17 mg/dL (9-20); Calcium 8.3 mg/dL (8.4-10.2); Carbon Dioxide 24 mmol/L (22-32); Chloride 103 mmol/L (98-107); Estimated Glomerular Filt Rate > 60 mL/min (>60); Glucose 129 mg/dL (70-100); HEMOLYSIS 25 (0-50); Potassium 3.8 mmol/L (3.4-5.1); Sodium 136 mmol/L (137-145)
[2022-06-09 06:15] LABS: Add Manual Diff / Slide Review NO; Basophils Absolute Auto 0 /uL (0-100); Basophils Percent Auto 0.5 % (0-2); Eosinophils Absolute Auto 200 /uL (0-450); Eosinophils Percent Auto 2.7 % (2-4); Hematocrit 45.8 % (41-53); Lymphocytes Absolute Auto 2500 /uL (1100-4500); Lymphocytes Percent Auto 34.5 % (25-40); Mean Corpuscular HGB Conc 34.9 % (30-36); Mean Corpuscular Hemoglobin 30.8 PG (26-34); Mean Corpuscular Volume 88.2 fL (80-100); Monocytes Absolute Auto 700 /uL (0-900); Neutrophils Absolute Auto 3900 /uL (1500-7000); Neutrophils Percent Auto 53.3 % (50-75); Platelet Count 198 X10^3/uL (150-400); Red Blood Cell Count 5.19 X10^6/uL (4.5-5.9); Red Cell Distribution Width 13.3 % (11.6-14.8); White Blood Cell Count 7.3 X10^3/uL (4.5-11.0)
[2022-06-09 06:16] LABS: Troponin I 0.063 ng/mL (0.01-0.034)
[2022-06-09 07:45] VITALS: O2SAT 98
[2022-06-09 08:23] VITALS: BP 148/93; PULSE 71; RESP 19; TEMP 36.1; O2SAT 98
[2022-06-09] MEDS: ASPIRIN EC 81 MG TABLET PO (08:53)
--- NOTE | 2022-06-09 13:09 | CM.DANOTE ---
DCP/Assessment: Reviewed chart. Patient is a 47yr old male admitted to [facility] with chest pain. PCP is Dmitriy at [facility]. Primary payor is 1)[place] 2)Medicaid. Met with patient and spouse/Saida at bedside explained CM/SW role. Patient completely dressed sitting by at window. Patient denies any current chest pain. Patient scheduled to have stress test around 11:00AM. If negative provider reports that patient can go home. Patient and spouse both I in all ADL's and do not request any community resources. P: Home today. KJS Discharge Planning/Care Management Advanced directive, confirm from FAMILY Start: 06/09/22 01:01 Freq: Q24H Status: Active Protocol: Document 06/09/22 01:01 EM (Rec: 06/09/22 01:02 EM [id number]) Advance Directive, confirm on record Time 01:02 Person contacted patient Copy received No CM Discharge Assessment Start: 06/09/22 13:06 Freq: Status: Active Protocol: Document 06/09/22 13:06 KJS (Rec: 06/09/22 13:09 KJS [id number]) Discharge Planning Assessment Assigned Drilling Engineering Manager KIMMY Luu Contact Information Saida Brice (spouse) # [phone] Advance Directives? No: NO Living will, checked requested from family otherwise it will not file. Advance Directives on File No History Provided By Patient,Family Member,Medical Record Has Patient been admitted in last 30 No days? Household Members spouse,children Type of transporation used prior to Drives own vehicle admit Independent with ADL's Yes Is patient alert and oriented? Yes Barriers to Discharge No Comment Patient hopeful he can go home today after results of his cardiac w/u. Discharge Plan Home Transportation Arrangement Family can provide transport at d/c Referrals Initiated None needed Additional Comment Patient denies any need for community resources. Whiteboard Updated in Patient Room with Yes name and ext. # of Drilling Engineering Manager Review Status In Process Next Review Type Continued Stay Review
--- NOTE | 2022-06-09 13:28 | P.DS_ITS ---
History of Present Illness History of Present Illness Date Patient Seen: 06/09/22 Time Patient Seen: 00:30 Chief complaint: chest pain Narrative: Mr. Brice is a 47M with H obesity, former smoker who presents to the hospital with chest pain. He has been having intermittent chest discomfort for the last few months. He felt squeezing chest pressure at rest that occurred on the left side of his chest. He denies any shortness of breath. He has no radiation of the pain. His pain resolved in route. He felt the pain today was worse that prior which is why he came in. His mother has a history o MS. He has had a stress test many years ago. In the ED workup was done, vitals notable for temp 98, heart rate in the 90s, blood pressure 160s/100s. sats 98% on room air. Labs notable for WBC 9.1, hgb 16.8, plts 232. Creatinine 1.00. Trop 0.065. EKG showed sinus rhythm, qwave in lead 3, and delayed r wave progression. Chest xray showed no acute process. CT chest showed no acute process. He was given aspirin and admitted for further treatment. Discharge Providers Provider Date of admission: 06/09/22 00:36 Discharge Date: 06/09/22 Consults: 06/09/22 01:01 Consult to [employer]er Routine Comment: Discharge provider: Andres Fowler DO Summary Hospital Course Discharge Diagnosis: 1. Chest pain, acute -HEART score of 5 -troponin x2 showed intermediate trop 0.066->0.062>0.063 -ordered tele -nuclear stress test normal, low risk study -elected to defer echo 2. Hyperlipidemia -start statin, follow up with PCP on discharge 3. Elevated blood pressure -close follow up with PCP to determine if indicated to start anti-hypertensives Hospital Course: Admitted for chest pain. Underwent nuclear stress test which was normal. Discharged home. Time Spent with Patient Time spent: Greater than 30 minutes Exam Vital Signs (past 8 hours): - 06/09/22 08:23 06/09/22 07:45 Temperature 96.9 F L Pulse Rate 71 Respiratory Rate 19 Blood Pressure 148/93 H Pulse Oximetry 98 98 Oxygen Delivery Method Room Air Oxygen Flow Rate 0 0 Oxygen Delivery Method Room Air Oxygen Flow Rate 0 Narrative Exam Narrative: GEN: no acute distress HEENT: moist mucous membranes, PERRL NECK: trachea midline, no JVD PULM: clear bilaterally, no wheezes, rhonchi, rales CV: regular rate and rhythm, no murmurs ABD: soft, nontender, nondistended, no organomegaly EXT: warm and well perfused, with no edema NEURO: awake, alert, oriented, with no focal deficits Objective Labs 06/09/22 05:38 06/09/22 05:38 Labs: Laboratory Results - last 24 hr 06/08/22 06/08/22 06/08/22 21:10 21:10 21:10 WBC 9.1 RBC 5.42 Hgb 16.8 Hct 48.0 MCV 88.6 MCH 31.1 MCHC 35.1 RDW 13.5 Plt Count 232 Neut % (Auto) 47.6 L Lymph % (Auto) 41.4 H Bartholomew % (Auto) 7.8 Eos % (Auto) 2.4 Baso % (Auto) 0.8 Neut # (Auto) 4300 Lymph # (Auto) 3800 Bartholomew # (Auto) 700 Eos # (Auto) 200 Baso # (Auto) 100 ESR PT 11.2 INR 1.0 APTT 27 D-Dimer Sodium 137 Potassium 4.0 Chloride 101 Carbon Dioxide 26 BUN 15 Creatinine 1.00 Estimated GFR > 60 BUN/Creatinine Ratio 15.0 Glucose 113 H Calcium 9.1 Magnesium 1.8 Total Bilirubin 1.3 AST 32 ALT 38 Alkaline Phosphatase 96 Total Creatine Kinase 121 CK-MB (CK-2) 0.55 CK-MB (CK-2) Rel Index 0.5 L Troponin I 0.065 H C-Reactive Protein Total Protein 8.2 Albumin 4.4 Globulin 3.8 Albumin/Globulin Ratio 1.2 SARS-CoV-2 (PCR) 06/08/22 06/08/22 06/08/22 21:10 21:10 21:10 WBC RBC Hgb Hct MCV MCH MCHC RDW Plt Count Neut % (Auto) Lymph % (Auto) Bartholomew % (Auto) Eos % (Auto) Baso % (Auto) Neut # (Auto) Lymph # (Auto) Bartholomew # (Auto) Eos # (Auto) Baso # (Auto) ESR 1 PT INR APTT D-Dimer 389 Sodium Potassium Chloride Carbon Dioxide BUN Creatinine Estimated GFR BUN/Creatinine Ratio Glucose Calcium Magnesium Total Bilirubin AST ALT Alkaline Phosphatase Total Creatine Kinase CK-MB (CK-2) CK-MB (CK-2) Rel Index Troponin I C-Reactive Protein 0.7 Total Protein Albumin Globulin Albumin/Globulin Ratio SARS-CoV-2 (PCR) 06/08/22 06/08/22 06/09/22 23:30 23:59 05:38 WBC 7.3 RBC 5.19 Hgb 16.0 Hct 45.8 MCV 88.2 MCH 30.8 MCHC 34.9 RDW 13.3 Plt Count 198 Neut % (Auto) 53.3 Lymph % (Auto) 34.5 Bartholomew % (Auto) 9.0 Eos % (Auto) 2.7 Baso % (Auto) 0.5 Neut # (Auto) 3900 Lymph # (Auto) 2500 Bartholomew # (Auto) 700 Eos # (Auto) 200 Baso # (Auto) 0 ESR PT INR APTT D-Dimer Sodium Potassium Chloride Carbon Dioxide BUN Creatinine Estimated GFR BUN/Creatinine Ratio Glucose Calcium Magnesium Total Bilirubin AST ALT Alkaline Phosphatase Total Creatine Kinase 101 CK-MB (CK-2) 0.40 CK-MB (CK-2) Rel Index 0.4 L Troponin I 0.062 H C-Reactive Protein Total Protein Albumin Globulin Albumin/Globulin Ratio SARS-CoV-2 (PCR) Negative 06/09/22 06/09/22 05:38 05:38 WBC RBC Hgb Hct MCV MCH MCHC RDW Plt Count Neut % (Auto) Lymph % (Auto) Bartholomew % (Auto) Eos % (Auto) Baso % (Auto) Neut # (Auto) Lymph # (Auto) Bartholomew # (Auto) Eos # (Auto) Baso # (Auto) ESR PT INR APTT D-Dimer Sodium 136 L Potassium 3.8 Chloride 103 Carbon Dioxide 24 BUN 17 Creatinine 0.90 Estimated GFR > 60 BUN/Creatinine Ratio 18.9 Glucose 129 H Calcium 8.3 L Magnesium Total Bilirubin AST ALT Alkaline Phosphatase Total Creatine Kinase CK-MB (CK-2) CK-MB (CK-2) Rel Index Troponin I 0.063 H C-Reactive Protein Total Protein Albumin Globulin Albumin/Globulin Ratio SARS-CoV-2 (PCR) [facility] Medical History COVID-19 virus infection Neuropathy Surgical History No significant past surgical history Family History Father Renal disease Kidney failure Mother Heart disease [place] (myocardial infarction) Social History household members: spouse and children Smoking Status: Former smoker Discharge Plan Discharge Plan Patient Disposition: Home Discharge orders & Medications Prescriptions: Continued nortriptyline 50 mg capsule 50 mg PO BEDTIME omeprazole capsule 20 mg PO DAILY Visit Report/Discharge Packet Stand Alone Forms: Patient Portal/API, Stroke Signs & Symptoms Discharge Data Attending Provider: Palmer Cheatham
--- NOTE | 2022-06-09 13:56 | PC.NURSE ---
Pt is dressed and ready for discharge home with Spouse. IV has been removed. Discussed continuing meds, stroke education, and following up with his PCP or [facility] as directed. Pt denied questions and was taken out via w/c by RN to POV with Spouse and all belongings.
--- NOTE | 2022-06-10 00:11 | DI.NM.S_ITS ---
DATE OF SERVICE: 06/09/2022 PROCEDURE: Pharmacological perfusion study. INDICATIONS: Chest pain with underlying hypertension, hyperlipidemia, obesity, history of smoking. RADIOPHARMACEUTICAL: 26.7 millicurie technetium-99m Myoview IV was injected at stress and 10.6 millicurie technetium-99m Myoview IV was injected at rest. It was a one-day protocol. CARDIAC STRESS: The patient underwent IV Lexiscan perfusion study under the supervision of an attending staff using standard IV Lexiscan as per protocol. The patient remained hemodynamically stable. Baseline blood pressure was 140/100. Baseline rhythm was sinus. During stress, no convincing ischemic changes seen. No significant arrhythmias seen. The patient had minimal dyspnea. No chest discomfort. RAW DATA: There is increased subdiaphragmatic activity. The patient's weight is 230 pounds. GATED STUDY: Stress LV ejection fraction 73% without any obvious wall motion abnormalities. Resting end-diastolic volume 83 mL. TID ratio 0.95, which is within normal limits. Lung/heart ratio 0.31, which is within normal limits. MYOCARDIAL PERFUSION SCAN: Stress supine, resting supine and stress prone images were compared to each other. Resting supine images revealed small size, mildly decreased perfusion of basal inferior wall as well as distal inferior wall. Stress supine images revealed mildly decreased perfusion of basal inferior wall. The stress prone images revealed normal myocardial perfusion. CONCLUSION: This is a normal myocardial perfusion study with evidence of diaphragmatic tissue attenuation artifact, which got resolved during stress prone images. Preserved left ventricular function. No ischemic electrocardiographic changes. No significant arrhythmias. Overall, low-risk myocardial perfusion scan. Jonatan Brice - BYRON/bimal/eri doc#: [id number]/job#: [id number] dd: 06/09/2022 12:51:00 dt: 06/09/2022 23:42:00 DICTATING MD/COPIES TO: Artis Greenberg MD COPIES MNE: WILLY;
== END 2022-06-09 14:09 | disposition home or self-care (01) ==
LOC: ED 21:06 → AC 06-09 00:37
PROVIDERS: Admitting Provider Internal Medicine; Emergency Provider Emergency Medicine; Visit Provider Internal Medicine
DX: R07.9 Chest pain, unspecified (principal); R03.0 Elevated blood-pressure reading, without diagnosis of hypertension; E78.5 Hyperlipidemia, unspecified; Z20.822 Contact with and (suspected) exposure to COVID-19
CPT/HCPCS: 36415; 71045; 71275; 74174; 78452; 80048; 80053; 82550; 82553; 83735; 84484; 85025; 85379; 85610; 85651; 85730; 86140; 87635; 93005; 93010; 93017; 99284; C9803; G0378; A9502; J2785; Q9967

== ENCOUNTER 2022-09-05 09:56 | Emergency (ER) | payer OTHER, MEDICAID, SELFPAY ==
[2022-09-05 10:09] VITALS: BP 136/74; PULSE 98; RESP 16; TEMP 36.3; O2SAT 98; BMI 36.1
--- NOTE | 2022-09-05 10:37 | ED.URI ---
HPI - URI/Sore Throat General Chief Complaint: Upper Respiratory Symptoms Stated Complaint: cold symptoms for over 2 mo Time Seen by Provider: 09/05/22 10:09 Source: patient Mode of arrival: Ambulatory Limitations: no limitations History of Present Illness HPI Narrative: This is a 47-year-old male with history of neuropathy, THC use with complaint of seasonal congestion that moved into his chest with hoarseness for the past 2 months. Patient states it started with upper respiratory symptoms in his nose and cheeks, the move down to his chest he states his chest feels clear but has developed hoarseness and sore throat. He had fevers initially has not had any fevers for the past 6 weeks. He is had no chest pain or shortness of breath. Cough but nonproductive. Some hoarseness that has been persistent. Patient denies any active nasal congestion currently. Denies any nausea or vomiting. Denies any diarrhea constipation. No swelling in his extremities. States nortriptyline his only daily medication for neuropathy in his feet. Denies any surgeries. Former smoker, drinks alcohol 3 or 4 times weekly, uses marijuana. No illicit or IV drugs. Patient did have an observation for chest pain had stress testing which was negative. Patient presents today symptoms have just been persistent and not improving. Related Data Home Medications Medication Instructions Recorded Confirmed nortriptyline 50 mg capsule 50 mg PO BEDTIME 09/06/20 06/09/22 omeprazole 20 mg PO DAILY 09/06/20 06/09/22 Previous Rx's Medication Instructions Recorded azithromycin 250 mg tablet See Rx Instructions PO .COMPLEX #6 09/05/22 tabs Allergies Allergy/AdvReac Type Severity Reaction Status Date / Time No Known Drug Allergies Allergy Verified 03/04/22 10:01 Review of Systems Review of Systems ROS Unobtainable: All systems reviewed & are unremarkable except as noted in HPI and below Patient History Medical History COVID-19 virus infection Neuropathy Surgical History No significant past surgical history Family History Father Renal disease Kidney failure Mother Heart disease [place] (myocardial infarction) Social History household members: spouse and children Smoking Status: Former smoker Smoking Status: Former smoker alcohol intake frequency: 3 or more drinks per day Substance Use Type: marijuana Exam Narrative Exam Narrative: GEN: obese, well appearing male, alert and oriented x 3, patient appears to be in mild distress. HEENT: Atraumatic, pupils are equal round reactive to light, extraocular movements are intact, nares are clear, TMs are clear with no fluid, there is no conjunctival pallor. Throat is clear without any exudates, erythema, mild bilateral tonsillar enlargement, no uvular deviation, slight hoarseness, no cervical lymphadenopathy. No stridor. HEART: Regular rate and rhythm without murmur, clicks, rubs. LUNGS:Lungs clear to auscultation, no wheezes, rales, crackles, chest moves symmetrically ABD:bowel sounds normal, soft, non-tender, no guarding, rebound, rigidity, no masses noted, no hepatosplenomegaly MSCL: Non-tender, no muscle atrophy, muscles strength 5/5 upper and lower extremities, full range of motion, normal gait NEURO:CN 2-12 intact, sensation normal. SKIN: No rash, erythema or other skin changes. Initial Vital Signs Initial Vital Signs: Vital Signs Temperature 97.4 F L 09/05/22 10:09 Pulse Rate 98 H 09/05/22 10:09 Respiratory Rate 16 09/05/22 10:09 Blood Pressure 136/74 09/05/22 10:09 Pulse Oximetry 98 09/05/22 10:09 Oxygen Delivery Method Room Air 09/05/22 10:09 Course Vital Signs Vital signs: Vital Signs - 8 hr 09/05/22 10:09 Temperature 97.4 F L Pulse Rate 98 H Respiratory Rate 16 Blood Pressure 136/74 Pulse Oximetry 98 Oxygen Delivery Method Room Air MDM - URI/Sore Throat MDM Narrative Medical decision making narrative: This is a 47-year-old male with history of THC use and on nortriptyline for on diabetic neuropathy. Patient presents with complaint of 2 months symptoms that have progressed from upper respiratory to chest congestion to more pharyngitis. I suspect he is had multiple viral infections in a row but has had persistent symptoms discussed with patient would hold off on taking any medications symptomatic control but if continuing to persist for another week or so could start antibiotic. Also recommended patient follow up he is having persistent symptoms for further workup or return to the ER. Discharge Plan Departure Patient Disposition: Home Clinical Impression: Pharyngitis Instructions: DI for Pharyngitis/Tonsillopharyngitis -- Adult Activity Restrictions/Additional Instructions: Please follow-up with your physician for recheck if your symptoms continue to persist for further workup, especially if you are hoarseness persists for more than several weeks. You likely have a viral infection causing your symptoms but if they are persisting you can start oral antibiotic. Prescription sent to [facility]. Please return for fevers, new chest pain, shortness of breath, persistent vomiting, swelling lips, mouth or tongue, inability to swallow your saliva secretions, stridor or high-pitched wheezing or other new or concerning changes. Prescriptions: New azithromycin 250 mg tablet See Rx Instructions .ROUTE .COMPLEX Qty: 6 0RF Rx Instructions: For 250 mg dose pack: take 500 mg today (day 1), then 250 mg for 4 days (days 2-5) No Action nortriptyline 50 mg capsule 50 mg PO BEDTIME omeprazole capsule 20 mg PO DAILY Stand Alone Forms: Patient Portal/API
== END 2022-09-05 10:59 | disposition home or self-care (01) ==
PROVIDERS: Emergency Provider Emergency Medicine
DX: J02.9 Acute pharyngitis, unspecified (principal)
CPT/HCPCS: 99281

== ENCOUNTER 2023-07-27 14:45 | Emergency (ER) | payer OTHER, MEDICAID, SELFPAY ==
[2023-07-27 14:56] VITALS: BP 149/98; PULSE 95; RESP 18; TEMP 36.5; O2SAT 99; BMI 36.1
--- NOTE | 2023-07-27 15:39 | ED.URI ---
HPI - URI/Sore Throat <Linda Rao PA-C - Last Filed: 07/27/23 15:49> General Chief Complaint: Upper Respiratory Symptoms Stated Complaint: Sore Throat Time Seen by Provider: 07/27/23 15:28 History of Present Illness HPI Narrative: 48-year-old male presents today for symptoms going on for about 3 weeks. He states I get this every year and whatever I was given last year worked.? He reports trying Phuong thinking it was allergies, and a Neti pot, and some type of nasal spray ?that the doctor gave me at 1 point but I do not remember the name. He is denying any fever, any disruption during sleep, no chills, body aches, no recent travel. 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 He reports mainly nasal congestion and sinus pressure. He is denying any teeth pain, any bleeding from the nose any ear fullness or soreness of throat per se but he believes he is having some drainage in the back of the throat. Denies any cough, wheezing, difficulty breathing. No history of airspace disease or pneumonia. No difficulty swallowing, he is denying any testing today he would just like to ?get the antibiotic I had last time?. He states that his healthcare maintenance is up-to-date. No known drug allergies. All other systems are reviewed and are negative. Related Data Home Medications Medication Instructions Recorded Confirmed nortriptyline 50 mg capsule 50 mg PO BEDTIME 09/06/20 06/09/22 omeprazole 20 mg PO DAILY 09/06/20 06/09/22 Previous Rx's Medication Instructions Recorded azithromycin 250 mg tablet See Rx Instructions PO .COMPLEX #6 09/05/22 tabs azithromycin 250 mg tablet See Rx Instructions PO .COMPLEX #6 07/27/23 (Zithromax Z-Anirudh) tabs Allergies Allergy/AdvReac Type Severity Reaction Status Date / Time No Known Drug Allergies Allergy Verified 03/04/22 10:01 Review of Systems <Linda Rao PA-C - Last Filed: 07/27/23 15:49> Review of Systems Narrative: All other systems reviewed and are negative. Patient History <Linda Rao PA-C - Last Filed: 07/27/23 15:49> Medical History COVID-19 virus infection Neuropathy Surgical History No significant past surgical history Family History Father Renal disease Kidney failure Mother Heart disease [place] (myocardial infarction) Social History household members: spouse and children Smoking Status: Former smoker Smoking Status: Former smoker alcohol intake frequency: 3 or more drinks per day Substance Use Type: marijuana Exam <Linda Rao PA-C - Last Filed: 07/27/23 15:49> Initial Vital Signs Initial Vital Signs: Vital Signs Temperature 97.7 F 07/27/23 14:56 Pulse Rate 95 H 07/27/23 14:56 Respiratory Rate 18 07/27/23 14:56 Blood Pressure 149/98 H 07/27/23 14:56 Pulse Oximetry 99 07/27/23 14:56 Oxygen Delivery Method Room Air 07/27/23 14:56 Vital signs reviewed and are normal except for elevated blood pressure reading today. Const Other: Smiling, seated, no distress, slightly nasal sounding. Work of breathing is normal. [facility] Head: normal to inspection, normocephalic and atraumatic Nose: external nose normal, nares normal, No epistaxis, mucous membranes and turbinates abnormal ([place] turbinates swollen left greater than right left mild obstruction. ), nasal discharge (Clear no purulence.), No nasal polyp, No septum abnormal and TMJ nontender Face and sinus: normal facial exam, face symmetric and sinus tenderness (No guarding, mild tenderness.) frontal and maxillary Teeth and gingiva: dentition normal and gingiva normal Throat: posterior oropharynx normal, tonsils normal and uvula midline Eyes Conjunctivae: conjunctivae normal Other: No allergic shiners, upper and lower lids normal. Neck Other: Full range of motion of the neck, no adenopathy. Resp Other: Clear to auscultation throughout, no wheezes rales or rhonchi, equal expansion no reproducible cough with deep inspiration. Cardio Other: Regular rate and rhythm. No tachycardia. <Bobbi Denson DO - Last Filed: 07/30/23 10:12> Initial Vital Signs Initial Vital Signs: Vital Signs Temperature 97.7 F 07/27/23 14:56 Pulse Rate 95 H 07/27/23 14:56 Respiratory Rate 18 07/27/23 14:56 Blood Pressure 149/98 H 07/27/23 14:56 Pulse Oximetry 99 07/27/23 14:56 Oxygen Delivery Method Room Air 07/27/23 14:56 Course <Linda Rao PA-C - Last Filed: 07/27/23 15:49> Vital Signs Vital signs: Vital Signs - 8 hr 07/27/23 14:56 Temperature 97.7 F Pulse Rate 95 H Respiratory Rate 18 Blood Pressure 149/98 H Pulse Oximetry 99 Oxygen Delivery Method Room Air <Bobbi Denson DO - Last Filed: 07/30/23 10:12> Vital Signs Vital signs: Vital Signs - 8 hr 07/27/23 14:56 Temperature 97.7 F Pulse Rate 95 H Respiratory Rate 18 Blood Pressure 149/98 H Pulse Oximetry 99 Oxygen Delivery Method Room Air MDM - URI/Sore Throat <Linda Rao PA-C - Last Filed: 07/27/23 15:49> Medical Records Attestation: I reviewed the patient's medical records. [facility] Narrative Medical decision making narrative: He has no fever, he has prolonged symptoms lasting 3 weeks now has not tried a decongestant. Requesting azithromycin in the form of a 5 day Z-Anirudh. No known drug allergies. He is declining any testing whatsoever. His Centor criteria is 0. We will treat for prolonged URI with sinus involvement in the absence of fever. I recommend that he takes pseudoephedrine although he should use caution as this can increase blood pressure, continue the Neti pot and regular saline rinses. Please follow-up with your primary care if her symptoms persist or return to the emergency department. Red flag warning signs reviewed in detail. May wish to try humidified air, steam therapy and please hydrate. Discharge Plan Departure Patient Disposition: Home Clinical Impression: Sinusitis Qualifiers: Sinusitis location: unspecified location Chronicity: unspecified Qualified Code(s): J32.9 - Chronic sinusitis, unspecified Instructions: DI for Sinusitis Activity Restrictions/Additional Instructions: I have prescribed azithromycin in the form of a 5 day Z-Anirudh, this is the medication that you had last year. We advised if this medication does not improve her symptoms to please see your doctor in follow-up. I recommend you continue the Neti pot and saline nasal rinses, might want to consider a nasal decongestant although some decongestants can elevate blood pressure. Your blood pressure was slightly elevated today you should have this rechecked with your primary care provider. Make sure to hydrate, do not forget steam therapy or hot tea, please seek medical attention if anything worsens or does not resolve or you have any new worrisome symptoms. Prescriptions: New azithromycin [Zithromax Z-Anirudh] 250 mg tablet See Rx Instructions .ROUTE .COMPLEX Qty: 6 0RF Rx Instructions: For 250 mg dose pack: take 500 mg today (day 1), then 250 mg for 4 days (days 2-5) No Action azithromycin 250 mg tablet See Rx Instructions .ROUTE .COMPLEX Qty: 6 0RF Rx Instructions: For 250 mg dose pack: take 500 mg today (day 1), then 250 mg for 4 days (days 2-5) nortriptyline 50 mg capsule 50 mg PO BEDTIME omeprazole capsule 20 mg PO DAILY Referrals: Miscellaneous,Doctor, [Primary Care Provider] - Stand Alone Forms: Patient Portal/API ED Sign-out <Bobbi Denson DO - Last Filed: 07/30/23 10:12> Cosign ED Attending Sharonature Attestation: I was immediately available in the department for consultation.
--- NOTE | 2023-07-27 15:54 | PC.NURSE ---
sinus congestion x3 weeks. states similar episode last year.
== END 2023-07-27 15:55 | disposition home or self-care (01) ==
PROVIDERS: Emergency Provider Physician Assistant Medical
DX: J32.9 Chronic sinusitis, unspecified (principal)
CPT/HCPCS: 99281

== ENCOUNTER 2023-08-22 06:59 | Emergency (ER) | payer OTHER, MEDICAID, SELFPAY ==
[2023-08-22 07:15] VITALS: BP 136/88; PULSE 88; RESP 18; TEMP 36.5; O2SAT 96; BMI 36.1
--- NOTE | 2023-08-22 07:33 | ED.GENADULT ---
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 He denies blurred vision. He denies contact use. He does not have any spots in his field of vision on the right symptomatic side. No eye discharge. No loss of vision. Last tetanus <5 years ago he stated when asked. Related Data Home Medications Medication Instructions Recorded Confirmed nortriptyline 50 mg capsule 50 mg PO BEDTIME 09/06/20 06/09/22 omeprazole 20 mg PO DAILY 09/06/20 06/09/22 Previous Rx's Medication Instructions Recorded azithromycin 250 mg tablet See Rx Instructions PO .COMPLEX #6 09/05/22 tabs azithromycin 250 mg tablet See Rx Instructions PO .COMPLEX #6 07/27/23 (Zithromax Z-Anirudh) tabs Allergies Allergy/AdvReac Type Severity Reaction Status Date / Time No Known Drug Allergies Allergy Verified 03/04/22 10:01 Review of Systems Review of Systems ROS Unobtainable: All systems reviewed & are unremarkable except as noted in HPI and below Patient History Medical History COVID-19 virus infection Neuropathy Surgical History No significant past surgical history Family History Father Renal disease Kidney failure Mother Heart disease ND (myocardial infarction) Social History household members: spouse and children Smoking Status: Former smoker Smoking Status: Former smoker alcohol intake frequency: 3 or more drinks per day Substance Use Type: marijuana Exam Narrative Exam Narrative: GENERAL: Well-developed patient, in mild distress. HEAD: Atraumatic. Normocephalic. EYES: Injected right sclerae, no significant discharge, no eyelid edema swelling redness. Pupils equal round and reactive. Extraocular motions intact. No scleral icterus. No injection or drainage. Fluorescein after proparacaine topical anesthetic to right eye, with was let magnification there is a small area of punctate uptake at 6:00 a.m. position pupil ENT: Nose without bleeding, purulent drainage. Throat without erythema, tonsillar hypertrophy or exudate. Airway patent. NECK: Trachea midline. Non tender CARDIOVASCULAR: Regular rate and rhythm without murmurs, gallops, or rubs. RESPIRATORY: Clear to auscultation. Breath sounds equal bilaterally. No wheezes, rales, or rhonchi. GASTROINTESTINAL: Abdomen soft, non-tender, nondistended. EXTREMITIES: No edema or joint tenderness. BACK: Nontender without deformity or crepitance. No flank tenderness. NEURO: AOx3. SKIN: No rash or erythema of visible areas Initial Vital Signs Initial Vital Signs: Vital Signs Temperature 97.7 F 08/22/23 07:15 Pulse Rate 88 08/22/23 07:15 Respiratory Rate 18 08/22/23 07:15 Blood Pressure 136/88 08/22/23 07:15 Pulse Oximetry 96 08/22/23 07:15 Oxygen Delivery Method Room Air 08/22/23 07:15 Course Orders Ordered: Discontinued Medications Fluorescein Sodium (Fluorescein 1 Mg Strip) 1 mg EYE-RIGHT NOW ONE Stop: 08/22/23 07:40 Last Admin: 08/22/23 07:44 Dose: 1 mg Documented By: SHAY Proparacaine HCl (Proparacaine 0.5% Ophth Milagros) 1 drops EYE-RIGHT NOW ONE Stop: 08/22/23 07:40 Last Admin: 08/22/23 07:44 Dose: 1 drop Documented By: SHAY Vital Signs Vital signs: Vital Signs - 8 hr 08/22/23 07:15 Temperature 97.7 F Pulse Rate 88 Respiratory Rate 18 Blood Pressure 136/88 Pulse Oximetry 96 Oxygen Delivery Method Room Air Medical Decision Making Differential Diagnosis Differential Diagnosis: Corneal abrasion, iritis, conjunctivits, corneal foreign body, other MDM Narrative Medical decision making narrative: 48-year-old male with right eye pain, no foreign body sensation, on fluorescein exam seemed to have a small area 6 o'clock position uptake on Wood's lamp magnification, could consider slit-lamp exam now, however I would not be wanting to attempt any foreign body removal in the pupillary cornea, local eye clinic open later this morning Tuesday in the next 15 minutes, we will contact them to see if they could further evaluate patient. Could consider antibiotics, but topical erythromycin ointment is fairly goopy, they may choose a different antibiotic, and ointment might interfere with your examination. Tetanus status up-to-date he states, declines any tetanus shot here now. We will contact eye clinic when open in the next 10 minutes or so. Case discussed with eye clinic Dr Gallagher, says to send patient over now. Discharged, over to Eye Clinic with Discharge Plan Departure Patient Disposition: Home Clinical Impression: Abrasion, corneal Instructions: DI for Eye Pain Activity Restrictions/Additional Instructions: Right eye pain since yesterday, on fluorescein examination with Wood's lamp magnification there seems to be a 6 o'clock position small area of uptake in the pupillary zone of the cornea, you stated your tetanus was up-to-date, declined any tetanus shot now. Could consider antibiotics, however this might interfere with slit-lamp or other ophthalmology/optometry examination. Mid tuesday morning I clinic open later this morning, for further evaluation and increased magnification, and possible better ability to remove any foreign body if seen on upon greater magnification. Hold antibiotics for now, as topical erythromycin or other ointment might interfere with her examination. Referred to [facility], [address] [place] [address] Prescriptions: No Action azithromycin 250 mg tablet See Rx Instructions .ROUTE .COMPLEX Qty: 6 0RF Rx Instructions: For 250 mg dose pack: take 500 mg today (day 1), then 250 mg for 4 days (days 2-5) azithromycin [Zithromax Z-Anirudh] 250 mg tablet See Rx Instructions .ROUTE .COMPLEX Qty: 6 0RF Rx Instructions: For 250 mg dose pack: take 500 mg today (day 1), then 250 mg for 4 days (days 2-5) nortriptyline 50 mg capsule 50 mg PO BEDTIME omeprazole capsule 20 mg PO DAILY Referrals: Miscellaneous,Doctor, MD [Primary Care Provider] - Stand Alone Forms: Patient Portal/API
[2023-08-22] MEDS: PROPARACAINE 0.5% OPHTH SOL 1 DROPS EYE-RIGHT (07:44)
[2023-08-22] MEDS: FLUORESCEIN 1 MG STRIP EYE-RIGHT (07:44)
--- NOTE | 2023-08-22 08:20 | PC.NURSE ---
pt unable to perform visual acuity do to not being able to open his eye lid long enough for exam.
== END 2023-08-22 08:21 | disposition home or self-care (01) ==
PROVIDERS: Emergency Provider Emergency Medicine
DX: S05.01XA Injury of conjunctiva and corneal abrasion without foreign body, right eye, initial encounter (principal); X58.XXXA Exposure to other specified factors, initial encounter
CPT/HCPCS: 99282